=== PATIENT | male | born 1950 | race Caucasian/White ===

== ENCOUNTER 2016-12-04 10:38 | Inpatient (IN) | payer MEDICARE, MEDICAID ==
[~2016-12-04] VITALS: Ht 182.9 cm; Wt 71.0 kg
[2016-12-04] VITALS (11 sets, daily range): BP systolic 83–156; BP diastolic 51–85; PULSE 56–115; RESP 18–20; TEMP 98.4–100.6; O2SAT 97–100
[~2016-12-04 10:38] MED LIST: AMLO5TAB96 PO; ASPI81 PO; GEMF600 PO; GLIP-146 PO; GLIP1TAB18 PO; GLUC10TA3 PO; HYDR-2768 PO; LISI-366 PO; LISI10TA PO; LORA10TA7 PO; METF-324 PO; METO50TA PO; NIFE60TA5 PO; SIMV20 PO
[2016-12-04] MEDS ORDERED: PIPERACIL-TAZO 4.5 GM PREMIX 100 ML IV STA (11:29)
[2016-12-04] MEDS ORDERED: VANCOMYCIN INJ 1,000 MG in SODIUM CHLOR 0.9% 250 ML INJ 250 ML IV STA (11:29)
[2016-12-04] MEDS ORDERED: SODIUM CHLOR 0.9% 1000 ML INJ 1,000 ML IV ONE (11:30)
--- NOTE | 2016-12-04 11:32 | PD ---
HPI Chief Complaint: Skin Problem Time Seen by Provider: 11:29 Travel History International Travel<30 days: No Contact w/Intl Traveler<30days: No Traveled to known affect area: No History of Present Illness HPI 66-year-old male with history of diabetes and schizophrenia, presents to the ER today because of several days history of left foot pain and difficulty walking secondary to pain, has been having fevers according to patient's son. He denies any other issues. Son noticed that there has been increased redness and an ulcer in the bottom of the foot. Modifying Factors: None Associated Signs & Symptoms: Several days of left foot pain and fevers Risk Factors: Diabetic PFSH Past Medical History Blood Disorders: No Cancer: No Cardiovascular Problems: Yes High Cholesterol: Yes Diabetes: Yes Endocrine: Yes Genitourinary: No Hypertension: Yes Immune Disorder: No Musculoskeletal: No Neurologic: No Psychiatric: Yes (SCHIZOPHRENIA) Reproductive: No Respiratory: No Schizophrenia: Yes PNEUMOCCOCAL Vaccine (Year): 2 Past Surgical History Abdominal Surgery: No AICD: No Arteriovenous Shunt: No Cardiac Surgery: No Ear Surgery: No Endocrine Surgery: No Eye Surgery: Yes (CATARACTS) Genitourinary Surgery: No Insulin Pump: No Joint Replacement: No Oral Surgery: No Pacemaker: No Thoracic Surgery: No Social History Alcohol Use: No Tobacco Use: No Substance Use: No Allergies-Medications (Allergen,Severity, Reaction): Coded Allergies: No Known Allergies (Verified , 12/04/16) Reported Meds & Prescriptions Reported Meds & Active Scripts Active Reported Tradjenta (Linagliptin) 5 Mg Tab 5 Mg PO DAILY Metoprolol Succinate ER 24 HR (Metoprolol Succinate) 100 Mg Tab 100 Mg PO DAILY Metformin (Metformin HCl) 1,000 Mg Tab 1,000 Mg PO BIDPC With meals Lisinopril 20 Mg Tab 40 Mg PO DAILY Lantus Inj (Insulin Glargine) 1,000 Unit/10 Ml Vial 10 Units SQ HS Ketoconazole Topical 2% Cream 1 Applic TOPICAL DAILY Invokana (Canagliflozin) 300 Mg Tab 300 Mg PO DAILY Take before 1st meal of day. Hydrochlorothiazide 25 Mg Tab 25 Mg PO DAILY Glipizide ER (Glipizide) 10 Mg Jeanette 10 Mg PO DAILY Take with breakfast or first main meal of the day Folic Acid 1 Mg Tablet 1 Tab PO DAILY Fish Oil 1,000 mg Softgel (Cowden-3/Dha/Epa/Fish Oil) 1,000 Mg Capsule 2,000 Mg PO BID Atorvastatin (Atorvastatin Calcium) 20 Mg Tab 20 Mg PO HS Review of Systems Except as stated in HPI: all other systems reviewed are Neg Physical Exam Narrative GENERAL: Well-developed elderly white male patient currently in mild distress. Awake, alert. SKIN: Focused skin assessment warm/dry. HEAD: Atraumatic. Normocephalic. EYES: Pupils equal and round. No scleral icterus. No injection or drainage. ENT: No nasal bleeding or discharge. Mucous membranes pink and moist. NECK: Trachea midline. No JVD. CARDIOVASCULAR: Regular rate and rhythm. No murmur appreciated. RESPIRATORY: No accessory muscle use. Clear to auscultation. Breath sounds equal bilaterally. GASTROINTESTINAL: Abdomen soft, non-tender, nondistended. Hepatic and splenic margins not palpable. MUSCULOSKELETAL: No obvious deformities. No clubbing. No cyanosis. No edema. Left foot: There is notable edema and erythema especially over the second and third toes and metatarsal areas. There is a 1 cm ulcer at the bottom of the foot as well and this area. NEUROLOGICAL: Awake and alert. No obvious cranial nerve deficits. Motor grossly within normal limits. Normal speech. PSYCHIATRIC: Appropriate mood and affect; insight and judgment normal. Data Data Last Documented VS Vital Signs Date Time Temp Pulse Resp B/P Pulse Ox O2 Delivery O2 Flow Rate FiO2 12/04/16 12:31 90 18 114/62 97 Room Air 12/04/16 11:37 99.2 Orders Complete Blood Count With Diff (12/04/16 11:23) Comprehensive Metabolic Panel (12/04/16 11:23) Lactic Acid Sepsis Protocol (12/04/16 11:23) Blood Culture (12/04/16 11:23) Blood Glucose (12/04/16 11:23) Ecg Monitoring (12/04/16 11:23) Iv Access Insert/Monitor (12/04/16 11:23) Oximetry (12/04/16 11:23) Oxygen Administration (12/04/16 11:23) Sodium Chlor 0.9% 1000 Ml Inj (Ns 1000 M (12/04/16 11:30) Piperacil-Tazo 4.5 Gm Premix (Zosyn 4.5 (12/04/16 11:29) Vancomycin Inj (Vancomycin Inj) (12/04/16 11:29) Foot, Complete ([id number]) (12/04/16 11:29) Wound Culture And Gram Stain (12/04/16 12:46) Admit Order (Ed Use Only) (12/04/16 12:51) Labs Laboratory Tests Test 12/04/16 12/04/16 11:11 11:12 Sodium Level 132 MEQ/L Potassium Level 4.1 MEQ/L Chloride Level 98 MEQ/L Carbon Dioxide Level 21.9 MEQ/L Anion Gap 12 MEQ/L Blood Urea Nitrogen 28 MG/DL Creatinine 1.40 MG/DL Estimat Glomerular Filtration 51 ML/MIN Rate Random Glucose 293 MG/DL Lactic Acid Level 2.0 mmol/L Calcium Level 8.5 MG/DL Total Bilirubin 0.8 MG/DL Aspartate Amino Transf 15 U/L (AST/SGOT) Alanine Aminotransferase 13 U/L (ALT/SGPT) Alkaline Phosphatase 86 U/L Total Protein 7.7 GM/DL Albumin 3.1 GM/DL White Blood Count 15.8 TH/MM3 Red Blood Count 3.68 MIL/MM3 Hemoglobin 11.7 GM/DL Hematocrit 34.7 % Mean Corpuscular Volume 94.5 FL Mean Corpuscular Hemoglobin 31.9 PG Mean Corpuscular Hemoglobin 33.7 % Concent Red Cell Distribution Width 12.8 % Platelet Count 185 TH/MM3 Mean Platelet Volume 8.8 FL Neutrophils (%) (Auto) % Lymphocytes (%) (Auto) % Monocytes (%) (Auto) % Eosinophils (%) (Auto) % Basophils (%) (Auto) % Neutrophils # (Auto) TH/MM3 Lymphocytes # (Auto) TH/MM3 Monocytes # (Auto) TH/MM3 Eosinophils # (Auto) TH/MM3 Basophils # (Auto) TH/MM3 CBC Comment AUTO DIFF Differential Total Cells 100 Counted Neutrophils % (Manual) 84 % Band Neutrophils % 2 % Lymphocytes % 5 % Monocytes % 8 % Basophils % 1 % Neutrophils # (Manual) 13.6 TH/MM3 Differential Comment FINAL DIFF MANUAL Platelet Estimate NORMAL Platelet Morphology Comment NORMAL Red Cell Morphology Comment NORMAL MDM Medical Decision Making Medical Screen Exam Complete: Yes Emergency Medical Condition: Yes Medical Record Reviewed: Yes Interpretation(s) Laboratory Tests Test 12/04/16 12/04/16 11:11 11:12 Sodium Level 132 MEQ/L (136-145) Blood Urea Nitrogen 28 MG/DL (7-18) Creatinine 1.40 MG/DL (0.60-1.30) Estimat Glomerular Filtration 51 ML/MIN (>89) Rate Random Glucose 293 MG/DL (74-106) Albumin 3.1 GM/DL (3.4-5.0) White Blood Count 15.8 TH/MM3 (4.0-11.0) Red Blood Count 3.68 MIL/MM3 (4.50-5.90) Hemoglobin 11.7 GM/DL (13.0-17.0) Hematocrit 34.7 % (39.0-51.0) Neutrophils % (Manual) 84 % (16-70) Lymphocytes % 5 % (9-44) Neutrophils # (Manual) 13.6 TH/MM3 (1.8-7.7) Last 24 hours Impressions Foot X-Ray 12/04/16 1129 Signed Impressions: Service Date/Time: November 11:31 - CONCLUSION: Unremarkable examination of the left foot except for soft tissue air and inflammation in the plantar aspect overlying the second toe and second MTP joint. Joseph Zapata MD Differential Diagnosis Diabetic foot ulcer/cellulitis/rule out sepsis Narrative Course Sepsis protocol initiated with IV fluids and IV antibiotics after cultures were drawn. Lab work is indicative of underlying sepsis with elevated white count and lactate levels. X-ray shows signs of inflammation in the area. At this point, case was discussed with Dr. Raygoza for admission for sepsis and diabetic foot. Podiatry consult was placed for the patient. Diagnosis Primary Impression: Diabetic foot infection Admitting Information Admitting Physician Requests: Admit Cayden Warren MD Dec 04, 2016 11:32
[2016-12-04 11:48] LABS: HEMATOCRIT 34.7 % (39.0-51.0); MEAN CELL VOLUME 94.5 FL (80.0-100.0); MEAN CORPUSCULAR HEMOGLOBIN 31.9 PG (27.0-34.0); MEAN CORPUSCULAR HGB CONC 33.7 % (32.0-36.0); PLATELET COUNT 185 TH/MM3 (150-450); RED BLOOD COUNT 3.68 MIL/MM3 (4.50-5.90); RED CELL DISTRIBUTION WIDTH 12.8 % (11.6-17.2); WHITE BLOOD COUNT 15.8 TH/MM3 (4.0-11.0)
[2016-12-04 11:52] LABS: CHLORIDE 98 MEQ/L (98-107); POTASSIUM 4.1 MEQ/L (3.5-5.1); SODIUM (NA) 132 MEQ/L (136-145)
[2016-12-04 11:54] LABS: HEMO FLAGS AUTO DIFF
[2016-12-04 11:56] LABS: ANION GAP 12 MEQ/L (5-15); BICARBONATE 21.9 MEQ/L (21.0-32.0)
--- NOTE | 2016-12-04 11:56 | RADRPT ---
EXAM DATE/TIME: 12/04/2016 11:31 [facility] COMPARISON: No previous studies available for comparison. INDICATIONS : Left foot pain with inflammation all over. MEDICAL HISTORY : None. SURGICAL HISTORY : None. ENCOUNTER: ACUITY: 1 month PAIN SCORE: 6/10 LOCATION: Left Foot FINDINGS: Three view examination of the left foot demonstrates no soft tissue swelling, dislocation, or fractur e. The tarsal bones appear intact. The interphalangeal and metatarsophalangeal joints are intact. The calcaneus is intact. Bony mineralization is normal. Air within the soft tissues underneath the second MTP joint. No foreign object is identified CONCLUSION: Unremarkable examination of the left foot except for soft tissue air and inflammation in the plantar aspect overlying the second toe and second MTP joint. Joseph Zapata MD on December 04, 2016 at 11:54 Board Certified Radiologist. This report was verified electronically.
[2016-12-04 11:57] LABS: BLOOD UREA NITROGEN 28 MG/DL (7-18)
[2016-12-04 11:59] LABS: ALT (GPT) 13 U/L (12-78); AST (GOT) 15 U/L (15-37)
[2016-12-04 12:00] LABS: GLOMERULAR FILTRATION RATE 51 ML/MIN (>89)
[2016-12-04 12:01] LABS: TOTAL BILIRUBIN ADULT 0.8 MG/DL (0.2-1.0)
[2016-12-04 12:02] LABS: ALKALINE PHOSPHATASE 86 U/L (45-117)
[2016-12-04 12:29] LABS: BANDS 2 % (0-6); BASOPHILS 1 % (0-2); NEUTROPHIL # MANUAL DIFF 13.6 TH/MM3 (1.8-7.7); POLYS (SEG NEUTROPHILS) 84 % (16-70); WBC DIFF SAMPLE 100
[2016-12-04 12:30] LABS: PLATELET ESTIMATE SMEAR NORMAL (NORMAL); PLATELET MORPHOLOGY NORMAL (NORMAL); SCAN/DIFF FINAL DIFF MANUAL
[2016-12-04] MEDS ORDERED: CANA300T PO (12:43)
[2016-12-04] MEDS ORDERED: LISI-515 PO (12:43)
[2016-12-04] MEDS ORDERED: TRAD5TAB PO (12:43)
[2016-12-04] MEDS ORDERED: GLIP1TAB51 PO (12:43)
[2016-12-04] MEDS ORDERED: METO100T9 PO (12:43)
[2016-12-04] MEDS ORDERED: LANTUS2P SQ (12:43)
[2016-12-04] MEDS ORDERED: METF1000 PO (12:43)
[2016-12-04] MEDS ORDERED: ATOR20TA15 PO (12:43)
[2016-12-04] MEDS ORDERED: OMEG100046 PO (12:43)
[2016-12-04] MEDS ORDERED: KETO2CRE TOPICAL (12:43)
[2016-12-04] MEDS ORDERED: FOLI1TAB6 PO (12:43)
[2016-12-04] MEDS ORDERED: HYDR25TA5 PO (12:43)
[2016-12-04] MEDS ORDERED: MAGNESIUM HYDROXIDE SUSP 30 ML CUP PO PRN (13:00)
[2016-12-04] MEDS ORDERED: NALOXONE HCL 0.4 MG/ML AMP IV PRN (13:00)
[2016-12-04] MEDS ORDERED: BISACODYL 10 MG SUPP RECTAL PRN (13:00)
[2016-12-04] MEDS ORDERED: SODIUM CHLORIDE 0.9% FLUSH 10 ML FLUSH IV FLUSH PRN (13:00)
[2016-12-04] MEDS ORDERED: LACTULOSE SYRUP 20 GM/30 ML CUP PO PRN (13:00)
[2016-12-04] MEDS ORDERED: SENNOSIDES 8.6 MG TAB PO PRN (13:00)
[2016-12-04] MEDS ORDERED: Vancomycin Consult Pharmacy 1 EA OTHER SCH (13:30)
[2016-12-04] MEDS ORDERED: INSULIN DETEMIR 100 UNITS/ML VIAL SQ ONE (13:30)
--- NOTE | 2016-12-04 13:46 | HHI.HP ---
[facility] Service [facility] [place] [facility] Primary Care Physician Non-Staff Admission Diagnosis sepsis/diabetic foot Diagnoses: (1) Severe sepsis Diagnosis: Principal (2) Leucocytosis Diagnosis: Principal (3) Diabetic foot infection Diagnosis: Principal (4) Diabetes Diagnosis: Secondary (5) Hypertension Diagnosis: Secondary (6) Hyperlipidemia Diagnosis: Secondary (7) Atrial fibrillation Diagnosis: Secondary Chief Complaint: Foot ulceration Travel History International Travel<30 Days: No Contact w/Intl Traveler <30 Da: No Traveled to Known Affected Are: No Sepsis Criteria SIRS Criteria (2 or more): Heart rate over 90, WBC > 65312, < 4000 or > 10% bands Sepsis Criteria (SIRS+source): Infect source susp/known Severe Sepsis (+one): Hypotension Criteria Outcome: Meets severe sepsis criteria History of Present Illness Written by Rojas You, acting as scribe for Dr. Raygoza on 12/04/16 at 13: 24. 66 year-old male with known history of schizophrenia, hypertension, hyperlipidemia, diabetes, chronic atrial fibrillation, status post permanent pacemaker who presented to hospital with his brother because of left foot wound. The patient was with his brother and [id number], they did watch him on a regular basis due to his schizophrenia. Over the last 2 weeks patient's brother has been out of town working and the patient has been taking care of himself. His [id number] has been given his insulin shots at night. They noticed that the patient has had a foul stench coming from his foot that is progressing getting worse for the last 2 weeks. He noticed in the last week that he had had difficulty in ambulating with limping. When his brother returned back home from working he noticed a foot wound and foul stench and brought the patient to the hospital today for evaluation. Patient does have a long-standing history of diabetes in which he is on insulin as well as oral medications. There is indications that the patient has had an episode of nausea and vomiting. Is no indication the patient had any fever, chills. Patient had workup done and was found to have severe sepsis secondary to diabetic foot ulceration. The x-ray does indicate air in the soft tissue. ER physician is contacted podiatry for recommendations. Unable to palpate pulses in the foot, nursing staff indicates that pulses are only obtained by Doppler. Vascular surgery was contacted for recommendations. Patient's primary medical doctor Dr. Yanez and [place], family indicates that they are adjusting his diabetic medications to get under better control. 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 Review of Systems Cardiovascular: COMPLAINS OF: Lower Extremity Edema Gastrointestinal: COMPLAINS OF: Nausea, Vomiting Musculoskeletal: COMPLAINS OF: Joint pain (left foot pain) Except as stated in HPI: all other systems reviewed are Neg Past Family Social History Past Medical History Chronic atrial fibrillation Hypertension Hyponatremia Diabetes next line schizophrenia Past Surgical History Cataract surgery Permanent pacemaker placement Reported Medications Last Impressions Foot X-Ray 12/04/16 1129 Signed Impressions: Service Date/Time: , December 04, 2016 11:31 - CONCLUSION: Unremarkable examination of the left foot except for soft tissue air and inflammation in the plantar aspect overlying the second toe and second MTP joint. Joseph Zapata MD Allergies: Coded Allergies: MRI PRECAUTION (Verified Adverse Reaction, Severe, 12/04/16) PATIENT HAS A [employer] ADAPTA SR NON COMPATIBLE PACEMAKER EG 12/04/2016. Family History Reviewed is significant for father and brother both with alcoholism. Father from alcoholism Social History Result indication the patient uses tobacco, illicit drugs. No alcohol use recently. Physical Exam Vital Signs Vital Signs Date Time Temp Pulse Resp B/P Pulse Ox O2 Delivery O2 Flow Rate FiO2 12/04/16 12:31 90 18 114/62 97 Room Air 12/04/16 11:46 97 Room Air 12/04/16 11:46 97 Room Air 12/04/16 11:37 99.2 77 20 83/51 97 Room Air 12/04/16 11:22 104 20 103/65 97 Room Air 12/04/16 11:22 128 12/04/16 10:50 99.8 115 18 87/60 97 Physical Exam GENERAL: Well-developed, well-nourished, in no acute distress. alert and orientated HEENT: Head is normocephalic without any lesions or masses noted. Facial features are symmetric. Eyes: Pupils equal round reactive to light. Extraocular muscles are intact. Conjunctivae were clear. Oropharyngeal: Pharynx without any erythema edema. Tongue is midline without deviation. Buccal mucosa is moist without any masses or lesions NECK: Supple without any masses. Trachea midline no deviation. No JVD, no bruits are appreciated CARDIAC: Regular rhythm, regular rate. S1/S2 are heard. No murmurs gallops or rubs. LUNGS: Clear to auscultation bilaterally. No wheeze, rhonchi or rales. No use of accessory muscles on inspiration or expiration. ABDOMEN: Soft, nontender. Nondistended. Bowel sounds heard in all 4 quadrants. No organomegaly or masses. Negative rebound, negative guarding EXTREMITIES: No edema, No cyanosis or clubbing NEUROLOGY: Mood and affect appear appropriate. Cranial nerves II through XII grossly intact. Muscle strength 5/5 in upper and lower extremities bilaterally. Deep tendon reflexes are 2+ in upper and lower extremities bilaterally. LEFT FOOT: Unable to palpate any pedal pulses, posterior tibialis pulse. Nursing staff indicates that pulses are only obtained through Doppler. Patient does have a healing ulcer noted in his heel which measures approximately 2 cm, there is no fluctuance, exudates. Patient does have open wound noted on the plantar surface over the metatarsal phalangeal joint of the second digit, this was an opening measuring 1 cm, with white skin coloration annular measuring about another centimeter. Rather foul odor coming from the foot. Laboratory Laboratory Tests Test 12/04/16 12/04/16 11:11 11:12 Sodium Level 132 Potassium Level 4.1 Chloride Level 98 Carbon Dioxide Level 21.9 Anion Gap 12 Blood Urea Nitrogen 28 Creatinine 1.40 Estimat Glomerular Filtration 51 Rate Random Glucose 293 Lactic Acid Level 2.0 Calcium Level 8.5 Total Bilirubin 0.8 Aspartate Amino Transf 15 (AST/SGOT) Alanine Aminotransferase 13 (ALT/SGPT) Alkaline Phosphatase 86 Total Protein 7.7 Albumin 3.1 White Blood Count 15.8 Red Blood Count 3.68 Hemoglobin 11.7 Hematocrit 34.7 Mean Corpuscular Volume 94.5 Mean Corpuscular Hemoglobin 31.9 Mean Corpuscular Hemoglobin 33.7 Concent Red Cell Distribution Width 12.8 Platelet Count 185 Mean Platelet Volume 8.8 Neutrophils (%) (Auto) Lymphocytes (%) (Auto) Monocytes (%) (Auto) Eosinophils (%) (Auto) Basophils (%) (Auto) Neutrophils # (Auto) Lymphocytes # (Auto) Monocytes # (Auto) Eosinophils # (Auto) Basophils # (Auto) CBC Comment AUTO DIFF Differential Total Cells 100 Counted Neutrophils % (Manual) 84 Band Neutrophils % 2 Lymphocytes % 5 Monocytes % 8 Basophils % 1 Neutrophils # (Manual) 13.6 Differential Comment FINAL DIFF MANUAL Platelet Estimate NORMAL Platelet Morphology Comment NORMAL Red Cell Morphology Comment NORMAL Date/Time Procedure Status Source Growth 12/04/16 11:18 Aerobic Blood Culture Received Blood Peripheral Pending 12/04/16 11:18 Anaerobic Blood Culture Received Blood Peripheral Pending 12/04/16 11:00 Gram Stain Received Wound Foot Pending 12/04/16 11:00 Wound Culture Received Wound Foot Pending Result Diagram: 12/04/16 1112 12/04/16 1111 Imaging Last Impressions Foot X-Ray 12/04/16 1129 Signed Impressions: Service Date/Time: November 11:31 - CONCLUSION: Unremarkable examination of the left foot except for soft tissue air and inflammation in the plantar aspect overlying the second toe and second MTP joint. Joseph Zapata MD Septic Shock Reassessment Heart: Irregular Lungs: Clear Skin: Warm, Mottled Peripheral Pulses: Absent Left Dorsalis Pedis Absent Left Posterior Tibial Capillary Refill: Sluggish, >2 seconds Assessment and Plan Assessment and Plan //Severe sepsis -Patient is criteria on admission with leukocytosis, tachycardia, left diabetic foot wound, hypotension -Continue to follow blood cultures and wound cultures -Patient started on empirical antibiotics to include vancomycin and Zosyn -Continue IV fluids to maintain blood pressure //Left foot diabetic wound -This is highly concerning for osteomyelitis at this time -Foot x-ray does show air in the soft tissue -Antibiotics as above -Podiatry consulted for further recommendations, will likely require surgical intervention -Patient with absent palpable pulses noted in the left lower extremity, -Vascular surgery consulted: Discussed with them who recommended performing CTA of aorta with runoff for evaluation and transfer to [facility] evaluation //Leukocytosis -Secondary to sepsis -Continue to follow CBC //Diabetes -Accu-Cheks with sliding scale insulin -Check hemoglobin A1c //Hypertension -Resume blood pressure medications when blood pressure improved and patient no longer septic //Hyperlipidemia -Check lipid panel -Resume Statin //Chronic atrial fibrillation -Patient with tachycardia presentation, however heart rate improved at this time -Resume medications when blood pressure stabilized //DVT prevention -Sequential compression devices Code Status Full code Discussed Condition With ER physician, nursing staff, patient, brother at bedside Physician Certification 2 Midnight Certification Type: Admission for Inpatient Services Order for Inpatient Services The services are ordered in accordance with Medicare regulations or non- Medicare payer requirements, as applicable. In the case of services not specified as inpatient-only, they are appropriately provided as inpatient services in accordance with the 2-midnight benchmark. Estimated LOS (days): 3 days is the estimated time the patient will need to remain in the hospital, assuming treatment plan goals are met and no additional complications. Post-Hospital Plan: Not yet determined Notes: This note was transcribed by scribe [Rojas You]. I, Dr. Chad Raygoza personally performed the history, physical exam, and medical decision making; and confirmed the accuracy of the information in the transcribed note. Authenticated by Dr. Chad Raygoza on 12/05/16 at 14:36. Problem Qualifiers (1) Diabetes: Qualified Code: E11.621 - Type 2 diabetes mellitus with foot ulcer, with long- term current use of insulin (2) Hypertension: Qualified Code: I10 - Hypertension, unspecified type (3) Hyperlipidemia: Qualified Code: E78.5 - Hyperlipidemia, unspecified hyperlipidemia type (4) Atrial fibrillation: Qualified Code: I48.91 - Atrial fibrillation, unspecified type Rojas You Dec 04, 2016 13:46 Chad Raygoza MD Dec 05, 2016 14:36
[2016-12-04] MEDS: SODIUM CHLOR 0.9% 1000 ML INJ 1,000 ML IV SCH (14:18)
[2016-12-04] MEDS ORDERED: IOHEXOL 350 MG/ML 10 ML VIAL (for RAD DIAG) IV ONE (15:13)
[2016-12-04] MEDS: INSULIN ASPART SUPPLEMENTAL SCALE SQ SCH ×2 (16:08→20:43)
--- NOTE | 2016-12-04 16:52 | RADRPT ---
EXAM DATE/TIME: 12/04/2016 14:26 [facility] COMPARISON: No previous studies available for comparison. INDICATIONS : Left foot pain. Poor pulse and ulcer. Evaluate for occlusion. IV CONTRAST: 100 cc Omnipaque 350 (iohexol) IV RADIATION DOSE: CTDIvol (mGy) MEDICAL HISTORY : Diabetes mellitus type 2. Hypertension. Cardiovascular disease SURGICAL HISTORY : Pacemaker. ENCOUNTER: Initial ACUITY: 4 - 6 days PAIN SCALE: 7/10 LOCATION: Left foot TECHNIQUE: Volumetric scanning was performed using a multi-row detector CT scanner. The data was post processed with a variety of visualization algorithms including full volume maximum intensity projection, multi -planar sliding thin slab reformation, curved planar reformation, and surface rendering techniques. Using automated exposure control and adjustment of the mA and/or kV according to patient size, radiat ion dose was kept as low as reasonably achievable to obtain optimal diagnostic quality images. DICO M format image data is available electronically for review and comparison. FINDINGS: AORTA: Mild atherosclerotic calcifications without significant flow-limiting stenosis or aneurysm. VISCERAL ARTERIES: Celiac, SMA, and JOE are patent. There is a single right renal artery with mild to moderate stenosis just beyond the origin. Duplicated left-sided renal arteries. Dominant renal artery is patent. The sm aller inferior accessory artery is likely moderately stenosed at the origin. RIGHT LEG: INFLOW: Heavily calcified common iliac artery with likely diffuse mild stenosis. Moderate to severe stenosis of the internal iliac artery origin. External iliac artery is patent. Common femoral artery is patent . OUTFLOW: Profunda is patent. Heavily calcified SFA with tandem moderate to severe stenoses proximally just bey ond the origin and approximately 2-3 cm length moderate stenoses in the proximal to mid thigh. There are also tandem mild to moderate stenoses distally near the abductor canal. Popliteal artery is paten t. RUNOFF: Diffusely diseased small caliber vessels. The anterior tibial artery is not well-demonstrated beyond the distal calf. Posterior tibial artery does continue to the plantar arch is also diffusely diseased and very small in caliber. LEFT LEG: INFLOW: Calcified plaque in the proximal left common iliac artery with resultant mild to moderate stenosis. M ild stenosis of the internal iliac artery origin. External iliac artery is patent. Mild to moderate s tenosis of the distal common femoral artery secondary to mixed bulky eccentric plaque distally. OUTFLOW: Profunda is patent. Heavily calcified SFA in the mid to distal spine with resultant diffuse tandem mi ld to moderate stenoses. There is also tandem moderate to severe stenoses at the SFA popliteal juncti on. Popliteal artery is otherwise patent. RUNOFF: Three-vessel runoff with small caliber peroneal artery. GENERAL FINDINGS: Visualized lung bases are clear. Evaluation of the abdominal viscera is limited due to arterial phase technique. Liver, spleen, and gallbladder are grossly unremarkable. There is adreniform enlargement of the adrenal glands bilaterally. There is a 2.5 x 1.9 cm hypodense lesion in the uncinate process o f the pancreas. There is resultant pancreatic ductal dilatation and questionable tail atrophy. Remain ulysses of the pancreas enhances normally. No pancreatic calcifications or peripancreatic fluid collectio n or inflammatory stranding. Kidneys demonstrate symmetrical enhancement without evidence for radiopa que renal calculi or hydronephrosis. Subcentimeter hypodense renal lesions are too small to fully glenn racterize. The bowel appears unremarkable without evidence for obstruction. No significant free fluid or drainable fluid collection. Bladder is mildly distended but otherwise unremarkable. Prostate and seminal vesicles are within norm al limits. CONCLUSION: 1. 2.5 x 1.9 cm hypodense lesion in the uncinate process of the pancreas with resultant pancreatic du ctal dilatation and questionable tail atrophy. Findings are concerning for pancreatic adenocarcinoma. Consider further evaluation with endoscopic ultrasound and possible sampling. 2. Combination of inflow and outflow stenoses on the left, as above. If confirmed with angiography, p atient may benefit from endovascular intervention. 3. SFA outflow and primarily runoff disease on the right, as above. Ross Sarkar MD on December 04, 2016 at 16:24 Board Certified Radiologist. This report was verified electronically.
--- NOTE | 2016-12-04 17:54 | RADRPT ---
EXAM DATE/TIME: 12/04/2016 14:26 [place] COMPARISON: No previous studies available for comparison. INDICATIONS : Left foot pain, ulcer and poor pulse. Evaluate for osteomyelitis. IV CONTRAST: 100 cc Omnipaque 350 (iohexol) IV RADIATION DOSE: ; Reconstructed from previous dataset, no dose MEDICAL HISTORY : Diabetes mellitus type 2. Hypertension. Cardiovascular disease SURGICAL HISTORY : Pacemaker. ENCOUNTER: Initial ACUITY: 4 - 6 days PAIN SCALE: 7/10 LOCATION: Left foot TECHNIQUE: Volumetric scanning of the foot was performed. Using automated exposure control and adjustment of th e mA and/or kV according to patient size, radiation dose was kept as low as reasonably achievable to obtain optimal diagnostic quality images. DICOM format image data is available electronically for re view and comparison. FINDINGS: BONES: No evidence of fracture. Alignment is within normal limits. JOINTS: No evidence of joint narrowing or effusion. There is significant air around the second MTP joint and the second proximal phalangeal bone. No cortical breakthrough is identified. SOFT TISSUES: Muscles, tendons, and neurovascular structures are grossly unremarkable. No evidence of mass, organiz ed fluid collection, or foreign body. CONCLUSION: Significant soft tissue air around the second toe and second MTP joint. I do not see a drainable flui d collection or obvious abscess. There is no underlying bone fracture or foreign body. There is a sof t tissue ulcer with some debris. No foreign body is seen. Joseph Zapata MD on December 04, 2016 at 17:51 Board Certified Radiologist. This report was verified electronically.
[2016-12-04 18:43] LABS: HEMOGLOBIN A1a 1.1 %; HEMOGLOBIN A1b 1.4 %; HEMOGLOBIN Ao 75.5 %; HEMOGLOBIN F 1.8 %; HEMOGLOBIN LA1C 3.4 %; HEMOGLOBIN P3 7.6 %
[2016-12-04] MEDS ORDERED: ACETAMINOPHEN/HYDROcodone 325 MG/5 MG TAB PO PRN (20:15)
[2016-12-04] MEDS ORDERED: ACETAMINOPHEN/HYDROcodone 325 MG/10 MG TAB PO PRN (20:15)
[2016-12-04] MEDS: DOCUSATE SODIUM 50 MG/SENNA 8.6 MG TAB PO SCH (20:37)
[2016-12-04] MEDS: ATORVASTATIN 20 MG TAB PO SCH (20:38)
[2016-12-04] MEDS: SODIUM CHLORIDE 0.9% FLUSH 10 ML FLUSH IV FLUSH SCH (20:38)
[2016-12-04] MEDS: PIPERACIL-TAZO 3.375 GM PREMIX 50 ML IV SCH (20:40)
[2016-12-05] VITALS (7 sets, daily range): BP systolic 107–122; BP diastolic 55–62; PULSE 80–97; RESP 16–20; TEMP 98–99.5; O2SAT 94–99
[2016-12-05] MEDS: SODIUM CHLOR 0.9% 1000 ML INJ 1,000 ML IV SCH ×2 (01:25→13:24)
[2016-12-05] MEDS: PIPERACIL-TAZO 3.375 GM PREMIX 50 ML IV SCH ×4 (02:22→20:21)
[2016-12-05] MEDS: VANCOMYCIN INJ 1,200 MG in SODIUM CHLOR 0.9% 250 ML INJ 250 ML IV SCH (05:40)
[2016-12-05] MEDS: INSULIN ASPART SUPPLEMENTAL SCALE SQ SCH ×3 (05:40→20:19)
--- NOTE | 2016-12-05 06:40 | MB ---
cc: XANDER ALVARADO DPM DATE OF CONSULTATION 12/04/2016 REASON FOR CONSULTATION Left foot ulcer diabetic foot infection. HISTORY OF PRESENT ILLNESS This is a 66-year-old male with a known history of diabetes. His brother admitted that he noticed him limping approximately one week ago and that he had severe pain and swelling. Upon being evaluated in the ER in [place], there is noted to be possible ulcer with gas within the tissue. The patient had signs of sepsis. He was then transferred to [facility] for a vascular evaluation and for surgical intervention. Currently I am seeing the patient bedside. He is very hard of hearing. He is a poor historian. The left foot is causing him pain. PAST MEDICAL HISTORY 1. Chronic atrial fibrillation 2. Hypertension 3. Hyponatremia 4. Diabetes 5. Schizophrenia PAST SURGICAL HISTORY 1. Cataract surgery 2. Permanent pacemaker replacement ALLERGIES NO KNOWN DRUG ALLERGIES. FAMILY HISTORY Father and brother both alcoholism. Father secondary to alcoholism. SOCIAL HISTORY Lives with his brother. The patient does use tobacco. There is noted of illicit drug use. No more details than that. No alcohol as of recently. ALLERGIES MRI precaution. OUTPATIENT MEDICATIONS Reviewed. Inpatient medications also reviewed. He is receiving vancomycin and Zosyn. Please see complete left chart. PHYSICAL EXAM VITALS: Temperature is 99.2, pulse rate 100, respiratory rate 20, blood pressure is 127/85, pulse ox 99% on room air. GENERAL: This is an alert and oriented gentleman seen bedside exhibiting nonlabored respirations. Verbal, appropriate, he is capable of moving upper and lower extremities. The left lower extremity is examined. There is noted to be bruising and ecchymosis with early cyanosis of the second and possibly third digit. There is a foul-smelling ulceration on the plantar aspect of the second MPJ that appears to probe deep. It appears to be open and communicating with a deep infection. There is mild odor. There is no obvious soft tissue emphysema. Clinically, edema and erythema is localized to the patient's forefoot. Pedal pulses are hard to palpate, however the foot is warm. Sensation is decreased to light touch. There is good range of motion of the foot and ankle. The right lower extremity appears to be free from any pathology or lesions. LABORATORY FINDINGS White blood cell 15.8, hemoglobin/hematocrit 11 and 34, platelet count is 185. Chem-7 sodium 132, potassium 4.1, chloride 98, CO2 21.9, BUN is 28, creatinine 1.4, random glucose is 293, hemoglobin A1c is 10.6. IMAGING FINDINGS The first foot x-ray, there appears to be soft tissue density concerning for air within the tissue around the second MPJ. Aorta with runoff, there appears to be three-vessel runoff, but there is mention of possible hypodense pancreatic ductal dilation. Findings are concerning for pancreatic adenocarcinoma, combination of inflow and outflow stenosis on the left awaiting further vascular workup. CT of the foot reveals significant soft tissue air surrounding the second MPJ. No adrenal abscess noted. No underlying fracture of foreign body noted. MICROBIOLOGY Blood culture and wound culture ordered and pending. ASSESSMENT/PLAN Left diabetic foot infection, possible PVD. The plan is to monitor for incision, drainage, debridement and second digit amputation with possible second metatarsal resection. The brother was bedside. I explained in great detail the severity of the infection and the possibility of spread of known infection possibly leading to limb loss. They wish for foot and limb salvage. I will move forward with the procedure tomorrow. The patient will continue n.p.o. after midnight. We will await vascular workup, however, I do feel that debulking and removing the infection to prevent further spread is very important however, the patient may need vascular intervention as deemed appropriate. CARLEY Banegas/TARI /8:01 PM /6:34 AM
--- NOTE | 2016-12-05 08:44 | PD.WCN.NOT ---
Wound Consult Additional Information: Patient not seen by wound care. Podiatry consulted and Doctor Reggie is performing debridement scheduled for today. Please follow recommendations and post op dressing orders by Podiatry.Wound care is singing off. Polina Flores [facility] Dec 05, 2016 08:44
[2016-12-05] MEDS: SODIUM CHLORIDE 0.9% FLUSH 10 ML FLUSH IV FLUSH SCH ×2 (09:00→20:23)
[2016-12-05] MEDS: DOCUSATE SODIUM 50 MG/SENNA 8.6 MG TAB PO SCH ×2 (09:00→20:20)
[2016-12-05] MEDS: METOPROLOL SUCCINATE 50 MG EXTENDED RELEASE TAB PO SCH (09:26)
--- NOTE | 2016-12-05 09:32 | HHI.PR ---
Subjective Remarks The patient is in bed. He says doesn't have the pain at this time leg. He also denies having abdominal pain. No nausea, vomiting, diarrhea or constipation. Says he didn't lost some weight however not able to use this if I how much. He has decreased appetite. BMP reviewed, with low glucose however leg likely lab error. Patient asymptomatic. He is on insulin sliding scale with hypoglycemia protocol Objective Vitals Vital Signs Date Time Temp Pulse Resp B/P Pulse Ox O2 Delivery O2 Flow Rate FiO2 12/05/16 04:00 99.5 80 16 122/59 98 12/05/16 04:00 Room Air 12/05/16 00:00 Room Air 12/05/16 00:00 98.8 88 16 107/55 95 12/04/16 20:00 100.6 56 18 151/65 100 12/04/16 20:00 103 12/04/16 20:00 Room Air 12/04/16 19:49 85 12/04/16 18:23 99.2 104 20 127/85 99 12/04/16 17:27 99.2 97 18 156/65 98 Room Air 12/04/16 16:00 99.7 90 18 142/72 99 Room Air 12/04/16 13:40 98.4 87 18 135/56 98 Room Air 12/04/16 12:31 90 18 114/62 97 Room Air 12/04/16 11:46 97 Room Air 12/04/16 11:46 97 Room Air 12/04/16 11:37 99.2 77 20 83/51 97 Room Air 12/04/16 11:22 104 20 103/65 97 Room Air 12/04/16 11:22 128 12/04/16 10:50 99.8 115 18 87/60 97 I/O 12/04/16 12/04/16 12/04/16 12/05/16 12/05/16 12/05/16 07:00 15:00 23:00 07:00 15:00 23:00 Intake Total 1350 ml 240 ml 441 ml Output Total 500 ml 775 ml 1200 ml Balance 850 ml -535 ml -759 ml Intake Oral 240 ml 0 ml IV Total 1350 ml 441 ml Output Urine Total 500 ml 775 ml 1200 ml # Bowel Movements 0 0 Result Diagram: 12/04/16 1112 12/04/16 1111 Imaging Last Impressions Foot X-Ray 12/04/16 1129 Signed Impressions: Service Date/Time: November 11:31 - CONCLUSION: Unremarkable examination of the left foot except for soft tissue air and inflammation in the plantar aspect overlying the second toe and second MTP joint. Joseph Zapata MD Lower Extremity CT 12/04/16 0000 Signed Impressions: Service Date/Time: , December 04, 2016 14:26 - CONCLUSION: Significant soft tissue air around the second toe and second MTP joint. I do not see a drainable fluid collection or obvious abscess. There is no underlying bone fracture or foreign body. There is a soft tissue ulcer with some debris. No foreign body is seen. Joseph Zapata MD Aorta w/Runoff CTA 12/04/16 0000 Signed Impressions: Service Date/Time: , December 04, 2016 14:26 - CONCLUSION: 1. 2.5 x 1.9 cm hypodense lesion in the uncinate process of the pancreas with resultant pancreatic ductal dilatation and questionable tail atrophy. Findings are concerning for pancreatic adenocarcinoma. Consider further evaluation with endoscopic ultrasound and possible sampling. 2. Combination of inflow and outflow stenoses on the left, as above. If confirmed with angiography, patient may benefit from endovascular intervention. 3. SFA outflow and primarily runoff disease on the right, as above. Ross Sarkar MD Objective Remarks GENERAL: Well-developed, well-nourished, in no acute distress. alert and orientated CARDIAC: Regular rhythm, regular rate. S1/S2 are heard. No murmurs gallops or rubs. LUNGS: Clear to auscultation bilaterally. No wheeze, rhonchi or rales. No use of accessory muscles on inspiration or expiration. ABDOMEN: Soft, nontender. Nondistended. Bowel sounds heard in all 4 quadrants. No organomegaly or masses. Negative rebound, negative guarding EXTREMITIES: No edema, No cyanosis or clubbing NEUROLOGY: Mood and affect appear appropriate. Cranial nerves II through XII grossly intact. Muscle strength 5/5 in upper and lower extremities bilaterally. Deep tendon reflexes are 2+ in upper and lower extremities bilaterally. LEFT FOOT: Unable to palpate any pedal pulses, posterior tibialis pulse. Nursing staff indicates that pulses are only obtained through Doppler. Patient does have a healing ulcer noted in his heel which measures approximately 2 cm, there is no fluctuance, exudates. Patient does have open wound noted on the plantar surface over the metatarsal phalangeal joint of the second digit, this was an opening measuring 1 cm, with white skin coloration annular measuring about another centimeter. Rather foul odor coming from the foot. A/P Problem List: (1) Severe sepsis ICD Code: A41.9 Status: Acute (2) Leucocytosis ICD Code: D72.829 Status: Acute (3) Diabetic foot infection ICD Code: E11.69 Status: Acute (4) Diabetes ICD Code: E11.9 Status: Acute (5) Hypertension ICD Code: I10 Status: Acute (6) Hyperlipidemia ICD Code: E78.5 Status: Acute (7) Atrial fibrillation ICD Code: I48.91 Status: Acute Assessment and Plan Severe sepsis Patient is criteria on admission with leukocytosis, tachycardia, left diabetic foot wound, hypotension Continue to follow blood cultures and wound cultures Patient started on empirical antibiotics to include vancomycin and Zosyn Continue IV fluids to maintain blood pressure Left foot diabetic wound This is highly concerning for osteomyelitis at this time Foot x-ray does show air in the soft tissue Antibiotics as above Podiatry consulted for further recommendations, will likely require surgical intervention Patient with absent palpable pulses noted in the left lower extremity, Vascular surgery consulted: Had CTA of aorta with runoff for evaluation. Vascular surgeon ff, appreciate recommendations. Npo as poss OT today Leukocytosis Secondary to sepsis Continue to follow CBC Possible pancreatic adenocarcinoma per imaging . CT reviewed. Consult oncology for further recommendations. Diabetes mellitus type 2, uncontrolled A1c 10.6 Accu-Cheks with sliding scale insulin hemoglobin A1c 10.6 this admission BMP reviewed, with low glucose however leg likely lab error. Patient asymptomatic. He is on insulin sliding scale with hypoglycemia protocol Hypertension Resume blood pressure medications when blood pressure improved and patient no longer septic Hyperlipidemia Check lipid panel Resume Statin Chronic atrial fibrillation Patient with tachycardia presentation, however heart rate improved at this time Resume medications when blood pressure stabilized DVT prevention -Sequential compression devices Code Status Full code Discussed Condition With patient, nurse Discharge pending improvement. Patient is followed by podiatry, vascular surgeon. Also consulted hematology oncology consult CT scan there is pancreatic mass concerning for adenocarcinoma. Problem Qualifiers (1) Diabetes: Qualified Code: E11.621 - Type 2 diabetes mellitus with foot ulcer, with long- term current use of insulin (2) Hypertension: Qualified Code: I10 - Hypertension, unspecified type (3) Hyperlipidemia: Qualified Code: E78.5 - Hyperlipidemia, unspecified hyperlipidemia type (4) Atrial fibrillation: Qualified Code: I48.91 - Atrial fibrillation, unspecified type Ebony Aaron MD Dec 05, 2016 09:32
[2016-12-05 09:57] LABS: AUTOMATED NEUTROPHIL # 11.8 TH/MM3 (1.8-7.7); BASOPHIL # 0.1 TH/MM3 (0-0.2); BASOPHIL % 0.6 % (0.0-2.0); EOSINOPHIL % 0.2 % (0.0-4.0); HEMATOCRIT 30.8 % (39.0-51.0); HEMO FLAGS DIFF FINAL; LYMPH % 5.5 % (9.0-44.0); LYMPHOCYTE # 0.8 TH/MM3 (1.0-4.8); MEAN CELL VOLUME 95.9 FL (80.0-100.0); MEAN CORPUSCULAR HGB CONC 33.4 % (32.0-36.0); MONO % 10.3 % (0.0-8.0); NEUT % 83.4 % (16.0-70.0); PLATELET COUNT 179 TH/MM3 (150-450); RED BLOOD COUNT 3.21 MIL/MM3 (4.50-5.90); RED CELL DISTRIBUTION WIDTH 13.6 % (11.6-17.2); WHITE BLOOD COUNT 14.1 TH/MM3 (4.0-11.0)
[2016-12-05 10:24] LABS: POTASSIUM 3.3 MEQ/L (3.5-5.1)
[2016-12-05] MEDS ORDERED: PROPOFOL 200 MG/20 ML AMP IV ONE (12:00)
[2016-12-05] MEDS ORDERED: ACETAMINOPHEN 1000 MG/100 ML VIAL IV ONE (12:00)
[2016-12-05] MEDS ORDERED: VANCOMYCIN INJ 1,000 MG in SODIUM CHLOR 0.9% 250 ML INJ 250 ML IV SCH (13:30)
--- NOTE | 2016-12-05 14:55 | PD.VS.CON ---
History of Present Illness Consult Requested by: Past/Family/Social History Past Medical History PAST MEDICAL HISTORY 1. Chronic atrial fibrillation 2. Hypertension 3. Hyponatremia 4. Diabetes 5. Schizophrenia PAST SURGICAL HISTORY 1. Cataract surgery 2. Permanent pacemaker replacement ALLERGIES NO KNOWN DRUG ALLERGIES. FAMILY HISTORY Father and brother both alcoholism. Father secondary to alcoholism. SOCIAL HISTORY Lives with his brother. The patient does use tobacco. There is noted of illicit drug use. No more details than that. No alcohol as of recently. ALLERGIES MRI precaution. Home Medications Reported Medications Linagliptin (Tradjenta)5 Mg Tab5 Mg PO DAILY #30 TAB Ref 0 12/04/16 Metoprolol Succinate ER 24 HR 100 Mg [id number] Mg PO DAILY #30 TAB Ref 0 12/04/16 Metformin 1,000 Mg Tab1,000 Mg PO BIDPC #60 TAB Ref 0 With meals 12/04/16 Lisinopril 20 Mg Tab40 Mg PO DAILY #30 TAB Ref 0 12/04/16 Insulin Glargine Inj (Lantus Inj)1,000 Unit/10 Ml Vial10 Units SQ HS Ref 0 12/04/16 Ketoconazole Topical 2% Cream1 Applic TOPICAL DAILY #15 GM Ref 0 12/04/16 Canagliflozin (Invokana)300 Mg [id number] Mg PO DAILY #30 TAB Ref 0 Take before 1st meal of day. 12/04/16 Hydrochlorothiazide 25 Mg Tab25 Mg PO DAILY #30 TAB Ref 0 12/04/16 Glipizide ER 10 Mg Taber10 Mg PO DAILY #30 TAB Ref 0 Take with breakfast or first main meal of the day 12/04/16 Folic Acid 1 Mg Tablet1 Tab PO DAILY 12/04/16 [place]-3/Dha/Epa/Fish Oil (Fish Oil 1,000 mg Softgel)1,000 Mg Capsule2,000 Mg PO BID 12/04/16 Atorvastatin 20 Mg Tab20 Mg PO HS #30 TAB Ref 0 12/04/16 Coded Allergies: MRI PRECAUTION (Verified Adverse Reaction, Severe, 12/04/16) PATIENT HAS A [employer] ADAPTA SR NON COMPATIBLE PACEMAKER EG 12/04/2016. Physical Exam Vitals/I&O Date Time Temp Pulse Resp B/P Pulse Ox O2 Delivery O2 Flow Rate FiO2 12/05/16 08:45 Room Air 12/05/16 08:00 98.3 92 20 118/57 94 12/05/16 07:57 97 7/21/17 04:00 99.5 80 16 122/59 98 12/05/16 04:00 Room Air 12/05/16 00:00 Room Air 12/05/16 00:00 98.8 88 16 107/55 95 12/04/16 20:00 100.6 56 18 151/65 100 12/04/16 20:00 103 12/04/16 20:00 Room Air 12/04/16 19:49 85 12/04/16 18:23 99.2 104 20 127/85 99 12/04/16 17:27 99.2 97 18 156/65 98 Room Air 12/04/16 16:00 99.7 90 18 142/72 99 Room Air 12/05/16 12/05/16 12/05/16 07:00 15:00 23:00 Intake Total 441 ml 751 ml Output Total 1200 ml Balance -759 ml 751 ml Neuro: A&Ox3 Neck: Supple. Heart: irregular Lungs: CTA bilateral Abdomen: soft and non-distended. Vascular: palpable femoral bilaterally and phasic PT bilaterally. Extremities: left 2 nd Distal MP foul smelling with ischemic changes. Laboratory Tests Test 12/04/16 12/05/16 22:36 08:39 Lactic Acid Level 0.7 White Blood Count 14.1 Red Blood Count 3.21 Hemoglobin 10.3 Hematocrit 30.8 Mean Corpuscular Volume 95.9 Mean Corpuscular Hemoglobin 32.0 Mean Corpuscular Hemoglobin 33.4 Concent Red Cell Distribution Width 13.6 Platelet Count 179 Mean Platelet Volume 8.9 Neutrophils (%) (Auto) 83.4 Lymphocytes (%) (Auto) 5.5 Monocytes (%) (Auto) 10.3 Eosinophils (%) (Auto) 0.2 Basophils (%) (Auto) 0.6 Neutrophils # (Auto) 11.8 Lymphocytes # (Auto) 0.8 Monocytes # (Auto) 1.5 Eosinophils # (Auto) 0.0 Basophils # (Auto) 0.1 CBC Comment DIFF FINAL Differential Comment Sodium Level 137 Potassium Level 3.3 Chloride Level 104 Carbon Dioxide Level 21.0 Anion Gap 12 Blood Urea Nitrogen 18 Creatinine 0.88 Estimat Glomerular Filtration 87 Rate Random Glucose 42 Calcium Level 8.0 Date/Time Procedure Status Source Growth 12/04/16 11:18 Aerobic Blood Culture - Preliminary Resulted Blood Peripheral NO GROWTH IN 1 DAY 12/04/16 11:18 Anaerobic Blood Culture - Preliminary Resulted Blood Peripheral NO GROWTH IN 1 DAY 12/04/16 11:00 Gram Stain - Final Resulted Wound Foot 12/04/16 11:00 Wound Culture Resulted Wound Foot Pending Last 48 hours Impressions Foot X-Ray 12/04/16 1129 Signed Impressions: Service Date/Time: November 11:31 - CONCLUSION: Unremarkable examination of the left foot except for soft tissue air and inflammation in the plantar aspect overlying the second toe and second MTP joint. Joseph Zapata MD Lower Extremity CT 12/04/16 0000 Signed Impressions: Service Date/Time: November 14:26 - CONCLUSION: Significant soft tissue air around the second toe and second MTP joint. I do not see a drainable fluid collection or obvious abscess. There is no underlying bone fracture or foreign body. There is a soft tissue ulcer with some debris. No foreign body is seen. Joseph Zapata MD Aorta w/Runoff CTA 12/04/16 0000 Signed Impressions: Service Date/Time: November 14:26 - CONCLUSION: 1. 2.5 x 1.9 cm hypodense lesion in the uncinate process of the pancreas with resultant pancreatic ductal dilatation and questionable tail atrophy. Findings are concerning for pancreatic adenocarcinoma. Consider further evaluation with endoscopic ultrasound and possible sampling. 2. Combination of inflow and outflow stenoses on the left, as above. If confirmed with angiography, patient may benefit from endovascular intervention. 3. SFA outflow and primarily runoff disease on the right, as above. Ross Sarkar MD Assessment and Plan Assessment: (1) Diabetic foot infection Status: Acute Plan 66 year old male with hx of PAD and DM with diabetic foot infection with air tracking in SQ tissue. Patient will have surgical management of foot by podiatry. Patient with palpable pulses in the groin with signals distally. Suspect outflow and runoff disease. Will review CTA and interim would recommend vein mapping and non-invasive arterial study. Ti Joaquin DO Dec 05, 2016 14:55
--- NOTE | 2016-12-05 15:00 | EKG ---
Date Performed: 12/04/2016 Time Performed: 11:27:29 PTAGE: 66 years EKG: ATRIAL FIBRILLATION WITH RVR IS NEW LEFT BUNDLE BRANCH BLOCK ABNORMAL ECG PREVIOUS TRACING : 06/10/2011 13.45 Compared to the previous tracing LBBB IS NEW DOCTOR: Ronald Quintero Interpretating Date/Time 12/05/2016 14:59:17
[2016-12-05] MEDS ORDERED: HYDROmorphone HCL PF 2 MG/ML VIAL ONE (15:48)
[2016-12-05] MEDS ORDERED: BUPIVACAINE HCL PF 0.25% 30 ML VIAL ONE (16:12)
[2016-12-05] MEDS ORDERED: BUPIVACAINE HCL PF 0.25% 30 ML VIAL INFIL ONE (16:53)
[2016-12-05] MEDS ORDERED: NEOMYCIN/POLYMYXIN 1 ML G.U. IRRIGANT TOPICAL ONE (17:10)
[2016-12-05] MEDS ORDERED: DO NOT ADM ANY ANTICOAGULANT DRUGS PRN (17:30)
--- NOTE | 2016-12-05 17:35 | HHI.PR ---
Immediate Post Op Note Procedure Date: Dec 05, 2016 Pre Op Diagnosis: left foot abscess infection gangrene 2nd digit Post Op Diagnosis: same Surgeon: Hakan Paredes Client Executive(s): scrub Procedure: Left foot incision drainage, 2nd digit amputation, 2nd metatarsal resection Findings: deep gas of 2nd MPJ, no deep tunnelling up foot, dorsal or plantar, decreased bleeding noted Complications: none Specimen(s) removed: 2nd digit and 2nd metatarsal for path, deep bone/joint capsule Estimated blood loss: less 30 mL Anesthesia: General, Local Drains: Other Fluids: seen anesthesia IVF Tourniquet time (min at mmHg) esmark around ankle for 10 min Patient to: PACU Patient Condition: Fair Implant/Devices: SEE IMPLANT LOG (if applicable) Date/Time of Procedure: SEE SURGICAL CARE RECORD Hakan Paredes DPM Dec 05, 2016 17:35
[2016-12-05] MEDS ORDERED: DEXTROSE 50% IN WATER 50 ML SYRINGE ONE (17:50)
[2016-12-05] MEDS ORDERED: DEXTROSE 50% IN WATER 50 ML VIAL(D50) IV ONE (19:00)
[2016-12-05] MEDS: INSULIN DETEMIR 100 UNITS/ML VIAL SQ SCH (20:20)
[2016-12-05] MEDS: ATORVASTATIN 20 MG TAB PO SCH (20:21)
--- NOTE | 2016-12-05 22:10 | MB ---
cc: CHERYLE BLANCHARD M.D. DATE OF CONSULTATION 12/05/16 REASON FOR CONSULTATION Consult requested by [facility] hospitalist for evaluation of pancreatic mass. HISTORY OF PRESENT ILLNESS Janak is a 66-year-old male. He has a history of schizophrenia, hypertension, diabetes mellitus, atrial fibrillation and hypercholesterolemia. The patient was brought into the emergency room after his brother found out that he was limping and a foul smell was coming out from the left foot area. In the emergency room the patient was found to have diabetic ulcer foot on the left side. The patient is admitted to the hospital. The cocoa roaster was consulted. The CAT scan of the lower extremity shows significant soft tissue air around the second toe and second MTP joint. There is no underlying bone fracture or foreign body noted. The patient underwent amputation of the second left toe. I am seeing the patient in the PACU. The patient had an aorta run off CT angiogram to evaluate for peripheral vascular disease. Incidentally it showed a 2.5 x 1.9 cm hypodense lesion in the uncinate process of the pancreas with the resultant pancreatic ductal dilatation and questionable tail atrophy. Findings are concerning for pancreatic adenocarcinoma. I have been asked to see the patient for further evaluation. The patient had significant peripheral vascular disease which is most likely due to diabetes mellitus. Vascular surgery consult is still pending. The patient is a poor historian most likely due to his psychiatric illness. I have discussed with his brother on the floor earlier when I saw him. REVIEW OF SYSTEMS The review of systems is not possible as the patient came out from the surgery and is still in the PACU. PAST MEDICAL HISTORY Diabetes mellitus, hypertension, schizophrenia, hypercholesterolemia, atrial fibrillation. PAST SURGICAL HISTORY Cataract, permanent pacemaker. ALLERGIES None. MEDICATIONS Please see EMR. FAMILY HISTORY Mother from non-Hodgkin's lymphoma. Father from alcoholism. SOCIAL HISTORY The patient smokes cigarettes. Quit alcohol a long time ago. PHYSICAL EXAMINATION GENERAL: This is a well-developed, well-nourished white male with flat affect. VITAL SIGNS: Temperature 97.6, heart rate is 86, blood pressure 113/55. HEENT: PERRLA, EOMI, anicteric. No oral lesions noted. NECK: No lymphadenopathy noted. LUNGS: Clear. No wheezing, rhonchi or rales. HEART: Heart is regular rate and rhythm. ABDOMEN: Abdomen is soft and nontender. No hepatosplenomegaly. EXTREMITIES: Left foot is in surgical bandage. The patient just had amputation of the left second toe. NEUROLOGY: The patient awake, alert, oriented x3. SKIN: No significant lesions noted. ASSESSMENT 1. 2.6 cm pancreatic mass, suspicious for malignancy. 2. Diabetic left foot status post amputation of the left second toe. 3. Diabetes mellitus. 4. Hypertension. 5. Schizophrenia. 6. Hypercholesterolemia. 7. Atrial fibrillation. PLAN I have reviewed his available records and I have discussed with the patient and his brother regarding the CT angiogram aorta runoff findings which incidentally showed 2.5 x 1.9 cm hypodense lesion in the pancreas, suspicious for malignancy. My recommendation is to check the tumor markers, CEA and CA 19-9. I will consult GI for endoscopic ultrasound biopsy of the pancreatic mass for tissue diagnosis. Once we have pathological confirmation of malignancy then we will discuss with the patient and his brother regarding the treatment options. Thank you for asking my opinion. Elder Blanchard MD /EO /9:47 PM /10:02 PM LEX[facility]
--- NOTE | 2016-12-05 23:59 | RADRPT ---
EXAM DATE/TIME: 12/05/2016 23:02 [facility] COMPARISON: No previous studies available for comparison. INDICATIONS : Pre vascular surgery. MEDICAL HISTORY : Hypercholesterolemia. Hypertension. A-fib. Diabetes. Schizophrenia. SURGICAL HISTORY : Pacemaker. ENCOUNTER: Initial ACUITY: 1 day PAIN SCORE: 0/10 LOCATION: Left leg. TECHNIQUE: Venous ultrasound of the leg was performed from the inguinal ligament to the proximal calf. Real-brit e, color Doppler and spectral tracing, compression and augmentation techniques were used. FINDINGS: There is normal compressibility of the deep venous system from the inguinal region to the proximal ca lf. No echogenic clot is seen in the lumen of the common femoral, femoral, popliteal, and posterior tibial veins. There is a normal response of the venous system to proximal and distal augmentation an d respiration. There is an elongated 3 cm mostly anechoic collection in the left popliteal fossa, li whitney Ellsworth's cyst. CONCLUSION: No evidence of left leg DVT. 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 This could be confirmed with knee MRI if clinically indicated Fabio Mulligan MD on December 05, 2016 at 23:57 Board Certified Radiologist. This report was verified electronically.
--- NOTE | 2016-12-06 | RADRPT ---
EXAM DATE/TIME: 12/05/2016 23:14 [facility] COMPARISON: No previous studies available for comparison. INDICATIONS : Pre vascular surgery. MEDICAL HISTORY : Hypercholesterolemia. Hypertension. A-fib. Diabetes. Schizophrenia. SURGICAL HISTORY : Pacemaker. ENCOUNTER: Initial ACUITY: 1 day PAIN SCORE: 0/10 LOCATION: Left leg. GREATER SAPHENOUS VEIN THIGH: PROXIMAL: 5 mm MID: 4 mm DISTAL: 4 mm CALF: PROXIMAL: 2 mm MID: 1 mm DISTAL: 2 mm FINDINGS: The venous system of the lower extremity is patent by color Doppler imaging. Measurements of the leg veins (in mm) are listed above. CONCLUSION: Patent left greater saphenous vein Fabio Mulligan MD on December 05, 2016 at 23:58 Board Certified Radiologist. This report was verified electronically.
[2016-12-06] MEDS: VANCOMYCIN INJ 1,200 MG in SODIUM CHLOR 0.9% 250 ML INJ 250 ML IV SCH ×2 (00:04→17:45)
[2016-12-06 00:08] VITALS: BP 107/58; PULSE 85; RESP 20; TEMP 97.8; O2SAT 97
[2016-12-06] MEDS: SODIUM CHLOR 0.9% 1000 ML INJ 1,000 ML IV SCH ×2 (01:15→21:50)
[2016-12-06] MEDS: PIPERACIL-TAZO 3.375 GM PREMIX 50 ML IV SCH ×4 (01:58→21:16)
[2016-12-06 04:00] VITALS: BP 129/72; PULSE 84; RESP 20; TEMP 97.8; O2SAT 97
[2016-12-06 05:41] LABS: AUTOMATED NEUTROPHIL # 10.7 TH/MM3 (1.8-7.7); BASOPHIL # 0.1 TH/MM3 (0-0.2); BASOPHIL % 0.8 % (0.0-2.0); HEMATOCRIT 32.2 % (39.0-51.0); HEMO FLAGS DIFF FINAL; LYMPH % 4.7 % (9.0-44.0); LYMPHOCYTE # 0.6 TH/MM3 (1.0-4.8); MEAN CELL VOLUME 96.8 FL (80.0-100.0); MEAN CORPUSCULAR HEMOGLOBIN 31.7 PG (27.0-34.0); MEAN CORPUSCULAR HGB CONC 32.7 % (32.0-36.0); MONO % 5.5 % (0.0-8.0); PLATELET COUNT 185 TH/MM3 (150-450); RED BLOOD COUNT 3.32 MIL/MM3 (4.50-5.90); RED CELL DISTRIBUTION WIDTH 13.6 % (11.6-17.2); WHITE BLOOD COUNT 12.1 TH/MM3 (4.0-11.0)
[2016-12-06 05:45] LABS: POTASSIUM 3.7 MEQ/L (3.5-5.1)
[2016-12-06] MEDS: INSULIN ASPART SUPPLEMENTAL SCALE SQ SCH ×4 (05:59→21:51)
[2016-12-06 08:00] VITALS: BP 134/69; PULSE 77; PULSE 81; RESP 20; TEMP 97.7; O2SAT 97
[2016-12-06] MEDS: SODIUM CHLORIDE 0.9% FLUSH 10 ML FLUSH IV FLUSH SCH ×2 (08:07→21:00)
[2016-12-06] MEDS: METOPROLOL SUCCINATE 50 MG EXTENDED RELEASE TAB PO SCH (09:37)
[2016-12-06] MEDS: DOCUSATE SODIUM 50 MG/SENNA 8.6 MG TAB PO SCH ×2 (09:38→21:16)
--- NOTE | 2016-12-06 09:54 | PD.CONS ---
HPI History of Present Illness This is a 66 year old male with a history of diabetes, schizophrenia, atrial fibrillation, hypertension, hyperlipidemia, and peripheral arterial disease, who presented to the ER for evaluation of left foot pain and difficulty ambulating. He also complained of subjective fevers. His son reported that he noticed that there had been increased redness and an ulcer on the bottom of his left foot. Podiatry was consulted for left diabetic foot infection and possible PVD and he went for left foot incision drainage, 2nd digit amputation, 2nd metatarsal resection (12/05/16) with Dr. Hooks. He was also evaluated with Aorta w/Runoff CTA (12/04/16)----> 1. 2.5 x 1.9 cm hypodense lesion in the uncinate process of the pancreas with resultant pancreatic ductal dilatation and questionable tail atrophy. Findings are concerning for pancreatic adenocarcinoma. Consider further evaluation with endoscopic ultrasound and possible sampling. 2. Combination of inflow and outflow stenoses on the left, as above. If confirmed with angiography, patient may benefit from endovascular intervention. 3. SFA outflow and primarily runoff disease on the right, as above. Oncology was consulted for evaluation of pancreatic lesion. CEA 1.4, Ca19-9 20.8. GI was then consulted for further evaluation of pancreatic lesion with endoscopic ultrasound and biopsy. The patient denies any prior history of known pancreatitis. He reports that he did drink heavily in the past, but stopped about 20 years ago. He reports that his appetite is good and he is eating normally. He does report that his weight tends to fluctuate, but he is not able to quantify any weight loss. He reports that he did have some nausea and vomiting early Cal[place] morning, consisting of bilious material, but no hematemesis. He has not had any further episodes. He denies any abdominal pain , changes in bowel habits, constipation, diarrhea, melena, or hematochezia. ( Avani Barrientos) PFSH Past Medical History Chronic atrial fibrillation Hypertension Hyponatremia Diabetes Schizophrenia Peripheral arterial disease Cataracts Past Surgical History Cataract surgery Permanent pacemaker placement (Avani Barrientos) Coded Allergies: MRI PRECAUTION (Verified Adverse Reaction, Severe, 12/04/16) PATIENT HAS A [employer] ADAPTA SR NON COMPATIBLE PACEMAKER EG 12/04/2016. Medications Allergies Coded Allergies Type Severity Reaction Last Updated Verified MRI PRECAUTION Adverse Reaction Severe 12/04/16 Yes Active Scripts Medications Dose Route/Sig Days Date Category Dose Instructions Tradjenta (Linagliptin) 5 Mg Tab 5 Mg PO DAILY 12/04/16 Reported Metoprolol Succinate ER 24 HR (Metoprolol Succinate) 100 Mg Tab 100 Mg PO DAILY 12/04/16 Reported Metformin (Metformin HCl) 1,000 Mg Tab 1,000 Mg PO BIDPC 12/04/16 Reported With meals Lisinopril 20 Mg Tab 40 Mg PO DAILY 12/04/16 Reported Lantus Inj (Insulin Glargine) 1,000 Unit/10 Ml Vial 10 Units SQ HS 12/04/16 Reported Ketoconazole Topical 2% Cream 1 Applic TOPICAL DAILY 12/04/16 Reported Invokana (Canagliflozin) 300 Mg Tab 300 Mg PO DAILY 12/04/16 Reported Take before 1st meal of day. Hydrochlorothiazide 25 Mg Tab 25 Mg PO DAILY 12/04/16 Reported Glipizide ER (Glipizide) 10 Mg Jeanette 10 Mg PO DAILY 12/04/16 Reported Take with breakfast or first main meal of the day Folic Acid 1 Mg Tablet 1 Tab PO DAILY 12/04/16 Reported Fish Oil 1,000 mg Softgel (Vaughn-3/Dha/Epa/Fish Oil) 1,000 Mg Capsule 2,000 Mg PO BID 12/04/16 Reported Atorvastatin (Atorvastatin Calcium) 20 Mg Tab 20 Mg PO HS 12/04/16 Reported Family History Mother from non hodgkin's lymphoma Father from complications of alcoholism Social History No use of tobacco No current ETOH use, prior ETOH abuse, but stopped 20 years ago. (Avani Barrientos) Review of Systems Constitutional: COMPLAINS OF: Fatigue, Fever, Weight gain, Weight loss, DENIES : Chills, Change in appetite Respiratory: DENIES: Cough, Shortness of breath Cardiovascular: DENIES: Chest pain Gastrointestinal: COMPLAINS OF: Nausea, Vomiting, DENIES: Abdominal pain, Black stools, Bloody stools, Constipation, Diarrhea, Anorexia, Swelling of Abdomen, Heartburn, Hematemesis Musculoskeletal: COMPLAINS OF: Joint pain, Stiffness, Joint Swelling Hematologic/lymphatic: DENIES: Bruising Neurologic: DENIES: Headache Psychiatric: COMPLAINS OF: Anxiety, DENIES: Confusion (Avani Barrientos) GI Exam Vitals I&O Vital Signs Date Time Temp Pulse Resp B/P Pulse Ox O2 Delivery O2 Flow Rate FiO2 12/06/16 08:00 97.7 81 20 134/69 97 12/06/16 04:00 97.8 84 20 129/72 97 12/06/16 04:00 Room Air 12/06/16 00:08 97.8 85 20 107/58 97 12/06/16 00:00 Room Air 12/05/16 21:00 84 12/05/16 20:00 Room Air 12/05/16 20:00 98.0 83 16 113/58 95 12/05/16 19:15 84 17 111/55 95 Room Air 12/05/16 19:00 85 15 116/56 95 Room Air 12/05/16 18:45 86 16 120/56 93 Room Air 12/05/16 18:30 96 17 97/54 97 Room Air 12/05/16 18:15 92 27 102/52 95 Room Air 12/05/16 18:00 97 12 115/58 97 Nasal Cannula 3 12/05/16 17:45 84 12 113/55 97 Nasal Cannula 3 12/05/16 17:30 97.6 86 12 113/55 100 Nasal Cannula 3 12/05/16 12:00 98.8 90 20 118/62 99 I/O 12/05/16 12/05/16 12/05/16 12/06/16 12/06/16 12/06/16 07:00 15:00 23:00 07:00 15:00 23:00 Intake Total 441 ml 751 ml 860 ml 1249 ml Output Total 1200 ml 400 ml 110 ml 325 ml Balance -759 ml 351 ml 750 ml 924 ml Intake Oral 0 ml 0 ml 360 ml 360 ml IV Total 441 ml 751 ml 889 ml Other 500 ml Output Urine Total 1200 ml 400 ml 100 ml 325 ml Estimated Blood Loss 10 ml # Voids 2 # Bowel Movements 0 1 0 0 Imaging Last Impressions Lower Extremity Ultrasound 12/05/16 0000 Signed Impressions: Service Date/Time: Monday, December 05, 2016 23:02 - CONCLUSION: No evidence of left leg DVT. 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 This could be confirmed with knee MRI if clinically indicated Fabio Mulligan MD Foot X-Ray 12/04/16 1129 Signed Impressions: Service Date/Time: November 11:31 - CONCLUSION: Unremarkable examination of the left foot except for soft tissue air and inflammation in the plantar aspect overlying the second toe and second MTP joint. Joseph Zapata MD Lower Extremity CT 12/04/16 0000 Signed Impressions: Service Date/Time: November 14:26 - CONCLUSION: Significant soft tissue air around the second toe and second MTP joint. I do not see a drainable fluid collection or obvious abscess. There is no underlying bone fracture or foreign body. There is a soft tissue ulcer with some debris. No foreign body is seen. Joseph Zapata MD Aorta w/Runoff CTA 12/04/16 0000 Signed Impressions: Service Date/Time: November 14:26 - CONCLUSION: 1. 2.5 x 1.9 cm hypodense lesion in the uncinate process of the pancreas with resultant pancreatic ductal dilatation and questionable tail atrophy. Findings are concerning for pancreatic adenocarcinoma. Consider further evaluation with endoscopic ultrasound and possible sampling. 2. Combination of inflow and outflow stenoses on the left, as above. If confirmed with angiography, patient may benefit from endovascular intervention. 3. SFA outflow and primarily runoff disease on the right, as above. Ross Sarkar MD Laboratory Test 12/05/16 12/05/16 12/06/16 17:50 20:20 04:51 Random Glucose 45 MG/DL 125 MG/DL Carcinoembryonic Antigen 1.4 NG/ML CA 19-9 Antigen 20.8 U/ML White Blood Count 12.1 TH/MM3 Red Blood Count 3.32 MIL/MM3 Hemoglobin 10.5 GM/DL Hematocrit 32.2 % Mean Corpuscular Volume 96.8 FL Mean Corpuscular Hemoglobin 31.7 PG Mean Corpuscular Hemoglobin 32.7 % Concent Red Cell Distribution Width 13.6 % Platelet Count 185 TH/MM3 Mean Platelet Volume 8.1 FL Neutrophils (%) (Auto) 89.0 % Lymphocytes (%) (Auto) 4.7 % Monocytes (%) (Auto) 5.5 % Eosinophils (%) (Auto) 0.0 % Basophils (%) (Auto) 0.8 % Neutrophils # (Auto) 10.7 TH/MM3 Lymphocytes # (Auto) 0.6 TH/MM3 Monocytes # (Auto) 0.7 TH/MM3 Eosinophils # (Auto) 0.0 TH/MM3 Basophils # (Auto) 0.1 TH/MM3 CBC Comment DIFF FINAL Differential Comment Sodium Level 137 MEQ/L Potassium Level 3.7 MEQ/L Chloride Level 105 MEQ/L Carbon Dioxide Level 24.0 MEQ/L Anion Gap 8 MEQ/L Blood Urea Nitrogen 18 MG/DL Creatinine 1.02 MG/DL Estimat Glomerular Filtration 73 ML/MIN Rate Calcium Level 7.6 MG/DL Date/Time Procedure Status Source Growth 12/05/16 17:02 Gram Stain - Final Resulted Wound Foot 12/05/16 17:02 Wound Culture Resulted Wound Foot Pending 12/05/16 17:02 Fungal Smear - Final Resulted Wound Foot NO FUNGAL ELEMENTS SEEN. 12/05/16 17:02 Fungal Culture Resulted Wound Foot Pending 12/05/16 17:02 Acid Fast Stain Received Wound Foot Pending 12/05/16 17:02 Mycobacterial Culture Received Wound Foot Pending 12/04/16 11:18 Aerobic Blood Culture - Preliminary Resulted Blood Peripheral NO GROWTH IN 1 DAY 12/04/16 11:18 Anaerobic Blood Culture - Preliminary Resulted Blood Peripheral NO GROWTH IN 1 DAY Physical Examination HEENT: Normocephalic; atraumatic; no jaundice. CHEST: CTA CARDIAC: Irregular ABDOMEN: Soft, nondistended, nontender; no hepatosplenomegaly; bowel sounds are present in all four quadrants. EXTREMITIES: Drsg/Splint to left foot. CHEMICAL TESTER: No focal deficits; alert and oriented times three. (Avani Barrientos) Assessment and Plan Plan ASSESSMENT: - Pancreatic lesion. Aorta w/Runoff CTA (12/04/16)----> 1. 2.5 x 1.9 cm hypodense lesion in the uncinate process of the pancreas with resultant pancreatic ductal dilatation and questionable tail atrophy. Findings are concerning for pancreatic adenocarcinoma. Consider further evaluation with endoscopic ultrasound and possible sampling. 2. Combination of inflow and outflow stenoses on the left, as above. If confirmed with angiography, patient may benefit from endovascular intervention. 3. SFA outflow and primarily runoff disease on the right, as above. Oncology following, recommends EUS with biopsy. CEA 1.4, Ca19-9 20.8. Denies any known hx of pancreatitis. He reports that he did drink heavily in the past, but stopped about 20 years ago. States weight fluctuates, but denies significant weight loss. - Left foot diabetic infection. S/P Left foot incision drainage, 2nd digit amputation, 2nd metatarsal resection (12/05/16) with Dr. Hooks. Vancomycin, Zosyn - Leukocytosis. WBC 12.1. Wound culture pending, Blood culture pending. Vancomycin, Zosyn - Anemia. No active blood loss. 10.5/32.2. - PAD. Aorta with runoff CTA (12/04/16)----> 2. Combination of inflow and outflow stenoses on the left, as above. If confirmed with angiography, patient may benefit from endovascular intervention. 3. SFA outflow and primarily runoff disease on the right, as above. Vascular surgery following, will review CTA and interim would recommend vein mapping and non-invasive arterial study. - DM, Schizophrenia, Atrial fibrillation, HTN, Hyperlipidemia per attending. PLAN: - EUS with biopsy, timing to be determined. Will need to see what vascular surgery's plans are for patient, as far timing of EUS - NPO after MN Thursday night for possible EUS Thursday - Monitor HH - AFP level - Oncology following - Podiatry following - Vascular surgery following - Supportive care - Further recommendations to follow based on results of above - Pt seen and examined by Dr. Amado and myself and this note is written on her behalf (Avani Barrientos) Physician Comments seen, examined agree with above (Janki Amado MD) Avani Barrientos Dec 06, 2016 09:54 Janki Amado MD Dec 06, 2016 18:46
--- NOTE | 2016-12-06 10:04 | PD.ONC.PN ---
Subjective Subjective Remarks Afebrile overnight. Patient resting in room in nad. Denies abdominal pain. Brother at bedside. Objective Data Date Time Temp Pulse Resp B/P Pulse Ox O2 Delivery O2 Flow Rate FiO2 12/06/16 08:00 97.7 81 20 134/69 97 12/06/16 04:00 97.8 84 20 129/72 97 12/06/16 04:00 Room Air 12/06/16 00:08 97.8 85 20 107/58 97 12/06/16 00:00 Room Air 12/05/16 21:00 84 12/05/16 20:00 Room Air 12/05/16 20:00 98.0 83 16 113/58 95 12/05/16 19:15 84 17 111/55 95 Room Air 12/05/16 19:00 85 15 116/56 95 Room Air 12/05/16 18:45 86 16 120/56 93 Room Air 12/05/16 18:30 96 17 97/54 97 Room Air 12/05/16 18:15 92 27 102/52 95 Room Air 12/05/16 18:00 97 12 115/58 97 Nasal Cannula 3 12/05/16 17:45 84 12 113/55 97 Nasal Cannula 3 12/05/16 17:30 97.6 86 12 113/55 100 Nasal Cannula 3 12/05/16 12:00 98.8 90 20 118/62 99 12/06/16 12/06/16 12/06/16 07:00 15:00 23:00 Intake Total 1249 ml Output Total 325 ml Balance 924 ml Result Diagram: 12/06/16 0451 12/06/16 0451 Laboratory Results Laboratory Tests Test 12/05/16 12/05/16 12/06/16 17:50 20:20 04:51 Random Glucose 45 MG/DL 125 MG/DL Carcinoembryonic Antigen 1.4 NG/ML CA 19-9 Antigen 20.8 U/ML White Blood Count 12.1 TH/MM3 Red Blood Count 3.32 MIL/MM3 Hemoglobin 10.5 GM/DL Hematocrit 32.2 % Mean Corpuscular Volume 96.8 FL Mean Corpuscular Hemoglobin 31.7 PG Mean Corpuscular Hemoglobin 32.7 % Concent Red Cell Distribution Width 13.6 % Platelet Count 185 TH/MM3 Mean Platelet Volume 8.1 FL Neutrophils (%) (Auto) 89.0 % Lymphocytes (%) (Auto) 4.7 % Monocytes (%) (Auto) 5.5 % Eosinophils (%) (Auto) 0.0 % Basophils (%) (Auto) 0.8 % Neutrophils # (Auto) 10.7 TH/MM3 Lymphocytes # (Auto) 0.6 TH/MM3 Monocytes # (Auto) 0.7 TH/MM3 Eosinophils # (Auto) 0.0 TH/MM3 Basophils # (Auto) 0.1 TH/MM3 CBC Comment DIFF FINAL Differential Comment Sodium Level 137 MEQ/L Potassium Level 3.7 MEQ/L Chloride Level 105 MEQ/L Carbon Dioxide Level 24.0 MEQ/L Anion Gap 8 MEQ/L Blood Urea Nitrogen 18 MG/DL Creatinine 1.02 MG/DL Estimat Glomerular Filtration 73 ML/MIN Rate Calcium Level 7.6 MG/DL Culture Results Microbiology Date/Time Procedure Status Source Growth 12/04/16 11:00 Gram Stain - Final Resulted Wound Foot 12/04/16 11:00 Wound Culture - Preliminary Resulted Wound Foot 12/04/16 11:08 Aerobic Blood Culture - Preliminary Resulted Blood Peripheral NO GROWTH IN 1 DAY 12/04/16 11:08 Anaerobic Blood Culture - Preliminary Resulted Blood Peripheral NO GROWTH IN 1 DAY 12/04/16 11:18 Aerobic Blood Culture - Preliminary Resulted Blood Peripheral NO GROWTH IN 1 DAY 12/04/16 11:18 Anaerobic Blood Culture - Preliminary Resulted Blood Peripheral NO GROWTH IN 1 DAY 12/05/16 17:02 Gram Stain - Final Resulted Wound Foot 12/05/16 17:02 Wound Culture Resulted Wound Foot Pending 12/05/16 17:02 Acid Fast Stain Received Wound Foot Pending 12/05/16 17:02 Mycobacterial Culture Received Wound Foot Pending 12/05/16 17:02 Fungal Smear - Final Resulted Wound Foot NO FUNGAL ELEMENTS SEEN. 12/05/16 17:02 Fungal Culture Resulted Wound Foot Pending Administered Medications Medications (Trade) Dose Ordered Sig/Brad Route PRN Reason Start Time Stop Time Status Last Admin Dose Admin Sodium Chloride (NS Flush) 2 ml BID IV FLUSH 12/04/16 21:00 12/06/16 08:07 Senna/Docusate Sodium 1 tab 1 tab BID PO 12/04/16 21:00 12/06/16 09:38 Piperacillin Sod/ Tazobactam Sod 50 ml @ 100 mls/hr Q6H IV 12/04/16 20:00 12/06/16 08:04 Sodium Chloride (NS 1000 ml Inj) 1,000 ml @ 84 mls/hr [id number] IV 12/04/16 13:30 12/05/16 13:24 Atorvastatin Calcium (Lipitor) 20 mg HS PO 12/04/16 21:00 12/05/16 20:21 Metoprolol Succinate (Toprol Xl) 100 mg DAILY PO 12/05/16 09:00 12/06/16 09:37 Insulin Detemir 10 units 10 units HS SQ 12/05/16 21:00 12/05/16 20:20 Vancomycin HCl/ Sodium Chloride (Vancomycin Inj/ NS 250 ml Inj) 262 ml @ 250 mls/hr Q18H IV 12/05/16 06:00 12/06/16 00:04 Acetaminophen/ Hydrocodone Bitart ([place] 10-325 Mg) 1 tab Q4H PRN PO Pain 6-10 12/04/16 20:15 12/04/16 20:37 Objective Remarks GENERAL: Middle aged male sitting up on side of bed in nad. SKIN: Warm and dry. left foot in clean dressings. HEAD: Normocephalic. EYES:No injection or drainage. NECK: Supple, trachea midline. CARDIOVASCULAR: +S1/S2 RESPIRATORY: Breath sounds equal bilaterally. No accessory muscle use. GASTROINTESTINAL: Abdomen soft, non-tender, nondistended. EXTREMITIES: No cyanosis NEUROLOGICAL: awake and alert, normal speech Assessment/Plan Problem List: (1) Pancreatic mass Status: Acute Plan: 12/06: await EUS, possibly Thursday. --CTA-- Incidentally showed a 2.5 x 1.9 cm hypodense lesion in the uncinate process of the pancreas with the resultant pancreatic ductal dilatation and questionable tail atrophy. Findings are concerning for pancreatic adenocarcinoma. --CEA and CA 19-9 WNL GI consulted for EUS for tissue diagnosis Assessment 66y/o male with pancreatic mass, initially admitted with diabetic foot ulcer, now s/p amputation left second toe. history of schizophrenia, hypertension, diabetes mellitus, atrial fibrillation and hypercholesterolemia. Attending Statement I feel better My leg does not hurt anymore Tumor markers are normal EUS Next week The exam, history, and the medical decision-making described in the above note were completed with the assistance of the mid-level provider. I reviewed and agree with the findings presented. I attest that I had a [id number] encounter with the patient on the same day, and personally performed and documented my assessment and findings in the medical record. Piryanka Rojas Dec 06, 2016 10:04 Angeline Blanchard MD Dec 07, 2016 00:12
--- NOTE | 2016-12-06 11:06 | PD.VS.PN ---
Subjective Subjective/Hospital Course status post left 2nd toe and MT amp with drainage of abscess for DF wound. Objective Vitals/I&O Date Time Temp Pulse Resp B/P Pulse Ox O2 Delivery O2 Flow Rate FiO2 12/06/16 08:00 97.7 81 20 134/69 97 12/06/16 04:00 97.8 84 20 129/72 97 12/06/16 04:00 Room Air 12/06/16 00:08 97.8 85 20 107/58 97 12/06/16 00:00 Room Air 12/05/16 21:00 84 12/05/16 20:00 Room Air 12/05/16 20:00 98.0 83 16 113/58 95 12/05/16 19:15 84 17 111/55 95 Room Air 12/05/16 19:00 85 15 116/56 95 Room Air 12/05/16 18:45 86 16 120/56 93 Room Air 12/05/16 18:30 96 17 97/54 97 Room Air 12/05/16 18:15 92 27 102/52 95 Room Air 12/05/16 18:00 97 12 115/58 97 Nasal Cannula 3 12/05/16 17:45 84 12 113/55 97 Nasal Cannula 3 12/05/16 17:30 97.6 86 12 113/55 100 Nasal Cannula 3 12/05/16 12:00 98.8 90 20 118/62 99 12/06/16 12/06/16 12/06/16 07:00 15:00 23:00 Intake Total 1249 ml Output Total 325 ml Balance 924 ml Physical Exam Dressing in place left foot. Laboratory Laboratory Tests Test 12/05/16 12/05/16 12/06/16 17:50 20:20 04:51 Random Glucose 45 125 Carcinoembryonic Antigen 1.4 CA 19-9 Antigen 20.8 White Blood Count 12.1 Red Blood Count 3.32 Hemoglobin 10.5 Hematocrit 32.2 Mean Corpuscular Volume 96.8 Mean Corpuscular Hemoglobin 31.7 Mean Corpuscular Hemoglobin 32.7 Concent Red Cell Distribution Width 13.6 Platelet Count 185 Mean Platelet Volume 8.1 Neutrophils (%) (Auto) 89.0 Lymphocytes (%) (Auto) 4.7 Monocytes (%) (Auto) 5.5 Eosinophils (%) (Auto) 0.0 Basophils (%) (Auto) 0.8 Neutrophils # (Auto) 10.7 Lymphocytes # (Auto) 0.6 Monocytes # (Auto) 0.7 Eosinophils # (Auto) 0.0 Basophils # (Auto) 0.1 CBC Comment DIFF FINAL Differential Comment Sodium Level 137 Potassium Level 3.7 Chloride Level 105 Carbon Dioxide Level 24.0 Anion Gap 8 Blood Urea Nitrogen 18 Creatinine 1.02 Estimat Glomerular Filtration 73 Rate Calcium Level 7.6 Date/Time Procedure Status Source Growth 12/05/16 17:02 Gram Stain - Final Resulted Wound Foot 12/05/16 17:02 Wound Culture Resulted Wound Foot Pending 12/05/16 17:02 Fungal Smear - Final Resulted Wound Foot NO FUNGAL ELEMENTS SEEN. 12/05/16 17:02 Fungal Culture Resulted Wound Foot Pending 12/05/16 17:02 Acid Fast Stain Received Wound Foot Pending 12/05/16 17:02 Mycobacterial Culture Received Wound Foot Pending 12/04/16 11:18 Aerobic Blood Culture - Preliminary Resulted Blood Peripheral NO GROWTH IN 1 DAY 12/04/16 11:18 Anaerobic Blood Culture - Preliminary Resulted Blood Peripheral NO GROWTH IN 1 DAY Imaging Last 48 hours Impressions Lower Extremity Ultrasound 12/05/16 0000 Signed Impressions: Service Date/Time: Monday, December 05, 2016 23:02 - CONCLUSION: No evidence of left leg DVT. 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 This could be confirmed with knee MRI if clinically indicated Fabio Mulligan MD Lower Extremity Ultrasound 12/05/16 0000 Signed Impressions: Service Date/Time: Monday, December 05, 2016 23:14 - CONCLUSION: Patent left greater saphenous vein Fabio Mulligan MD Foot X-Ray 12/04/16 1129 Signed Impressions: Service Date/Time: November 11:31 - CONCLUSION: Unremarkable examination of the left foot except for soft tissue air and inflammation in the plantar aspect overlying the second toe and second MTP joint. Joseph Zapata MD Assessment and Plan Assessment: (1) Diabetic foot infection Status: Acute Plan 66 year old male with hx of PAD and DM with diabetic foot infection with air tracking in SQ tissue. Patient will have surgical management of foot by podiatry. Patient with palpable pulses in the groin with signals distally. left iliac and left SFA may have flow limiting lesions. Plan for angiogram with possible intervention early next week. Ti Joaquin DO Dec 06, 2016 11:06
[2016-12-06 11:53] VITALS: BP 135/76; PULSE 82; RESP 20; TEMP 97.3; O2SAT 100
--- NOTE | 2016-12-06 12:18 | RADRPT ---
EXAM DATE/TIME: 12/05/2016 00:00 [facility] COMPARISON: No previous studies available for comparison. INDICATIONS : Diabetic Left Foot wound TECHNIQUE: Five-station segmental examination of the lower extremities was performed. Pulsed-cuff waveform tracings and pressures were recorded. Ankle-brachial indices and toe-brachial indices were calculated. PRESSURES (mmHg): Brachial (arm): Left 131 Lower Thigh: Right 118 Left CNO >220 Calf: Right 160 Left 199 Ankle: Right 92 Left 172 Toe: Right 78 Left N/A HERVE: Right 0.70 Left 1.31 TBI: Right 0.60 Left N/A CONCLUSION: There is vascular occlusive disease on the right discussed in detail on the patient's prior CT angiog dyan and run off. Kiki Marrufo MD on December 06, 2016 at 12:16 Board Certified Radiologist. This report was verified electronically.
--- NOTE | 2016-12-06 12:30 | PD.POD ---
Subjective Pain score: 2 Remarks Left foot feels ok, not too much pain Past Med/Surg/Social History Social History Smoking Status: Never Smoker Objective Vital Signs Vital Signs Date Time Temp Pulse Resp B/P Pulse Ox O2 Delivery O2 Flow Rate FiO2 12/06/16 11:53 97.3 82 20 135/76 100 12/06/16 08:00 97.7 81 20 134/69 97 12/06/16 04:00 97.8 84 20 129/72 97 12/06/16 04:00 Room Air 12/06/16 00:08 97.8 85 20 107/58 97 12/06/16 00:00 Room Air 12/05/16 21:00 84 12/05/16 20:00 Room Air 12/05/16 20:00 98.0 83 16 113/58 95 12/05/16 19:15 84 17 111/55 95 Room Air 12/05/16 19:00 85 15 116/56 95 Room Air 12/05/16 18:45 86 16 120/56 93 Room Air 12/05/16 18:30 96 17 97/54 97 Room Air 12/05/16 18:15 92 27 102/52 95 Room Air 12/05/16 18:00 97 12 115/58 97 Nasal Cannula 3 12/05/16 17:45 84 12 113/55 97 Nasal Cannula 3 12/05/16 17:30 97.6 86 12 113/55 100 Nasal Cannula 3 Coded Allergies: MRI PRECAUTION (Verified Adverse Reaction, Severe, 12/04/16) PATIENT HAS A MEDTRONIC ADAPTA SR NON COMPATIBLE PACEMAKER EG 12/04/2016. Medications and IVs Administered Medications Medications (Trade) Dose Ordered Sig/Brad Route PRN Reason Start Time Stop Time Status Last Admin Dose Admin Sodium Chloride (NS Flush) 2 ml BID IV FLUSH 12/04/16 21:00 12/06/16 08:07 Senna/Docusate Sodium 1 tab 1 tab BID PO 12/04/16 21:00 12/06/16 09:38 Piperacillin Sod/ Tazobactam Sod 50 ml @ 100 mls/hr Q6H IV 12/04/16 20:00 12/06/16 08:04 Sodium Chloride (NS 1000 ml Inj) 1,000 ml @ 84 mls/hr [id number] IV 12/04/16 13:30 12/05/16 13:24 Atorvastatin Calcium (Lipitor) 20 mg HS PO 12/04/16 21:00 12/05/16 20:21 Metoprolol Succinate (Toprol Xl) 100 mg DAILY PO 12/05/16 09:00 12/06/16 09:37 Insulin Detemir 10 units 10 units HS SQ 12/05/16 21:00 12/05/16 20:20 Vancomycin HCl/ Sodium Chloride (Vancomycin Inj/ NS 250 ml Inj) 262 ml @ 250 mls/hr Q18H IV 12/05/16 06:00 12/06/16 00:04 Acetaminophen/ Hydrocodone Bitart ([place] 10-325 Mg) 1 tab Q4H PRN PO Pain 6-10 12/04/16 20:15 12/04/16 20:37 Other Results Laboratory Tests Test 12/05/16 12/06/16 08:39 04:51 White Blood Count 14.1 TH/MM3 12.1 TH/MM3 Red Blood Count 3.21 MIL/MM3 3.32 MIL/MM3 Hemoglobin 10.3 GM/DL 10.5 GM/DL Hematocrit 30.8 % 32.2 % Mean Corpuscular Volume 95.9 FL 96.8 FL Mean Corpuscular Hemoglobin 32.0 PG 31.7 PG Mean Corpuscular Hemoglobin 33.4 % 32.7 % Concent Red Cell Distribution Width 13.6 % 13.6 % Platelet Count 179 TH/MM3 185 TH/MM3 Mean Platelet Volume 8.9 FL 8.1 FL Neutrophils (%) (Auto) 83.4 % 89.0 % Lymphocytes (%) (Auto) 5.5 % 4.7 % Monocytes (%) (Auto) 10.3 % 5.5 % Eosinophils (%) (Auto) 0.2 % 0.0 % Basophils (%) (Auto) 0.6 % 0.8 % Neutrophils # (Auto) 11.8 TH/MM3 10.7 TH/MM3 Lymphocytes # (Auto) 0.8 TH/MM3 0.6 TH/MM3 Monocytes # (Auto) 1.5 TH/MM3 0.7 TH/MM3 Eosinophils # (Auto) 0.0 TH/MM3 0.0 TH/MM3 Basophils # (Auto) 0.1 TH/MM3 0.1 TH/MM3 CBC Comment DIFF FINAL DIFF FINAL Differential Comment Laboratory Tests Test 7/20/12/05/16 12/05/16 12/05/16 22:36 08:39 17:50 20:20 Lactic Acid Level 0.7 mmol/L Sodium Level 137 MEQ/L Potassium Level 3.3 MEQ/L Chloride Level 104 MEQ/L Carbon Dioxide Level 21.0 MEQ/L Anion Gap 12 MEQ/L Blood Urea Nitrogen 18 MG/DL Creatinine 0.88 MG/DL Estimat Glomerular Filtration 87 ML/MIN Rate Random Glucose 42 MG/DL 45 MG/DL Calcium Level 8.0 MG/DL Carcinoembryonic Antigen 1.4 NG/ML CA 19-9 Antigen 20.8 U/ML Test 12/06/16 04:51 Sodium Level 137 MEQ/L Potassium Level 3.7 MEQ/L Chloride Level 105 MEQ/L Carbon Dioxide Level 24.0 MEQ/L Anion Gap 8 MEQ/L Blood Urea Nitrogen 18 MG/DL Creatinine 1.02 MG/DL Estimat Glomerular Filtration 73 ML/MIN Rate Random Glucose 125 MG/DL Calcium Level 7.6 MG/DL Microbiology Date/Time Procedure Status Source Growth 12/04/16 11:00 Gram Stain - Final Resulted Wound Foot 12/04/16 11:00 Wound Culture - Preliminary Resulted Wound Foot 12/04/16 11:08 Aerobic Blood Culture - Preliminary Resulted Blood Peripheral NO GROWTH IN 2 DAYS 12/04/16 11:08 Anaerobic Blood Culture - Preliminary Resulted Blood Peripheral NO GROWTH IN 2 DAYS 12/04/16 11:18 Aerobic Blood Culture - Preliminary Resulted Blood Peripheral NO GROWTH IN 2 DAYS 12/04/16 11:18 Anaerobic Blood Culture - Preliminary Resulted Blood Peripheral NO GROWTH IN 2 DAYS 12/05/16 17:02 Gram Stain - Final Resulted Wound Foot 12/05/16 17:02 Wound Culture Resulted Wound Foot Pending 12/05/16 17:02 Acid Fast Stain Received Wound Foot Pending 12/05/16 17:02 Mycobacterial Culture Received Wound Foot Pending 12/05/16 17:02 Fungal Smear - Final Resulted Wound Foot NO FUNGAL ELEMENTS SEEN. 12/05/16 17:02 Fungal Culture Resulted Wound Foot Pending Physical Exam Remarks Left LE: Bandage intact, no strikethru good CFT to digits 1 3 4 5, sensation decreased to light touch, no ascending redness beyond foot. Assessment & Plan A/P Left foot DM infection gangrene 2nd digit. SP 2nd digit amputation and resection of 2nd metatarsal- 12-05 Patient appears to be improving, will monitor wound healing, bandage to be changed tomorrow. Appreciate Vascular rec's. FU 1 days Hakan Driscoll DPM Dec 06, 2016 12:30
[2016-12-06 15:22] VITALS: BP 134/67; PULSE 86; RESP 20; TEMP 98.8; O2SAT 97
--- NOTE | 2016-12-06 15:50 | HHI.PR ---
Subjective Remarks Patient feels okay. Denies any chest pain, shortness of breath, nausea or vomiting. Currently denies any foot pain. No other complaints Objective Vitals Vital Signs Date Time Temp Pulse Resp B/P Pulse Ox O2 Delivery O2 Flow Rate FiO2 12/06/16 15:22 98.8 86 20 134/67 97 12/06/16 11:53 97.3 82 20 135/76 100 12/06/16 08:00 97.7 81 20 134/69 97 12/06/16 08:00 96 Room Air 12/06/16 08:00 77 12/06/16 04:00 97.8 84 20 129/72 97 12/06/16 04:00 Room Air 12/06/16 00:08 97.8 85 20 107/58 97 12/06/16 00:00 Room Air 12/05/16 21:00 84 12/05/16 20:00 Room Air 12/05/16 20:00 98.0 83 16 113/58 95 12/05/16 19:15 84 17 111/55 95 Room Air 12/05/16 19:00 85 15 116/56 95 Room Air 12/05/16 18:45 86 16 120/56 93 Room Air 12/05/16 18:30 96 17 97/54 97 Room Air 12/05/16 18:15 92 27 102/52 95 Room Air 12/05/16 18:00 97 12 115/58 97 Nasal Cannula 3 12/05/16 17:45 84 12 113/55 97 Nasal Cannula 3 12/05/16 17:30 97.6 86 12 113/55 100 Nasal Cannula 3 I/O 12/05/16 12/05/16 12/05/16 12/06/16 12/06/16 12/06/16 07:00 15:00 23:00 07:00 15:00 23:00 Intake Total 441 ml 751 ml 860 ml 1249 ml 360 ml 360 ml Output Total 1200 ml 400 ml 110 ml 325 ml 300 ml Balance -759 ml 351 ml 750 ml 924 ml 360 ml 60 ml Intake Oral 0 ml 0 ml 360 ml 360 ml 360 ml 360 ml IV Total 441 ml 751 ml 889 ml Other 500 ml Output Urine Total 1200 ml 400 ml 100 ml 325 ml 300 ml Estimated Blood Loss 10 ml # Voids 2 2 1 # Bowel Movements 0 1 0 0 1 Result Diagram: 7/22/17 0451 12/06/16 0451 Imaging Last Impressions Lower Extremity Ultrasound 12/05/16 0000 Signed Impressions: Service Date/Time: Monday, December 05, 2016 23:02 - CONCLUSION: No evidence of left leg DVT. 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 This could be confirmed with knee MRI if clinically indicated Fabio Mulligan MD Foot X-Ray 12/04/16 1129 Signed Impressions: Service Date/Time: November 11:31 - CONCLUSION: Unremarkable examination of the left foot except for soft tissue air and inflammation in the plantar aspect overlying the second toe and second MTP joint. Joseph Zapata MD Lower Extremity CT 12/04/16 0000 Signed Impressions: Service Date/Time: November 14:26 - CONCLUSION: Significant soft tissue air around the second toe and second MTP joint. I do not see a drainable fluid collection or obvious abscess. There is no underlying bone fracture or foreign body. There is a soft tissue ulcer with some debris. No foreign body is seen. Joseph Zapata MD Aorta w/Runoff CTA 12/04/16 0000 Signed Impressions: Service Date/Time: November 14:26 - CONCLUSION: 1. 2.5 x 1.9 cm hypodense lesion in the uncinate process of the pancreas with resultant pancreatic ductal dilatation and questionable tail atrophy. Findings are concerning for pancreatic adenocarcinoma. Consider further evaluation with endoscopic ultrasound and possible sampling. 2. Combination of inflow and outflow stenoses on the left, as above. If confirmed with angiography, patient may benefit from endovascular intervention. 3. SFA outflow and primarily runoff disease on the right, as above. Ross Sarkar MD Objective Remarks GENERAL: Laying in bed Eyes: Extraocular motion intact CARDIAC: Regular rhythm, regular rate. No murmurs gallops. LUNGS: Clear to auscultation bilaterally. No wheeze. No use of accessory muscles on inspiration or expiration. ABDOMEN: Soft, nontender. Nondistended. EXTREMITIES: No edema, dressing over her left lower extremity NEUROLOGY: Quiet and not very talkative but answers questions. Cranial nerves II through XII grossly intact. Moves extremities with no difficulty. A/P Problem List: (1) Severe sepsis ICD Code: A41.9 Status: Acute (2) Leucocytosis ICD Code: D72.829 Status: Acute (3) Diabetic foot infection ICD Code: E11.69 Status: Acute (4) Diabetes ICD Code: E11.9 Status: Acute (5) Hypertension ICD Code: I10 Status: Acute (6) Hyperlipidemia ICD Code: E78.5 Status: Acute (7) Atrial fibrillation ICD Code: I48.91 Status: Acute Assessment and Plan Severe sepsis Patient is criteria on admission with leukocytosis, tachycardia, left diabetic foot wound, hypotension Continue to follow blood cultures so far negative to date. And wound cultures shows mixed anaerobes. Repeat wound cultures pending on vancomycin and Zosyn Continue IV fluids to maintain blood pressure Left foot diabetic wound Left foot DM infection gangrene 2nd digit. Podiatry following. S/P 2nd digit amputation and resection of 2nd metatarsal- , dressing change tomorrow. Vascular surgery also following. Plan for angiogram with possible intervention early next week. Leukocytosis Secondary to sepsis Continue to follow CBC Possible pancreatic adenocarcinoma per imaging . CT reviewed. Oncology and GI following. NPO after MN Thursday night for possible EUS Thursday Diabetes mellitus type 2, uncontrolled A1c 10.6 Accu-Cheks with sliding scale insulin hemoglobin A1c 10.6 this admission BMP reviewed, with low glucose however leg likely lab error. Patient asymptomatic. He is on insulin sliding scale with hypoglycemia protocol Hypertension Resume blood pressure medications when blood pressure improved and patient no longer septic Hyperlipidemia Check lipid panel Resume Statin Chronic atrial fibrillation Patient with tachycardia presentation, however heart rate improved at this time Resume medications when blood pressure stabilized DVT prevention -Sequential compression devices Code Status Full code Discussed Condition With patient, nurse Discharge pending improvement. Patient is followed by podiatry, vascular surgeon. Also consulted hematology oncology consult CT scan there is pancreatic mass concerning for adenocarcinoma. Discharge Planning Dressing change of left foot tomorrow. NPO after MN Thursday for possible EUS Thursday vascular sx also planning on performing an angiogram with possible intervention early next week Problem Qualifiers (1) Diabetes: Qualified Code: E11.621 - Type 2 diabetes mellitus with foot ulcer, with long- term current use of insulin (2) Hypertension: Qualified Code: I10 - Hypertension, unspecified type (3) Hyperlipidemia: Qualified Code: E78.5 - Hyperlipidemia, unspecified hyperlipidemia type (4) Atrial fibrillation: Qualified Code: I48.91 - Atrial fibrillation, unspecified type Jaquelin Sears MD Dec 06, 2016 15:50
[2016-12-06 20:00] VITALS: BP 166/68; PULSE 102; PULSE 84; RESP 20; TEMP 98.4; O2SAT 96
[2016-12-06] MEDS: INSULIN DETEMIR 100 UNITS/ML VIAL SQ SCH (21:00)
[2016-12-06] MEDS: ATORVASTATIN 20 MG TAB PO SCH (21:16)
[2016-12-07] VITALS: BP 139/66; PULSE 83; RESP 17; TEMP 98.9; O2SAT 100
[2016-12-07] MEDS: PIPERACIL-TAZO 3.375 GM PREMIX 50 ML IV SCH ×4 (02:10→20:29)
[2016-12-07 04:00] VITALS: BP 131/61; PULSE 87; RESP 17; TEMP 98; O2SAT 96
[2016-12-07] MEDS: INSULIN ASPART SUPPLEMENTAL SCALE SQ SCH ×4 (06:25→20:30)
[2016-12-07 08:00] VITALS: BP 143/67; PULSE 83; PULSE 86; RESP 18; TEMP 97.7; O2SAT 97
[2016-12-07] MEDS: DOCUSATE SODIUM 50 MG/SENNA 8.6 MG TAB PO SCH ×2 (09:00→20:30)
[2016-12-07] MEDS: METOPROLOL SUCCINATE 50 MG EXTENDED RELEASE TAB PO SCH (09:01)
[2016-12-07] MEDS: SODIUM CHLORIDE 0.9% FLUSH 10 ML FLUSH IV FLUSH SCH ×2 (09:09→20:29)
--- NOTE | 2016-12-07 10:42 | PD.VS.PN ---
Subjective Subjective/Hospital Course status post left 2nd toe and MT amp with drainage of abscess for DF wound. Objective Vitals/I&O Date Time Temp Pulse Resp B/P Pulse Ox O2 Delivery O2 Flow Rate FiO2 12/07/16 08:00 97.7 83 18 143/67 97 12/07/16 04:00 98.0 87 17 131/61 96 12/07/16 00:00 98.9 83 17 139/66 100 12/06/16 20:00 98.4 102 20 166/68 96 12/06/16 20:00 84 12/06/16 20:00 Room Air 12/06/16 15:22 98.8 86 20 134/67 97 12/06/16 11:53 97.3 82 20 135/76 100 12/07/16 12/07/16 12/07/16 07:00 15:00 23:00 Intake Total 220 ml Output Total 600 ml Balance -380 ml Pulses: left foot wound dressed with kerlex Laboratory Laboratory Tests Test 12/06/16 12/07/16 15:17 05:20 Tumor Marker Alpha Fetoprotein 0.9 Creatinine 0.89 Estimat Glomerular Filtration 86 Rate Date/Time Procedure Status Source Growth 12/05/16 17:02 Gram Stain - Final Resulted Wound Foot 12/05/16 17:02 Wound Culture - Preliminary Resulted Wound Foot 12/05/16 17:02 Fungal Smear - Final Resulted Wound Foot NO FUNGAL ELEMENTS SEEN. 12/05/16 17:02 Fungal Culture Resulted Wound Foot Pending 12/05/16 17:02 Acid Fast Stain Received Wound Foot Pending 12/05/16 17:02 Mycobacterial Culture Received Wound Foot Pending 12/04/16 11:18 Aerobic Blood Culture - Preliminary Resulted Blood Peripheral NO GROWTH IN 2 DAYS 12/04/16 11:18 Anaerobic Blood Culture - Preliminary Resulted Blood Peripheral NO GROWTH IN 2 DAYS Assessment and Plan Assessment: (1) Diabetic foot infection Status: Acute Plan 66 year old male with hx of PAD and DM with diabetic foot infection with air tracking in SQ tissue. Status post surgical treatment for foot infection by Dr. Paredes. Plan for angio thursday. Ti Joaquin DO Dec 07, 2016 10:42
[2016-12-07] MEDS ORDERED: PHARMACY ORDERED LAB ONE (11:45)
[2016-12-07] MEDS: VANCOMYCIN INJ 1,200 MG in SODIUM CHLOR 0.9% 250 ML INJ 250 ML IV SCH (11:50)
--- NOTE | 2016-12-07 11:51 | PD.ONC.PN ---
Subjective Subjective Remarks Afebrile overnight. Resting in bed in nad. brother at bedside. no complaints. Objective Data Date Time Temp Pulse Resp B/P Pulse Ox O2 Delivery O2 Flow Rate FiO2 12/07/16 08:00 97.7 83 18 143/67 97 12/07/16 04:00 98.0 87 17 131/61 96 12/07/16 00:00 98.9 83 17 139/66 100 12/06/16 20:00 98.4 102 20 166/68 96 12/06/16 20:00 84 12/06/16 20:00 Room Air 12/06/16 15:22 98.8 86 20 134/67 97 12/06/16 11:53 97.3 82 20 135/76 100 12/07/16 12/07/16 12/07/16 07:00 15:00 23:00 Intake Total 220 ml Output Total 600 ml Balance -380 ml Result Diagram: 12/06/16 0451 12/07/16 0520 Laboratory Results Laboratory Tests Test 12/06/16 12/07/16 15:17 05:20 Tumor Marker Alpha Fetoprotein 0.9 NG/ML Creatinine 0.89 MG/DL Estimat Glomerular Filtration 86 ML/MIN Rate Culture Results Microbiology Date/Time Procedure Status Source Growth 12/05/16 17:02 Gram Stain - Final Resulted Wound Foot 12/05/16 17:02 Wound Culture - Preliminary Resulted Wound Foot 12/05/16 17:02 Acid Fast Stain - Final Resulted Wound Foot NO ACID FAST BACILLI SEEN 12/05/16 17:02 Mycobacterial Culture Resulted Wound Foot Pending 12/05/16 17:02 Fungal Smear - Final Resulted Wound Foot NO FUNGAL ELEMENTS SEEN. 12/05/16 17:02 Fungal Culture Resulted Wound Foot Pending Administered Medications Medications (Trade) Dose Ordered Sig/Brad Route PRN Reason Start Time Stop Time Status Last Admin Dose Admin Sodium Chloride (NS Flush) 2 ml BID IV FLUSH 12/04/16 21:00 12/07/16 09:09 Senna/Docusate Sodium 1 tab 1 tab BID PO 12/04/16 21:00 12/07/16 09:00 Piperacillin Sod/ Tazobactam Sod 50 ml @ 100 mls/hr Q6H IV 12/04/16 20:00 12/07/16 09:01 Sodium Chloride (NS 1000 ml Inj) 1,000 ml @ 84 mls/hr [id number] IV 12/04/16 13:30 12/06/16 21:50 Atorvastatin Calcium (Lipitor) 20 mg HS PO 12/04/16 21:00 12/06/16 21:16 Metoprolol Succinate (Toprol Xl) 100 mg DAILY PO 12/05/16 09:00 12/07/16 09:01 Insulin Detemir 10 units 10 units HS SQ 12/05/16 21:00 12/05/16 20:20 Vancomycin HCl/ Sodium Chloride (Vancomycin Inj/ NS 250 ml Inj) 262 ml @ 250 mls/hr Q18H IV 12/05/16 06:00 12/06/16 17:45 Acetaminophen/ Hydrocodone Bitart ([place] 10-325 Mg) 1 tab Q4H PRN PO Pain 6-10 12/04/16 20:15 12/04/16 20:37 Objective Remarks GENERAL: Middle aged male upright in bed in nad. SKIN: Warm and dry. HEAD: Normocephalic. EYES:No injection or drainage. NECK: Supple, trachea midline. CARDIOVASCULAR: +S1/S2 RESPIRATORY: Breath sounds equal bilaterally. No accessory muscle use. GASTROINTESTINAL: Abdomen soft, non-tender, nondistended. EXTREMITIES: No cyanosis. left foot with bandages in place. NEUROLOGICAL: awake and alert, normal speech Assessment/Plan Problem List: (1) Pancreatic mass Status: Acute Plan: 12/07: EUS when cleared by vascular surgery. EUS could be done outpatient. fs faxed to new patient referrals. --CTA-- Incidentally showed a 2.5 x 1.9 cm hypodense lesion in the uncinate process of the pancreas with the resultant pancreatic ductal dilatation and questionable tail atrophy. Findings are concerning for pancreatic adenocarcinoma. --CEA and CA 19-9 WNL GI consulted for EUS for tissue diagnosis Assessment 66y/o male with pancreatic mass, initially admitted with diabetic foot ulcer, now s/p amputation left second toe. history of schizophrenia, hypertension, diabetes mellitus, atrial fibrillation and hypercholesterolemia. Attending Statement Feels better Wants to go home GI to follow for the EUS Biopsy of the pancreatic mass The exam, history, and the medical decision-making described in the above note were completed with the assistance of the mid-level provider. I reviewed and agree with the findings presented. I attest that I had a [id number] encounter with the patient on the same day, and personally performed and documented my assessment and findings in the medical record. Priyanka Rojas Dec 07, 2016 11:51 Angeline Blanchard MD Dec 07, 2016 22:39
[2016-12-07 12:00] VITALS: BP 163/79; PULSE 86; RESP 18; TEMP 98; O2SAT 96
--- NOTE | 2016-12-07 12:30 | PD.POD ---
Subjective Pain score: 2 Remarks Left foot feels ok, not too much pain Past Med/Surg/Social History Social History Smoking Status: Never Smoker Objective Vital Signs Vital Signs Date Time Temp Pulse Resp B/P Pulse Ox O2 Delivery O2 Flow Rate FiO2 12/07/16 08:00 97.7 83 18 143/67 97 12/07/16 04:00 98.0 87 17 131/61 96 12/07/16 00:00 98.9 83 17 139/66 100 12/06/16 20:00 98.4 102 20 166/68 96 12/06/16 20:00 84 12/06/16 20:00 Room Air 12/06/16 15:22 98.8 86 20 134/67 97 Coded Allergies: MRI PRECAUTION (Verified Adverse Reaction, Severe, 12/04/16) PATIENT HAS A MEDTRONIC ADAPTA SR NON COMPATIBLE PACEMAKER EG 12/04/2016. Medications and IVs Administered Medications Medications (Trade) Dose Ordered Sig/Brad Route PRN Reason Start Time Stop Time Status Last Admin Dose Admin Sodium Chloride (NS Flush) 2 ml BID IV FLUSH 12/04/16 21:00 12/07/16 09:09 Senna/Docusate Sodium 1 tab 1 tab BID PO 12/04/16 21:00 12/07/16 09:00 Piperacillin Sod/ Tazobactam Sod 50 ml @ 100 mls/hr Q6H IV 12/04/16 20:00 12/07/16 09:01 Sodium Chloride (NS 1000 ml Inj) 1,000 ml @ 84 mls/hr [id number] IV 12/04/16 13:30 12/06/16 21:50 Atorvastatin Calcium (Lipitor) 20 mg HS PO 12/04/16 21:00 12/06/16 21:16 Metoprolol Succinate (Toprol Xl) 100 mg DAILY PO 12/05/16 09:00 12/07/16 09:01 Insulin Detemir 10 units 10 units HS SQ 12/05/16 21:00 12/05/16 20:20 Vancomycin HCl/ Sodium Chloride (Vancomycin Inj/ NS 250 ml Inj) 262 ml @ 250 mls/hr Q18H IV 12/05/16 06:00 12/07/16 11:50 Acetaminophen/ Hydrocodone Bitart ([place] 10-325 Mg) 1 tab Q4H PRN PO Pain 6-10 12/04/16 20:15 12/04/16 20:37 Other Results Laboratory Tests Test 12/06/16 04:51 White Blood Count 12.1 TH/MM3 Red Blood Count 3.32 MIL/MM3 Hemoglobin 10.5 GM/DL Hematocrit 32.2 % Mean Corpuscular Volume 96.8 FL Mean Corpuscular Hemoglobin 31.7 PG Mean Corpuscular Hemoglobin 32.7 % Concent Red Cell Distribution Width 13.6 % Platelet Count 185 TH/MM3 Mean Platelet Volume 8.1 FL Neutrophils (%) (Auto) 89.0 % Lymphocytes (%) (Auto) 4.7 % Monocytes (%) (Auto) 5.5 % Eosinophils (%) (Auto) 0.0 % Basophils (%) (Auto) 0.8 % Neutrophils # (Auto) 10.7 TH/MM3 Lymphocytes # (Auto) 0.6 TH/MM3 Monocytes # (Auto) 0.7 TH/MM3 Eosinophils # (Auto) 0.0 TH/MM3 Basophils # (Auto) 0.1 TH/MM3 CBC Comment DIFF FINAL Differential Comment Laboratory Tests Test 12/05/16 12/05/16 12/06/16 12/06/16 17:50 20:20 04:51 15:17 Random Glucose 45 MG/DL 125 MG/DL Carcinoembryonic Antigen 1.4 NG/ML CA 19-9 Antigen 20.8 U/ML Sodium Level 137 MEQ/L Potassium Level 3.7 MEQ/L Chloride Level 105 MEQ/L Carbon Dioxide Level 24.0 MEQ/L Anion Gap 8 MEQ/L Blood Urea Nitrogen 18 MG/DL Creatinine 1.02 MG/DL Estimat Glomerular Filtration 73 ML/MIN Rate Calcium Level 7.6 MG/DL Tumor Marker Alpha Fetoprotein 0.9 NG/ML Test 12/07/16 05:20 Creatinine 0.89 MG/DL Estimat Glomerular Filtration 86 ML/MIN Rate Microbiology Date/Time Procedure Status Source Growth 12/05/16 17:02 Gram Stain - Final Resulted Wound Foot 12/05/16 17:02 Wound Culture - Preliminary Resulted Wound Foot 12/05/16 17:02 Acid Fast Stain - Final Resulted Wound Foot NO ACID FAST BACILLI SEEN 12/05/16 17:02 Mycobacterial Culture Resulted Wound Foot Pending 12/05/16 17:02 Fungal Smear - Final Resulted Wound Foot NO FUNGAL ELEMENTS SEEN. 12/05/16 17:02 Fungal Culture Resulted Wound Foot Pending Physical Exam Remarks Left foot- amp site coapted with moderate redness minimal drainage remaining toes are pink, no ischemic changes, sensation decreased to light touch Assessment & Plan A/P Left foot DM infection gangrene 2nd digit. SP 2nd digit amputation and resection of 2nd metatarsal- 12-05 Patient appears to be improving, will monitor wound healing, bandage changed. Appreciate Vascular rec's. FU 2-3 days, nursing to perform bandage change, sign out to Dr Pearl. Hakan Driscoll DPM Dec 07, 2016 12:30
--- NOTE | 2016-12-07 13:18 | HHI.PR ---
Subjective Remarks No acute events overnight. Afebrile, vital signs stable. Patient with no complaints this morning. Denies fever/chills. He endorses good appetite. Objective Vitals Vital Signs Date Time Temp Pulse Resp B/P Pulse Ox O2 Delivery O2 Flow Rate FiO2 12/07/16 12:00 98.0 86 18 163/79 96 12/07/16 08:00 97.7 83 18 143/67 97 12/07/16 04:00 98.0 87 17 131/61 96 12/07/16 00:00 98.9 83 17 139/66 100 12/06/16 20:00 98.4 102 20 166/68 96 12/06/16 20:00 84 12/06/16 20:00 Room Air 12/06/16 15:22 98.8 86 20 134/67 97 I/O 12/06/16 12/06/16 12/06/16 12/07/16 12/07/16 12/07/16 07:00 15:00 23:00 07:00 15:00 23:00 Intake Total 1249 ml 360 ml 2069 ml 220 ml Output Total 325 ml 750 ml 600 ml Balance 924 ml 360 ml 1319 ml -380 ml Intake Oral 360 ml 360 ml 540 ml 220 ml IV Total 889 ml 1529 ml Output Urine Total 325 ml 750 ml 600 ml # Voids 2 2 # Bowel Movements 0 3 0 Result Diagram: 12/06/16 0451 12/07/16 0520 Objective Remarks GENERAL: Laying in bed Eyes: Extraocular motion intact CARDIAC: Regular rhythm, regular rate. No murmurs gallops. LUNGS: Clear to auscultation bilaterally. No wheeze. No use of accessory muscles on inspiration or expiration. ABDOMEN: Soft, nontender. Nondistended. EXTREMITIES: No edema, dressing over her left lower extremity NEUROLOGY: Quiet and not very talkative but answers questions. Cranial nerves II through XII grossly intact. Moves extremities with no difficulty. A/P Problem List: (1) Severe sepsis ICD Code: A41.9 Status: Acute (2) Leucocytosis ICD Code: D72.829 Status: Acute (3) Diabetic foot infection ICD Code: E11.69 Status: Acute (4) Diabetes ICD Code: E11.9 Status: Acute (5) Hypertension ICD Code: I10 Status: Acute (6) Hyperlipidemia ICD Code: E78.5 Status: Acute (7) Atrial fibrillation ICD Code: I48.91 Status: Acute Assessment and Plan Severe sepsis Patient is criteria on admission with leukocytosis, tachycardia, left diabetic foot wound, hypotension Continue to follow blood cultures so far negative to date. And wound cultures shows mixed anaerobes. Repeat wound cultures pending - NGTD on vancomycin and Zosyn Left foot diabetic wound Left foot DM infection gangrene 2nd digit. Podiatry following. S/P 2nd digit amputation and resection of 2nd metatarsal- , dressing change today Vascular surgery also following. Plan for angiogram with possible intervention early next week. Leukocytosis Secondary to sepsis Continue to follow CBC Possible pancreatic adenocarcinoma per imaging . CT reviewed. Oncology and GI following. NPO after MN Thursday night for possible EUS Thursday Diabetes mellitus type 2, uncontrolled A1c 10.6 Accu-Cheks with sliding scale insulin hemoglobin A1c 10.6 this admission patient will likely need long acting insulin on dc Hypertension Resume home blood pressure medications Hyperlipidemia Check lipid panel Resume Statin Chronic atrial fibrillation Patient with tachycardia presentation, however heart rate improved at this time Resume medications when blood pressure stabilized DVT prevention -Sequential compression devices Discharge Planning Dressing change of left foot today NPO after MN night for possible EUS Thursday vascular sx also planning on performing an angiogram with possible intervention early next week Problem Qualifiers (1) Diabetes: Qualified Code: E11.621 - Type 2 diabetes mellitus with foot ulcer, with long- term current use of insulin (2) Hypertension: Qualified Code: I10 - Hypertension, unspecified type (3) Hyperlipidemia: Qualified Code: E78.5 - Hyperlipidemia, unspecified hyperlipidemia type (4) Atrial fibrillation: Qualified Code: I48.91 - Atrial fibrillation, unspecified type Shama Garrett MD R3 Dec 07, 2016 13:18
[2016-12-07 16:00] VITALS: BP 150/66; PULSE 90; RESP 18; TEMP 97.8; O2SAT 97
[2016-12-07 20:00] VITALS: BP 157/74; PULSE 140; PULSE 71; RESP 18; TEMP 99.2; O2SAT 94
[2016-12-07] MEDS: ATORVASTATIN 20 MG TAB PO SCH (20:30)
[2016-12-07] MEDS: INSULIN DETEMIR 100 UNITS/ML VIAL SQ SCH (20:30)
[2016-12-08] VITALS: BP 150/79; PULSE 88; RESP 18; TEMP 98.3; O2SAT 97
[2016-12-08] MEDS: PIPERACIL-TAZO 3.375 GM PREMIX 50 ML IV SCH ×4 (02:17→21:35)
[2016-12-08 04:00] VITALS: BP 154/67; PULSE 93; RESP 20; TEMP 97.3; O2SAT 97
[2016-12-08] MEDS ORDERED: VANCOMYCIN INJ 1,500 MG in SODIUM CHLOR 0.9% 250 ML INJ 250 ML IV SCH (06:00)
[2016-12-08] MEDS: INSULIN ASPART SUPPLEMENTAL SCALE SQ SCH ×4 (06:05→21:00)
[2016-12-08 07:02] LABS: AUTOMATED NEUTROPHIL # 7.1 TH/MM3 (1.8-7.7); BASOPHIL # 0.1 TH/MM3 (0-0.2); BASOPHIL % 1.1 % (0.0-2.0); EOSINOPHIL # 0.3 TH/MM3 (0-0.4); HEMATOCRIT 32.4 % (39.0-51.0); HEMO FLAGS DIFF FINAL; LYMPHOCYTE # 1.2 TH/MM3 (1.0-4.8); MEAN CELL VOLUME 97.1 FL (80.0-100.0); MEAN CORPUSCULAR HEMOGLOBIN 31.8 PG (27.0-34.0); MEAN CORPUSCULAR HGB CONC 32.8 % (32.0-36.0); MONO % 12.1 % (0.0-8.0); NEUT % 71.8 % (16.0-70.0); PLATELET COUNT 248 TH/MM3 (150-450); RED BLOOD COUNT 3.34 MIL/MM3 (4.50-5.90); WHITE BLOOD COUNT 9.9 TH/MM3 (4.0-11.0)
[2016-12-08 07:39] LABS: BICARBONATE 19.9 MEQ/L (21.0-32.0); HDL CHOLESTEROL 18.5 MG/DL (40.0-60.0); POTASSIUM 3.4 MEQ/L (3.5-5.1)
[2016-12-08] MEDS: SODIUM CHLORIDE 0.9% FLUSH 10 ML FLUSH IV FLUSH SCH ×2 (07:51→21:37)
[2016-12-08 08:00] VITALS: BP 158/72; PULSE 99; RESP 20; TEMP 97.8; O2SAT 93
[2016-12-08 08:03] LABS: CALCIUM-PROTEIN CORRECTED 7.9 MG/DL (8.5-10.1)
--- NOTE | 2016-12-08 08:30 | MP ---
cc: [facility] DATE OF SURGERY 12/05/2016 PREOPERATIVE DIAGNOSIS Left foot abscess/infection/gangrene second digit. POSTOPERATIVE DIAGNOSIS Left foot abscess/infection/gangrene second digit. PROCEDURES PERFORMED Left foot incision and drainage, debridement, second digit amputation and second metatarsal resection. FINDINGS Deep gas within the second MPJ, however, no proximal tunneling or tracking on the dorsal or plantar surface of the foot. There was no obvious foreign body noted, also decreased bleeding noted upon relieving Esmarch ankle tourniquet. SPECIMEN Second digit second metatarsal for pathology. Deep bone and joint capsule wound culture taken. ESTIMATED BLOOD LOSS Less than 30 mL. ANESTHESIA General with anterior ankle block, 20 cc of 0.25% Marcaine plain. TOURNIQUET Esmarch wrapped around the ankle for 10 minutes. PLAN OF ACTIVITY PACU, then return to floor to monitor wound and clinical status. JUSTIFICATION FOR PROCEDURE A 66-year-old male who is per family has very poor diabetic and hyperglycemic control, had increased pain and swelling and foul odor, presented to the [place] ED. He was known to have decreased pulses and foul-smelling foot, further verified to have deep gas within the tissue. The patient was educated on the severity of the infection and the likelihood of delayed healing, nonhealing, possible need for more surgery and possible below-knee amputation eventually due to the severity of the pathology and the infection. No guarantees were given or implied regarding the outcome. PROCEDURE IN DETAIL Under mild sedation the patient was brought into the operating room, placed on the operative table in the supine position. Following the induction of general anesthesia, local anesthesia was obtained about the anterior ankle utilizing standard block fashion. The patient's left foot was then scrubbed, prepped and draped in the usual aseptic fashion, elevated, exsanguinated and the Esmarch was wrapped around the ankle. A fishmouth type incision was made encompassing the second digit which was noted to have delayed capillary fill time and necrosis. Upon incising deep into the joint capsule, there was noted to be air bubbles. Rongeur and curettage took place of all nonviable necrotic manriquez tissue. The second metatarsal head was then transected in the mid-diaphyseal portion which appeared to be clinically free from any osteomyelitis. The wound was then flushed with 3 liters normal saline, pulse lavage, the Esmarch dropped. There was noted to be punctate bleeding but no arterial bleeding noted. The wound edges were then loosely coapted with packing, a bulky bandage placed and the patient transferred from OR to PACU with all vital signs stable. We will continue to monitor the wound. Appreciate vascular input. Followup within 1-2 days for bandage and wound check. CARLEY Banegas/ADAL /5:43 PM /8:26 AM
[2016-12-08] MEDS: DOCUSATE SODIUM 50 MG/SENNA 8.6 MG TAB PO SCH ×2 (09:00→21:00)
[2016-12-08] MEDS: HYDROCHLOROTHIAZIDE 25 MG TAB PO SCH (09:16)
[2016-12-08] MEDS: METOPROLOL SUCCINATE 50 MG EXTENDED RELEASE TAB PO SCH (09:16)
[2016-12-08] MEDS: LISINOPRIL 20 MG TAB PO SCH (09:16)
[2016-12-08] MEDS ORDERED: POTASSIUM CHLORIDE 10 MEQ CONTROLLED RELEASE TAB PO ONE (09:45)
[2016-12-08] MEDS ORDERED: HEPARIN SODIUM - IV 10,000 UNITS/10 ML VIAL ONE (10:16)
[2016-12-08] MEDS ORDERED: MIDAZOLAM HCL 5 MG/ML VIAL (1 ML) ONE (10:16)
[2016-12-08] MEDS ORDERED: IOHEXOL 300 MG/ML 100 ML BTL (for Rad CT) OTHER ONE (10:32)
[2016-12-08] MEDS ORDERED: LIDOCAINE HCL 1% 20 ML VIAL INFIL ONE (10:32)
[2016-12-08] MEDS ORDERED: IOHEXOL 300 MG/ML 50 ML BTL (for RAD DIAG) OTHER ONE (10:33)
[2016-12-08] MEDS ORDERED: CLOPIDOGREL 300 MG TAB ONE (11:42)
--- NOTE | 2016-12-08 12:16 | HHI.PR ---
Subjective Remarks Follow-up sepsis/diabetic foot infection/rule out pancreatic adenocarcinoma 12/08/16-patient seen and examined, oriented to self however not to date and place. Increasing confusion this a.m. Vitals stable. Objective Vitals Vital Signs Date Time Temp Pulse Resp B/P Pulse Ox O2 Delivery O2 Flow Rate FiO2 12/08/16 08:00 97.8 99 20 158/72 93 12/08/16 04:00 97.3 93 20 154/67 97 12/08/16 00:00 98.3 88 18 150/79 97 12/07/16 20:00 Room Air 12/07/16 20:00 140 12/07/16 20:00 99.2 71 18 157/74 94 12/07/16 16:00 97.8 90 18 150/66 97 I/O 12/07/16 12/07/16 12/07/16 12/08/16 12/08/16 12/08/16 07:00 15:00 23:00 07:00 15:00 23:00 Intake Total 220 ml 360 ml 240 ml 240 ml Output Total 600 ml 600 ml 400 ml Balance -380 ml 360 ml -360 ml -160 ml Intake Oral 220 ml 360 ml 240 ml 240 ml Output Urine Total 600 ml 600 ml 400 ml # Voids 3 # Bowel Movements 0 3 1 3 Result Diagram: 12/08/16 0606 12/08/16 0606 Imaging Last Impressions Lower Extremity Ultrasound 12/05/16 0000 Signed Impressions: Service Date/Time: Monday, December 05, 2016 23:02 - CONCLUSION: No evidence of left leg DVT. 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 This could be confirmed with knee MRI if clinically indicated Fabio Mulligan MD Foot X-Ray 12/04/16 1129 Signed Impressions: Service Date/Time: November 11:31 - CONCLUSION: Unremarkable examination of the left foot except for soft tissue air and inflammation in the plantar aspect overlying the second toe and second MTP joint. Joseph Zapata MD Lower Extremity CT 12/04/16 0000 Signed Impressions: Service Date/Time: November 14:26 - CONCLUSION: Significant soft tissue air around the second toe and second MTP joint. I do not see a drainable fluid collection or obvious abscess. There is no underlying bone fracture or foreign body. There is a soft tissue ulcer with some debris. No foreign body is seen. Joseph Zapata MD Aorta w/Runoff CTA 12/04/16 0000 Signed Impressions: Service Date/Time: November 14:26 - CONCLUSION: 1. 2.5 x 1.9 cm hypodense lesion in the uncinate process of the pancreas with resultant pancreatic ductal dilatation and questionable tail atrophy. Findings are concerning for pancreatic adenocarcinoma. Consider further evaluation with endoscopic ultrasound and possible sampling. 2. Combination of inflow and outflow stenoses on the left, as above. If confirmed with angiography, patient may benefit from endovascular intervention. 3. SFA outflow and primarily runoff disease on the right, as above. Ross Sarkar MD Objective Remarks GENERAL: NAD SKIN: Warm and dry. HEAD: Normocephalic. EYES: No scleral icterus. No injection or drainage. NECK: Supple, trachea midline. No JVD or lymphadenopathy. CARDIOVASCULAR: Regular rate and rhythm without murmurs, gallops, or rubs. RESPIRATORY: Breath sounds equal bilaterally. No accessory muscle use. GASTROINTESTINAL: Abdomen soft, non-tender, nondistended. MUSCULOSKELETAL: No cyanosis, or edema. BACK: Nontender without obvious deformity. No CVA tenderness. A/P Problem List: (1) Severe sepsis ICD Code: A41.9 Status: Acute (2) Leucocytosis ICD Code: D72.829 Status: Acute (3) Diabetic foot infection ICD Code: E11.69 Status: Acute (4) Diabetes ICD Code: E11.9 Status: Acute (5) Hypertension ICD Code: I10 Status: Acute (6) Hyperlipidemia ICD Code: E78.5 Status: Acute (7) Atrial fibrillation ICD Code: I48.91 Status: Acute Assessment and Plan 66-year-old man with Severe sepsis Repeat blood culture negative to date, continue vancomycin and Zosyn Left foot diabetic wound/infection Left foot DM infection gangrene 2nd digit. Podiatry following. S/P 2nd digit amputation and resection of 2nd metatarsal- , Vascular surgery also following. Status post angiogram this a.m. 12/08/16 Leukocytosis Secondary to sepsis Continue to follow CBC Possible pancreatic adenocarcinoma per imaging . CT reviewed. Oncology and GI following. Plan for EUS 12/09/16 Diabetes mellitus type 2, uncontrolled A1c 10.6 Accu-Cheks with sliding scale insulin hemoglobin A1c 10.6 this admission Hypertension Continue home blood pressure medications Hyperlipidemia On Statin Chronic atrial fibrillation Continue medications when blood pressure stabilized DVT prevention -Sequential compression devices Problem Qualifiers (1) Diabetes: Qualified Code: E11.621 - Type 2 diabetes mellitus with foot ulcer, with long- term current use of insulin (2) Hypertension: Qualified Code: I10 - Hypertension, unspecified type (3) Hyperlipidemia: Qualified Code: E78.5 - Hyperlipidemia, unspecified hyperlipidemia type (4) Atrial fibrillation: Qualified Code: I48.91 - Atrial fibrillation, unspecified type Harsh Lambert MD Dec 08, 2016 12:16
--- NOTE | 2016-12-08 12:46 | MA ---
cc: TI FAUSTIN DATE: 12/08/2016 PREOPERATIVE DIAGNOSIS Critical limb ischemia, diabetic foot ulcer, left lower extremity. POSTOPERATIVE DIAGNOSIS Critical limb ischemia, diabetic foot ulcer, left lower extremity. PROCEDURE 1. Aortogram. 2. Selective left lower extremity arteriogram. 3. Balloon angioplasty with a 5 mm x 4 cm Tus reQRdostronic balloon. SURGEON Dr. Ti Faustin ESTIMATED BLOOD LOSS Minimal IV FLUIDS Approximately 150 cc. URINE OUTPUT Not calculated. COMPLICATIONS None. DISPOSITION DOC unit. DETAILS OF PROCEDURE The patient's bilateral groins were prepped and draped in a sterile fashion. I got access to the right common femoral artery using duplex ultrasound. I used the Seldinger technique and exchanged from a 4-Burundian micropuncture catheter to a 5-Burundian sheath. I then advanced an Omni Flush catheter and stiff angle Glidewire into the abdominal aorta. I shot an AP aortogram. I pulled my catheter down and shot pelvic oblique arteriograms. I selected out the left lower extremity external iliac artery using an angled glide catheter and shot a selective left lower extremity arteriogram. After doing this we exchanged for a 6-Burundian, 45 cm Destination sheath. There was significant moderate severe stenosis of the left popliteal artery that was treated with a balloon angioplasty of the left popliteal artery. I crossed the popliteal artery lesion with a stiff angled Glidewire and an angled catheter. Once we performed balloon angioplasty we resolved the left above-knee popliteal artery lesion and there was no residual stenosis and good blood flow across this area. I did heparinize to an ACT of greater than 200 with 6000 units of heparin. At the end of the procedure I exchanged for a 6-Burundian Angio-Seal and applied it to the right groin. FINDINGS The abdominal aorta was widely patent. The bilateral renal arteries were widely patent. The bilateral common, internal and external iliac arteries were patent. There was some mild disease of the left common iliac artery but did not appear to be flow-limiting. The right common femoral and profunda femoral arteries were widely patent. The right superficial femoral artery had a moderate to high-grade stenosis at its origin of a short segment. The sheath was approximately 1-2 cm above the origin of the takeoff of the profunda and SFA. The left lower extremity common femoral and profunda femoral arteries were widely patent. The left superficial femoral artery had some mild disease in the mid section. The left popliteal artery had a distal SFA. The proximal popliteal artery had a short segment less than 5 cm severe stenosis that was treated with balloon angioplasty as previously described with complete resolution. The patient had a high takeoff of the left anterior tibial artery with three-vessel runoff across the left foot. The patient tolerated the procedure well. DO FRANCINE Lara /11:37 AM /12:38 PM [email or web address]
--- NOTE | 2016-12-08 13:33 | PD.VS.PN ---
Subjective POD #: 0 Procedure(s): angiogram and balloon angioplasty of above knee popliteal artery. Subjective/Hospital Course status post left 2nd toe and MT amp with drainage of abscess for DF wound. Objective Vitals/I&O Date Time Temp Pulse Resp B/P Pulse Ox O2 Delivery O2 Flow Rate FiO2 12/08/16 11:41 100 Room Air 12/08/16 08:00 97.8 99 20 158/72 93 12/08/16 04:00 97.3 93 20 154/67 97 12/08/16 00:00 98.3 88 18 150/79 97 12/07/16 20:00 Room Air 12/07/16 20:00 140 12/07/16 20:00 99.2 71 18 157/74 94 12/07/16 16:00 97.8 90 18 150/66 97 12/08/16 12/08/16 12/08/16 06:59 14:59 22:59 Intake Total 240 ml Output Total 400 ml Balance -160 ml Pulses: left foot with dressing right groin without swelling. Laboratory Laboratory Tests Test 12/08/16 06:06 White Blood Count 9.9 Red Blood Count 3.34 Hemoglobin 10.6 Hematocrit 32.4 Mean Corpuscular Volume 97.1 Mean Corpuscular Hemoglobin 31.8 Mean Corpuscular Hemoglobin 32.8 Concent Red Cell Distribution Width 14.0 Platelet Count 248 Mean Platelet Volume 8.3 Neutrophils (%) (Auto) 71.8 Lymphocytes (%) (Auto) 12.0 Monocytes (%) (Auto) 12.1 Eosinophils (%) (Auto) 3.0 Basophils (%) (Auto) 1.1 Neutrophils # (Auto) 7.1 Lymphocytes # (Auto) 1.2 Monocytes # (Auto) 1.2 Eosinophils # (Auto) 0.3 Basophils # (Auto) 0.1 CBC Comment DIFF FINAL Differential Comment Sodium Level 137 Potassium Level 3.4 Chloride Level 106 Carbon Dioxide Level 19.9 Anion Gap 11 Blood Urea Nitrogen 16 Creatinine 0.71 Estimat Glomerular Filtration 111 Rate Random Glucose 64 Calcium Level 7.3 Protein Corrected Calcium 7.9 Total Protein 6.0 Triglycerides Level 182 Cholesterol Level 104 LDL Cholesterol 49 HDL Cholesterol 18.5 Cholesterol/HDL Ratio 5.62 Date/Time Procedure Status Source Growth 12/05/16 17:02 Gram Stain - Final Complete Wound Foot 12/05/16 17:02 Wound Culture - Final Complete Wound Foot 12/05/16 17:02 Fungal Smear - Final Resulted Wound Foot NO FUNGAL ELEMENTS SEEN. 12/05/16 17:02 Fungal Culture Resulted Wound Foot Pending 12/05/16 17:02 Acid Fast Stain - Final Resulted Wound Foot NO ACID FAST BACILLI SEEN 12/05/16 17:02 Mycobacterial Culture Resulted Wound Foot Pending 12/04/16 11:18 Aerobic Blood Culture - Preliminary Resulted Blood Peripheral NO GROWTH IN 4 DAYS 12/04/16 11:18 Anaerobic Blood Culture - Preliminary Resulted Blood Peripheral NO GROWTH IN 4 DAYS Assessment and Plan Assessment: (1) Diabetic foot infection Status: Acute Plan 66 year old male with hx of PAD and DM with diabetic foot infection with air tracking in SQ tissue. Status post surgical treatment for foot infection by Dr. Paredes. status post angio with balloon angioplasty of left outflow lesion. Plan for plavix daily. Ti Joaquin DO Dec 08, 2016 13:33
[2016-12-08 16:00] VITALS: BP 151/79; PULSE 103; RESP 20; TEMP 97.7; O2SAT 98
[2016-12-08 17:12] VITALS: PULSE 89
[2016-12-08] MEDS ORDERED: METOPROLOL TARTRATE 25 MG TAB PO ONE (18:45)
[2016-12-08 20:00] VITALS: PULSE 83
[2016-12-08] MEDS: INSULIN DETEMIR 100 UNITS/ML VIAL SQ SCH (21:00)
[2016-12-08] MEDS: ATORVASTATIN 20 MG TAB PO SCH (21:36)
[2016-12-09] VITALS (13 sets, daily range): BP systolic 121–187; BP diastolic 60–90; PULSE 78–157; RESP 16–24; TEMP 97.4–98.2; O2SAT 91–99
[2016-12-09] MEDS: PIPERACIL-TAZO 3.375 GM PREMIX 50 ML IV SCH ×4 (00:55→20:00)
[2016-12-09] MEDS: VANCOMYCIN INJ 1,500 MG in SODIUM CHLORID 0.9% 500 ML INJ 500 ML IV SCH ×2 (00:55→18:33)
[2016-12-09] MEDS: INSULIN ASPART SUPPLEMENTAL SCALE SQ SCH ×4 (06:38→21:00)
[2016-12-09] MEDS: METOPROLOL SUCCINATE 50 MG EXTENDED RELEASE TAB PO SCH (07:46)
[2016-12-09] MEDS: DOCUSATE SODIUM 50 MG/SENNA 8.6 MG TAB PO SCH (07:46)
[2016-12-09] MEDS: LISINOPRIL 20 MG TAB PO SCH (07:46)
[2016-12-09] MEDS: HYDROCHLOROTHIAZIDE 25 MG TAB PO SCH (07:46)
[2016-12-09] MEDS: SODIUM CHLORIDE 0.9% FLUSH 10 ML FLUSH IV FLUSH SCH ×2 (07:52→22:04)
--- NOTE | 2016-12-09 11:30 | PD.VS.PN ---
Subjective POD #: 1 Procedure(s): angiogram and balloon angioplasty of above knee popliteal artery. Subjective/Hospital Course Pt in bed w/o complaints Bilat LE warm with motor intact Pain controlled Right groin w/o hematoma Dressing to L 2nd toe amputation site C/D/I (Lena Leon) Objective Vitals/I&O Date Time Temp Pulse Resp B/P Pulse Ox O2 Delivery O2 Flow Rate FiO2 12/09/16 08:00 149 12/09/16 07:40 98.0 141 20 130/86 12/09/16 07:39 Room Air 12/09/16 04:00 98.2 82 16 143/76 98 12/09/16 00:00 97.4 78 18 135/60 98 12/08/16 20:00 83 12/08/16 20:00 Room Air 12/08/16 17:12 89 12/08/16 17:12 100 Room Air 12/08/16 16:00 97.7 103 20 151/79 98 12/08/16 11:41 100 Room Air Exam: GENERAL: Pt alert in NAD SKIN: Warm and dry/Right groin w/o hematoma/ Dressing to L 2nd toe amputation site C/D/I GASTROINTESTINAL: S/NT MUSCULOSKELETAL: No cyanosis, or edema. R DP/PT with strong signals heard via Doppler L DP/PT with strong signals heard via Doppler Bilat LE warm w/ motor intact Laboratory Laboratory Tests Test 12/09/16 07:05 Creatinine 0.77 Estimat Glomerular Filtration 101 Rate Date/Time Procedure Status Source Growth 12/05/16 17:02 Gram Stain - Final Complete Wound Foot 12/05/16 17:02 Wound Culture - Final Complete Wound Foot 12/05/16 17:02 Fungal Smear - Final Resulted Wound Foot NO FUNGAL ELEMENTS SEEN. 12/05/16 17:02 Fungal Culture Resulted Wound Foot Pending 12/05/16 17:02 Acid Fast Stain - Final Resulted Wound Foot NO ACID FAST BACILLI SEEN 12/05/16 17:02 Mycobacterial Culture Resulted Wound Foot Pending (Lena Leon) Assessment and Plan Assessment: (1) Diabetic foot infection Status: Acute Plan 66 year old male with hx of PAD and DM with diabetic foot infection with air tracking in SQ tissue. Status post surgical treatment for foot infection by Dr. Paredes. status post angio with balloon angioplasty of left outflow lesion. Plan for plavix daily. Plan PT/OOB/WBAT Apply Post op shoe to left foot for transfers Lena MILLS [facility] [phone] (Lena Leon) Plan I agree with above. Patient having endoscopic biopsy today. Otherwise, blood flow optimized to left lower extremity. Ti Hess DO, FACS (Ti Hess DO) Lena Leon Dec 09, 2016 11:30 Ti Hess DO Dec 09, 2016 14:58
--- NOTE | 2016-12-09 12:40 | HHI.PR ---
Subjective Remarks Follow-up sepsis/diabetic foot infection/rule out pancreatic adenocarcinoma 12/08/16-patient seen and examined, oriented to self however not to date and place. Increasing confusion this a.m. Vitals stable. 12/09/16-patient seen and examined, with multiple loose stools and occasional increased heart rates otherwise stable. Brother by the bedside. Patient is status post angio with balloon angioplasty of left outflow lesion 12/08/16 Objective Vitals Vital Signs Date Time Temp Pulse Resp B/P Pulse Ox O2 Delivery O2 Flow Rate FiO2 12/09/16 08:00 149 12/09/16 07:40 98.0 141 20 130/86 12/09/16 07:39 Room Air 12/09/16 04:00 98.2 82 16 143/76 98 12/09/16 00:00 97.4 78 18 135/60 98 12/08/16 20:00 83 12/08/16 20:00 Room Air 12/08/16 17:12 89 12/08/16 17:12 100 Room Air 12/08/16 16:00 97.7 103 20 151/79 98 I/O 12/08/16 12/08/16 12/08/16 12/09/16 12/09/16 12/09/16 07:00 15:00 23:00 07:00 15:00 23:00 Intake Total 240 ml 0 ml 480 ml Output Total 400 ml 300 ml 500 ml Balance -160 ml -300 ml -20 ml Intake Oral 240 ml 0 ml 480 ml Output Urine Total 400 ml 300 ml 500 ml # Bowel Movements 3 1 0 Result Diagram: 12/08/16 0606 12/09/16 0705 Objective Remarks GENERAL: NAD SKIN: Warm and dry. HEAD: Normocephalic. EYES: No scleral icterus. No injection or drainage. NECK: Supple, trachea midline. No JVD or lymphadenopathy. CARDIOVASCULAR: Regular rate and rhythm without murmurs, gallops, or rubs. RESPIRATORY: Breath sounds equal bilaterally. No accessory muscle use. GASTROINTESTINAL: Abdomen soft, non-tender, nondistended. MUSCULOSKELETAL: No cyanosis, or edema. BACK: Nontender without obvious deformity. No CVA tenderness. A/P Problem List: (1) Severe sepsis ICD Code: A41.9 Status: Acute (2) Leucocytosis ICD Code: D72.829 Status: Acute (3) Diabetic foot infection ICD Code: E11.69 Status: Acute (4) Diabetes ICD Code: E11.9 Status: Acute (5) Hypertension ICD Code: I10 Status: Acute (6) Hyperlipidemia ICD Code: E78.5 Status: Acute (7) Atrial fibrillation ICD Code: I48.91 Status: Acute Assessment and Plan 66-year-old man with Severe sepsis Repeat blood culture negative to date, continue vancomycin and Zosyn Left foot diabetic wound/infection Left foot DM infection gangrene 2nd digit. Podiatry following. S/P 2nd digit amputation and resection of 2nd metatarsal- , Vascular surgery also following. status post angio with balloon angioplasty of left outflow lesion 12/08/16 Leukocytosis Secondary to sepsis Continue to follow CBC Possible pancreatic adenocarcinoma per imaging . CT reviewed. Oncology and GI following. Plan for EUS today 12/09/16 Diabetes mellitus type 2, uncontrolled A1c 10.6 Accu-Cheks with sliding scale insulin hemoglobin A1c 10.6 this admission Hypertension Continue home blood pressure medications Hyperlipidemia On Statin Chronic atrial fibrillation Continue medications when blood pressure stabilized Diarrhea Discontinue all stool softener Consider C. difficile PCR DVT prevention -Sequential compression devices Problem Qualifiers (1) Diabetes: Qualified Code: E11.621 - Type 2 diabetes mellitus with foot ulcer, with long- term current use of insulin (2) Hypertension: Qualified Code: I10 - Hypertension, unspecified type (3) Hyperlipidemia: Qualified Code: E78.5 - Hyperlipidemia, unspecified hyperlipidemia type (4) Atrial fibrillation: Qualified Code: I48.91 - Atrial fibrillation, unspecified type Harsh Lambert MD Dec 09, 2016 12:40
[2016-12-09] MEDS ORDERED: PROPOFOL 200 MG/20 ML AMP IV ONE (13:56)
--- NOTE | 2016-12-09 15:09 | PD.PROCEDR ---
GI Procedure REFERRING PHYSICIAN Dr. Raygoza PROCEDURE PERFORMED Endoscopic ultrasound INDICATION FOR PROCEDURE Pancreatic mass PROCEDURE: The procedure, risks and benefits were discussed with Mr. Street and informed consent was obtained. Anesthesia sedated him with Diprivan. He was placed in the left lateral decubitus position. EUS: The Pentax videoscope was introduced through the oropharynx and advanced to the stomach. FINDINGS: The pancreatic body and tail were carefully evaluated there was a dilated pancreatic duct with mild inhomogeneity of the pancreatic parenchyma but no distinct tumors noted The pancreatic head appeared to be unremarkable but I was not able to identify the mass that was seen on the CAT scan No lymphadenopathy was noted Gallbladder polyp was seen Otherwise unremarkable ESTIMATED BLOOD LOSS: None SPECIMENS REMOVED: None COMPLICATIONS: None IMPRESSION: Pancreatic mass was not identified on this examination Gallbladder polyp PLAN: Case discussed with interventional radiology there is no window radiologically for a CT-guided biopsy Consider referral to a tertiary center for repeat EUS on outpatient basis Continue with supportive care Rick Avitia MD Dec 09, 2016 15:09
[2016-12-09] MEDS ORDERED: METOPROLOL TARTRATE 5 MG/5 ML VIAL ONE (15:30)
[2016-12-09] MEDS ORDERED: METOPROLOL TARTRATE 5 MG/5 ML VIAL IV PUSH ONE (16:15)
[2016-12-09] MEDS ORDERED: DO NOT ADM ANY ANTICOAGULANT DRUGS PRN (16:15)
[2016-12-09] MEDS ORDERED: DILTIAZEM HCL 25 MG/5 ML VIAL ONE ×2 (17:24→20:08)
[2016-12-09] MEDS ORDERED: DILTIAZEM HCL 25 MG/5 ML VIAL IV PRN (19:30)
[2016-12-09] MEDS ORDERED: DILTIAZEM HCL 25 MG/5 ML VIAL IV ONE (20:15)
[2016-12-09] MEDS ORDERED: DILTIAZEM HCL 25 MG/5 ML VIAL IVP PRN (21:00)
[2016-12-09] MEDS: INSULIN DETEMIR 100 UNITS/ML VIAL SQ SCH (21:00)
[2016-12-09] MEDS ORDERED: DILTIAZEM INJ 125 MG in SODIUM CHLORIDE 0.9% INJ 100 ML IV SCH (21:00)
--- NOTE | 2016-12-09 21:05 | RADRPT ---
EXAM DATE/TIME: 12/09/2016 20:53 [place] COMPARISON: No previous studies available for comparison. INDICATIONS : Short of breath. Tachycardia. MEDICAL HISTORY : Hypertension. Diabetes mellitus type II. Hypercholesterolemia. SURGICAL HISTORY : Pacemaker. ENCOUNTER: Initial ACUITY: 4 - 6 days PAIN SCORE: 0/10 LOCATION: Bilateral chest FINDINGS: A single view of the chest demonstrates the lungs to be symmetrically aerated without evidence of mas s, infiltrate or effusion. The cardiomediastinal contours are unremarkable. Left-sided pacemaker wi th single intact lead. Cardiomegaly. Osseous structures are intact. CONCLUSION: Cardiomegaly with clear lungs. Harsh Queen MD on December 09, 2016 at 21:03 Board Certified Radiologist. This report was verified electronically.
--- NOTE | 2016-12-09 21:16 | HHI.PR ---
Addendum to Inpatient Note Addendum Reason: Additional Documentation Additional Information LEON was called for atrial fibrillation with RVR in the 150's. The patient was given Cardizem bolus 15 mg with no improvement in rate and I came to the bedside to see the patient. The patient denies chest pain, shortness of breath , palpitations. Heart tones are irregularly irregular. The patient is somewhat anxious. He has a history of atrial fibrillation and pacemaker and sees storage receipt poster Dr. Stout in [place]. Oxygen saturation was in the mid-90 's and lungs were clear. A second bolus of Cardizem at 20 mg IV was ordered along with a Cardizem drip. Discussed with supervising physician Dr. Butler. Additional orders for labs, cxr, and serial cardiac enzymes as well as EKGs were ordered to look for underlying causes. The patient has some confusion which the nurse tells me is his baseline. He has a history of schizophrenia and is able to tell me year, month, place, his name, his brother's name, and his date. He cannot tell me his age. No focal neuro deficits are noted on examination though his speech is slightly difficult to understand at times - again, nursing tells me this is "normal" for him. We will follow up results of testing. His heart rate was in the 110's on Cardizem drip and his BP is 140's/ 80's. He appears stable at the time of this dictation. Queta Montemayor Dec 09, 2016 21:16
[2016-12-09] MEDS: ATORVASTATIN 20 MG TAB PO SCH (22:03)
[2016-12-09 22:21] LABS: AUTOMATED NEUTROPHIL # 16.4 TH/MM3 (1.8-7.7); BASOPHIL # 0.1 TH/MM3 (0-0.2); BASOPHIL % 0.6 % (0.0-2.0); EOSINOPHIL # 0.1 TH/MM3 (0-0.4); EOSINOPHIL % 0.3 % (0.0-4.0); HEMATOCRIT 36.9 % (39.0-51.0); HEMO FLAGS DIFF FINAL; LYMPH % 3.1 % (9.0-44.0); LYMPHOCYTE # 0.6 TH/MM3 (1.0-4.8); MEAN CELL VOLUME 97.8 FL (80.0-100.0); MEAN CORPUSCULAR HEMOGLOBIN 31.5 PG (27.0-34.0); MEAN CORPUSCULAR HGB CONC 32.2 % (32.0-36.0); PLATELET COUNT 347 TH/MM3 (150-450); RED BLOOD COUNT 3.77 MIL/MM3 (4.50-5.90); RED CELL DISTRIBUTION WIDTH 14.2 % (11.6-17.2); WHITE BLOOD COUNT 18.5 TH/MM3 (4.0-11.0)
[2016-12-09 22:44] LABS: ALT (GPT) 17 U/L (12-78); ANION GAP 21 MEQ/L (5-15); AST (GOT) 19 U/L (15-37); BICARBONATE 11.6 MEQ/L (21.0-32.0); BLOOD UREA NITROGEN 17 MG/DL (7-18); CHLORIDE 104 MEQ/L (98-107); GLOMERULAR FILTRATION RATE 77 ML/MIN (>89); MAGNESIUM 1.8 MG/DL (1.5-2.5); POTASSIUM 3.6 MEQ/L (3.5-5.1); SODIUM (NA) 137 MEQ/L (136-145)
[2016-12-09 22:47] LABS: ALKALINE PHOSPHATASE 85 U/L (45-117); CREATINE KINASE 105 U/L (39-308); TOTAL BILIRUBIN ADULT 0.6 MG/DL (0.2-1.0)
[2016-12-09] MEDS ORDERED: POTASSIUM CHLORIDE 20 MEQ CONTROLLED RELEASE TAB PO ONE (23:45)
[2016-12-09] MEDS ORDERED: FUROSEMIDE 20 MG/2 ML VIAL IV PUSH ONE (23:45)
[2016-12-10] VITALS: BP 108/57; PULSE 101; RESP 20; TEMP 97.6; O2SAT 98
[2016-12-10] MEDS: PIPERACIL-TAZO 3.375 GM PREMIX 50 ML IV SCH ×4 (02:01→21:57)
[2016-12-10] MEDS: SODIUM BICARBONATE 8.4% INJ 50 MEQ in DEXTROSE 5% IN WATE 1000ML INJ 1,000 ML IV SCH ×2 (02:01)
[2016-12-10 04:00] VITALS: BP 101/56; PULSE 78; RESP 18; TEMP 97.5; O2SAT 98
[2016-12-10 04:08] LABS: AUTOMATED NEUTROPHIL # 16.2 TH/MM3 (1.8-7.7); BASOPHIL # 0.1 TH/MM3 (0-0.2); BASOPHIL % 0.5 % (0.0-2.0); EOSINOPHIL % 0.1 % (0.0-4.0); HEMATOCRIT 33.8 % (39.0-51.0); HEMO FLAGS DIFF FINAL; LYMPH % 5.4 % (9.0-44.0); MEAN CELL VOLUME 96.2 FL (80.0-100.0); MEAN CORPUSCULAR HEMOGLOBIN 32.4 PG (27.0-34.0); MEAN CORPUSCULAR HGB CONC 33.7 % (32.0-36.0); MONO % 7.7 % (0.0-8.0); NEUT % 86.3 % (16.0-70.0); PLATELET COUNT 333 TH/MM3 (150-450); RED BLOOD COUNT 3.51 MIL/MM3 (4.50-5.90); WHITE BLOOD COUNT 18.8 TH/MM3 (4.0-11.0)
[2016-12-10 04:19] LABS: BICARBONATE 16.7 MEQ/L (21.0-32.0); POTASSIUM 3.8 MEQ/L (3.5-5.1)
[2016-12-10] MEDS: INSULIN ASPART SUPPLEMENTAL SCALE SQ SCH ×4 (06:04→22:04)
[2016-12-10 08:00] VITALS: BP 102/51; PULSE 74; RESP 18; TEMP 97.3; O2SAT 100
[2016-12-10] MEDS: LISINOPRIL 20 MG TAB PO SCH ×2 (09:00→09:21)
[2016-12-10] MEDS: METOPROLOL SUCCINATE 50 MG EXTENDED RELEASE TAB PO SCH ×2 (09:00→09:21)
[2016-12-10] MEDS: SODIUM CHLORIDE 0.9% FLUSH 10 ML FLUSH IV FLUSH SCH ×2 (09:00→21:59)
[2016-12-10] MEDS: HYDROCHLOROTHIAZIDE 25 MG TAB PO SCH ×2 (09:00→09:21)
--- NOTE | 2016-12-10 11:26 | PD.ONC.PN ---
Subjective Subjective Remarks Afebrile overnight. Patient resting in bed in nad. No complaints. Wants to know when he will go home. Objective Data Date Time Temp Pulse Resp B/P Pulse Ox O2 Delivery O2 Flow Rate FiO2 12/10/16 08:00 97.3 74 18 102/51 100 12/10/16 04:00 Nasal Cannula 2.00 12/10/16 04:00 97.5 78 18 101/56 98 12/10/16 00:00 97.6 101 20 108/57 98 12/10/16 00:00 Nasal Cannula 2.00 12/09/16 22:00 130 22 121/89 97 12/09/16 20:45 126 22 148/69 94 12/09/16 20:30 139 22 178/79 93 12/09/16 20:24 139 22 167/71 95 12/09/16 20:15 140 22 169/90 95 12/09/16 20:10 93 Nasal Cannula 3.00 12/09/16 20:10 93 3.00 12/09/16 20:00 Nasal Cannula 2.00 12/09/16 20:00 98.0 121 20 121/89 98 12/09/16 20:00 157 12/09/16 20:00 153 24 187/85 91 12/09/16 18:15 93 16 142/68 98 Nasal Cannula 2 12/09/16 18:00 94 16 132/74 97 Nasal Cannula 2 12/09/16 17:45 97 16 145/69 97 Nasal Cannula 2 12/09/16 17:30 109 16 140/99 97 Nasal Cannula 2 12/09/16 17:15 160 16 115/83 100 Nasal Cannula 2 12/09/16 17:00 153 16 105/70 98 Nasal Cannula 2 12/09/16 16:45 150 16 161/92 98 Nasal Cannula 2 12/09/16 16:30 135 16 161/94 98 Nasal Cannula 2 12/09/16 16:15 92 16 164/84 98 Nasal Cannula 2 12/09/16 16:00 108 16 152/85 98 Nasal Cannula 2 12/09/16 15:45 98 16 153/74 96 Nasal Cannula 2 12/09/16 15:30 131 16 136/87 96 Nasal Cannula 2 12/09/16 15:15 133 16 121/98 95 Nasal Cannula 2 7/25/17 14:55 98.0 155 16 95/63 93 Nasal Cannula 2 12/10/16 12/10/16 12/10/16 07:00 15:00 23:00 Intake Total 720 ml Output Total 2100 ml Balance -1380 ml Result Diagram: 12/10/16 0319 12/10/16 0319 Laboratory Results Laboratory Tests Test 12/09/16 12/10/16 21:45 03:19 White Blood Count 18.5 TH/MM3 18.8 TH/MM3 Red Blood Count 3.77 MIL/MM3 3.51 MIL/MM3 Hemoglobin 11.9 GM/DL 11.4 GM/DL Hematocrit 36.9 % 33.8 % Mean Corpuscular Volume 97.8 FL 96.2 FL Mean Corpuscular Hemoglobin 31.5 PG 32.4 PG Mean Corpuscular Hemoglobin 32.2 % 33.7 % Concent Red Cell Distribution Width 14.2 % 14.0 % Platelet Count 347 TH/MM3 333 TH/MM3 Mean Platelet Volume 8.0 FL 8.1 FL Neutrophils (%) (Auto) 89.0 % 86.3 % Lymphocytes (%) (Auto) 3.1 % 5.4 % Monocytes (%) (Auto) 7.0 % 7.7 % Eosinophils (%) (Auto) 0.3 % 0.1 % Basophils (%) (Auto) 0.6 % 0.5 % Neutrophils # (Auto) 16.4 TH/MM3 16.2 TH/MM3 Lymphocytes # (Auto) 0.6 TH/MM3 1.0 TH/MM3 Monocytes # (Auto) 1.3 TH/MM3 1.4 TH/MM3 Eosinophils # (Auto) 0.1 TH/MM3 0.0 TH/MM3 Basophils # (Auto) 0.1 TH/MM3 0.1 TH/MM3 CBC Comment DIFF FINAL DIFF FINAL Differential Comment Sodium Level 137 MEQ/L 135 MEQ/L Potassium Level 3.6 MEQ/L 3.8 MEQ/L Chloride Level 104 MEQ/L 101 MEQ/L Carbon Dioxide Level 11.6 MEQ/L 16.7 MEQ/L Anion Gap 21 MEQ/L 17 MEQ/L Blood Urea Nitrogen 17 MG/DL 20 MG/DL Creatinine 0.97 MG/DL 1.07 MG/DL Estimat Glomerular Filtration 77 ML/MIN 69 ML/MIN Rate Random Glucose 168 MG/DL 179 MG/DL Calcium Level 7.8 MG/DL 7.6 MG/DL Magnesium Level 1.8 MG/DL Total Bilirubin 0.6 MG/DL Aspartate Amino Transf 19 U/L (AST/SGOT) Alanine Aminotransferase 17 U/L (ALT/SGPT) Alkaline Phosphatase 85 U/L Total Creatine Kinase 105 U/L 100 U/L Troponin I 0.03 NG/ML 0.04 NG/ML B-Type Natriuretic Peptide 678 PG/ML Total Protein 6.6 GM/DL Albumin 2.4 GM/DL Administered Medications Medications (Trade) Dose Ordered Sig/Brad Route PRN Reason Start Time Stop Time Status Last Admin Dose Admin Sodium Chloride 2 ml 2 ml BID IV FLUSH 12/04/16 21:00 12/09/16 22:04 Piperacillin Sod/ Tazobactam Sod (Zosyn 3.375 Gm Premix) 50 ml @ 100 mls/hr Q6H IV 12/04/16 20:00 12/10/16 09:20 Atorvastatin Calcium (Lipitor) 20 mg HS PO 12/04/16 21:00 12/09/16 22:03 Metoprolol Succinate (Toprol Xl) 100 mg DAILY PO 12/05/16 09:00 12/09/16 07:46 Insulin Detemir (Levemir Inj) 10 units HS SQ 12/05/16 21:00 12/05/16 20:20 Acetaminophen/ Hydrocodone Bitart ([place] 10-325 Mg) 1 tab Q4H PRN PO Pain 6-10 12/04/16 20:15 12/04/16 20:37 Hydrochlorothiazide (Hydrodiuril) 25 mg DAILY PO 12/08/16 09:00 12/09/16 07:46 Lisinopril 40 mg 40 mg DAILY PO 12/08/16 09:00 12/09/16 07:46 Vancomycin HCl 1500 mg/Sodium Chloride 515 ml @ 250 mls/hr Q18H IV 12/09/16 00:00 12/09/16 18:33 Diltiazem HCl 125 mg/Sodium Chloride 125 ml @ 0 mls/hr TITRATE IV 12/09/16 21:00 12/09/16 20:50 Sodium Bicarbonate/ Dextrose (Sodium Bicarbonate 8.4% Inj/D5W 1000 ml Inj) 1,050 ml @ 42 mls/hr Q24H IV 12/10/16 02:00 12/10/16 02:01 Objective Remarks GENERAL: Middle aged male sitting up in bed in nad. SKIN: Warm and dry. HEAD: Normocephalic. EYES:No injection or drainage. NECK: Supple, trachea midline. CARDIOVASCULAR: +S1/S2 RESPIRATORY: Breath sounds equal bilaterally. No accessory muscle use. GASTROINTESTINAL: Abdomen soft, non-tender, nondistended. EXTREMITIES: No cyanosis. NEUROLOGICAL: awake and alert. able to move extremities. Assessment/Plan Problem List: (1) Pancreatic mass Status: Acute Plan: 12/10: EUS showed no mass, no biopsy could be obtained. I called and d/w patient's brother Mihir. would recommend following up in clinic in 6-12 weeks MRI abdomen. fs faxed to new patient referrals for follow up. --CTA-- Incidentally showed a 2.5 x 1.9 cm hypodense lesion in the uncinate process of the pancreas with the resultant pancreatic ductal dilatation and questionable tail atrophy. Findings are concerning for pancreatic adenocarcinoma. --CEA and CA 19-9 WNL Assessment 66y/o male with pancreatic mass, initially admitted with diabetic foot ulcer, now s/p amputation left second toe. history of schizophrenia, hypertension, diabetes mellitus, atrial fibrillation and hypercholesterolemia. Attending Statement Patient denies any new complaints Anxious to go home Brother's at bedside Discus EUS Results recommend MRI Of pancreas in 12 weeks Okay to discharge today Follow up as out patient The exam, history, and the medical decision-making described in the above note were completed with the assistance of the mid-level provider. I reviewed and agree with the findings presented. I attest that I had a [id number] encounter with the patient on the same day, and personally performed and documented my assessment and findings in the medical record. Priyanka Rojas Dec 10, 2016 11:26 Angeline Blanchard MD Dec 11, 2016 00:16
[2016-12-10] MEDS ORDERED: PHARMACY ORDERED LAB ONE (11:45)
[2016-12-10 12:00] VITALS: BP 126/58; PULSE 76; RESP 20; TEMP 97.9; O2SAT 100
[2016-12-10] MEDS: VANCOMYCIN INJ 1,500 MG in SODIUM CHLORID 0.9% 500 ML INJ 500 ML IV SCH (13:31)
--- NOTE | 2016-12-10 13:42 | HHI.PR ---
Subjective Remarks Follow-up sepsis/diabetic foot infection/rule out pancreatic adenocarcinoma 12/08/16-patient seen and examined, oriented to self however not to date and place. Increasing confusion this a.m. Vitals stable. 12/09/16-patient seen and examined, with multiple loose stools and occasional increased heart rates otherwise stable. Brother by the bedside. Patient is status post angio with balloon angioplasty of left outflow lesion 12/08/16 12/10/16-patient seen and examined, overnight Halicat was ordered 2/2 sustained tachycardia for which he was started on Cardizem drip. Currently rate control and patient pleasantly confused.EUS done yesterday however no mass seen and no biopsy obtained Objective Vitals Vital Signs Date Time Temp Pulse Resp B/P Pulse Ox O2 Delivery O2 Flow Rate FiO2 12/10/16 12:00 97.9 76 20 126/58 100 12/10/16 08:00 97.3 74 18 102/51 100 12/10/16 04:00 Nasal Cannula 2.00 12/10/16 04:00 97.5 78 18 101/56 98 12/10/16 00:00 97.6 101 20 108/57 98 12/10/16 00:00 Nasal Cannula 2.00 12/09/16 22:00 130 22 121/89 97 12/09/16 20:45 126 22 148/69 94 12/09/16 20:30 139 22 178/79 93 12/09/16 20:24 139 22 167/71 95 12/09/16 20:15 140 22 169/90 95 12/09/16 20:10 93 Nasal Cannula 3.00 12/09/16 20:10 93 3.00 12/09/16 20:00 Nasal Cannula 2.00 12/09/16 20:00 98.0 121 20 121/89 98 12/09/16 20:00 157 12/09/16 20:00 153 24 187/85 91 12/09/16 18:15 93 16 142/68 98 Nasal Cannula 2 12/09/16 18:00 94 16 132/74 97 Nasal Cannula 2 12/09/16 17:45 97 16 145/69 97 Nasal Cannula 2 12/09/16 17:30 109 16 140/99 97 Nasal Cannula 2 12/09/16 17:15 160 16 115/83 100 Nasal Cannula 2 12/09/16 17:00 153 16 105/70 98 Nasal Cannula 2 12/09/16 16:45 150 16 161/92 98 Nasal Cannula 2 12/09/16 16:30 135 16 161/94 98 Nasal Cannula 2 12/09/16 16:15 92 16 164/84 98 Nasal Cannula 2 12/09/16 16:00 108 16 152/85 98 Nasal Cannula 2 12/09/16 15:45 98 16 153/74 96 Nasal Cannula 2 12/09/16 15:30 131 16 136/87 96 Nasal Cannula 2 12/09/16 15:15 133 16 121/98 95 Nasal Cannula 2 12/09/16 14:55 98.0 155 16 95/63 93 Nasal Cannula 2 I/O 12/09/16 12/09/16 12/09/16 12/10/16 12/10/16 12/10/16 07:00 15:00 23:00 07:00 15:00 23:00 Intake Total 700 ml 740 ml 720 ml Output Total 350 ml 1200 ml 2100 ml Balance 350 ml -460 ml -1380 ml Intake Oral 0 ml 240 ml 480 ml IV Total 500 ml 190 ml Other 700 ml 50 ml Output Urine Total 300 ml 1200 ml 2100 ml Estimated Blood Loss 50 ml # Bowel Movements 2 0 0 Result Diagram: 12/10/16 0319 12/10/16 0319 Imaging Last Impressions Chest X-Ray 12/09/16 0000 Signed Impressions: Service Date/Time: Friday, December 09, 2016 20:53 - CONCLUSION: Cardiomegaly with clear lungs. Harsh Queen MD Lower Extremity Ultrasound 12/05/16 0000 Signed Impressions: Service Date/Time: Monday, December 05, 2016 23:02 - CONCLUSION: No evidence of left leg DVT. 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 This could be confirmed with knee MRI if clinically indicated Fabio Mulligan MD Foot X-Ray 12/04/16 1129 Signed Impressions: Service Date/Time: November 11:31 - CONCLUSION: Unremarkable examination of the left foot except for soft tissue air and inflammation in the plantar aspect overlying the second toe and second MTP joint. Joseph Zapata MD Lower Extremity CT 12/04/16 0000 Signed Impressions: Service Date/Time: November 14:26 - CONCLUSION: Significant soft tissue air around the second toe and second MTP joint. I do not see a drainable fluid collection or obvious abscess. There is no underlying bone fracture or foreign body. There is a soft tissue ulcer with some debris. No foreign body is seen. Joseph Zapata MD Aorta w/Runoff CTA 12/04/16 0000 Signed Impressions: Service Date/Time: November 14:26 - CONCLUSION: 1. 2.5 x 1.9 cm hypodense lesion in the uncinate process of the pancreas with resultant pancreatic ductal dilatation and questionable tail atrophy. Findings are concerning for pancreatic adenocarcinoma. Consider further evaluation with endoscopic ultrasound and possible sampling. 2. Combination of inflow and outflow stenoses on the left, as above. If confirmed with angiography, patient may benefit from endovascular intervention. 3. SFA outflow and primarily runoff disease on the right, as above. Ross Sarkar MD Objective Remarks GENERAL: NAD SKIN: Warm and dry. HEAD: Normocephalic. EYES: No scleral icterus. No injection or drainage. NECK: Supple, trachea midline. No JVD or lymphadenopathy. CARDIOVASCULAR: Regular rate and rhythm without murmurs, gallops, or rubs. RESPIRATORY: Breath sounds equal bilaterally. No accessory muscle use. GASTROINTESTINAL: Abdomen soft, non-tender, nondistended. MUSCULOSKELETAL: No cyanosis, or edema. BACK: Nontender without obvious deformity. No CVA tenderness. Procedures Left foot incision and drainage, debridement, second digit amputation and second metatarsal resection 12/05/16 A/P Problem List: (1) Severe sepsis ICD Code: A41.9 Status: Acute (2) Leucocytosis ICD Code: D72.829 Status: Acute (3) Diabetic foot infection ICD Code: E11.69 Status: Acute (4) Diabetes ICD Code: E11.9 Status: Acute (5) Hypertension ICD Code: I10 Status: Acute (6) Hyperlipidemia ICD Code: E78.5 Status: Acute (7) Atrial fibrillation ICD Code: I48.91 Status: Acute Assessment and Plan 66-year-old man with Severe sepsis-resolved Repeat blood culture negative to date, continue vancomycin and Zosyn Left foot diabetic wound/infection Left foot DM infection gangrene 2nd digit. Podiatry following. S/P 2nd digit amputation and resection of 2nd metatarsal- , Vascular surgery also following. status post angio with balloon angioplasty of left outflow lesion 12/08/16 Leukocytosis Secondary to sepsis Continue to follow CBC Possible pancreatic adenocarcinoma per imaging . CT reviewed. Oncology and GI following. EUS done 12/07/16 without any mass and no biopsy obtained. Appreciate input from oncology Diabetes mellitus type 2, uncontrolled A1c 10.6 Accu-Cheks with sliding scale insulin hemoglobin A1c 10.6 this admission Hypertension Hold Lopressor and hydrochlorothiazide Restart patient on Cardizem 30 mg 4 times a day Hyperlipidemia On Statin Chronic atrial fibrillation Patient started on Cardizem drip overnight and now rate control therefore will discontinue drip Start Cardizem 30 mg 3 times a day and hold Diarrhea Resolved DVT prevention -Sequential compression devices Problem Qualifiers (1) Diabetes: Qualified Code: E11.621 - Type 2 diabetes mellitus with foot ulcer, with long- term current use of insulin (2) Hypertension: Qualified Code: I10 - Hypertension, unspecified type (3) Hyperlipidemia: Qualified Code: E78.5 - Hyperlipidemia, unspecified hyperlipidemia type (4) Atrial fibrillation: Qualified Code: I48.91 - Atrial fibrillation, unspecified type Harsh Lambert MD Dec 10, 2016 13:42
[2016-12-10 16:00] VITALS: BP 130/58; PULSE 86; RESP 20; TEMP 97.9; O2SAT 99
--- NOTE | 2016-12-10 16:19 | HHI.GIFU ---
Subjective Remarks Pt resting in bed, no complaints. (Glenna Marks) Objective Vitals I&O Vital Signs Date Time Temp Pulse Resp B/P Pulse Ox O2 Delivery O2 Flow Rate FiO2 12/10/16 12:00 97.9 76 20 126/58 100 12/10/16 11:00 100 Nasal Cannula 2.00 12/10/16 08:00 97.3 74 18 102/51 100 12/10/16 04:00 Nasal Cannula 2.00 12/10/16 04:00 97.5 78 18 101/56 98 12/10/16 00:00 97.6 101 20 108/57 98 12/10/16 00:00 Nasal Cannula 2.00 12/09/16 22:00 130 22 121/89 97 12/09/16 20:45 126 22 148/69 94 12/09/16 20:30 139 22 178/79 93 12/09/16 20:24 139 22 167/71 95 12/09/16 20:15 140 22 169/90 95 12/09/16 20:10 93 Nasal Cannula 3.00 12/09/16 20:10 93 3.00 12/09/16 20:00 Nasal Cannula 2.00 12/09/16 20:00 98.0 121 20 121/89 98 12/09/16 20:00 157 12/09/16 20:00 153 24 187/85 91 12/09/16 18:15 93 16 142/68 98 Nasal Cannula 2 12/09/16 18:00 94 16 132/74 97 Nasal Cannula 2 12/09/16 17:45 97 16 145/69 97 Nasal Cannula 2 12/09/16 17:30 109 16 140/99 97 Nasal Cannula 2 12/09/16 17:15 160 16 115/83 100 Nasal Cannula 2 12/09/16 17:00 153 16 105/70 98 Nasal Cannula 2 12/09/16 16:45 150 16 161/92 98 Nasal Cannula 2 12/09/16 16:30 135 16 161/94 98 Nasal Cannula 2 I/O 12/09/16 12/09/16 12/09/16 12/10/16 12/10/16 12/10/16 06:59 14:59 22:59 06:59 14:59 22:59 Intake Total 700 ml 740 ml 720 ml Output Total 350 ml 1200 ml 2100 ml Balance 350 ml -460 ml -1380 ml Intake Oral 0 ml 240 ml 480 ml IV Total 500 ml 190 ml Other 700 ml 50 ml Output Urine Total 300 ml 1200 ml 2100 ml Estimated Blood Loss 50 ml # Bowel Movements 2 0 0 Laboratory Laboratory Tests Test 12/09/16 12/10/16 12/10/16 12/10/16 21:45 03:19 12:30 13:17 White Blood Count 18.5 18.8 Red Blood Count 3.77 3.51 Hemoglobin 11.9 11.4 Hematocrit 36.9 33.8 Mean Corpuscular Volume 97.8 96.2 Mean Corpuscular Hemoglobin 31.5 32.4 Mean Corpuscular Hemoglobin 32.2 33.7 Concent Red Cell Distribution Width 14.2 14.0 Platelet Count 347 333 Mean Platelet Volume 8.0 8.1 Neutrophils (%) (Auto) 89.0 86.3 Lymphocytes (%) (Auto) 3.1 5.4 Monocytes (%) (Auto) 7.0 7.7 Eosinophils (%) (Auto) 0.3 0.1 Basophils (%) (Auto) 0.6 0.5 Neutrophils # (Auto) 16.4 16.2 Lymphocytes # (Auto) 0.6 1.0 Monocytes # (Auto) 1.3 1.4 Eosinophils # (Auto) 0.1 0.0 Basophils # (Auto) 0.1 0.1 CBC Comment DIFF FINAL DIFF FINAL Differential Comment Sodium Level 137 135 Potassium Level 3.6 3.8 Chloride Level 104 101 Carbon Dioxide Level 11.6 16.7 Anion Gap 21 17 Blood Urea Nitrogen 17 20 Creatinine 0.97 1.07 Estimat Glomerular Filtration 77 69 Rate Random Glucose 168 179 Calcium Level 7.8 7.6 Magnesium Level 1.8 Total Bilirubin 0.6 Aspartate Amino Transf 19 (AST/SGOT) Alanine Aminotransferase 17 (ALT/SGPT) Alkaline Phosphatase 85 Total Creatine Kinase 105 100 87 Troponin I 0.03 0.04 0.03 B-Type Natriuretic Peptide 678 Total Protein 6.6 Albumin 2.4 Vancomycin Level Trough 17.9 Date/Time Procedure Status Source Growth 12/05/16 17:02 Gram Stain - Final Complete Wound Foot 12/05/16 17:02 Wound Culture - Final Complete Wound Foot 12/05/16 17:02 Fungal Smear - Final Resulted Wound Foot NO FUNGAL ELEMENTS SEEN. 12/05/16 17:02 Fungal Culture Resulted Wound Foot Pending 12/05/16 17:02 Acid Fast Stain - Final Resulted Wound Foot NO ACID FAST BACILLI SEEN 12/05/16 17:02 Mycobacterial Culture Resulted Wound Foot Pending Imaging Last Impressions Chest X-Ray 12/09/16 0000 Signed Impressions: Service Date/Time: Friday, December 09, 2016 20:53 - CONCLUSION: Cardiomegaly with clear lungs. Harsh Queen MD Lower Extremity Ultrasound 12/05/16 0000 Signed Impressions: Service Date/Time: Monday, December 05, 2016 23:02 - CONCLUSION: No evidence of left leg DVT. 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 This could be confirmed with knee MRI if clinically indicated Fabio Mulligan MD Foot X-Ray 12/04/16 1129 Signed Impressions: Service Date/Time: November 11:31 - CONCLUSION: Unremarkable examination of the left foot except for soft tissue air and inflammation in the plantar aspect overlying the second toe and second MTP joint. Joseph Zapata MD Lower Extremity CT 12/04/16 0000 Signed Impressions: Service Date/Time: November 14:26 - CONCLUSION: Significant soft tissue air around the second toe and second MTP joint. I do not see a drainable fluid collection or obvious abscess. There is no underlying bone fracture or foreign body. There is a soft tissue ulcer with some debris. No foreign body is seen. Joseph Zapata MD Aorta w/Runoff CTA 12/04/16 0000 Signed Impressions: Service Date/Time: November 14:26 - CONCLUSION: 1. 2.5 x 1.9 cm hypodense lesion in the uncinate process of the pancreas with resultant pancreatic ductal dilatation and questionable tail atrophy. Findings are concerning for pancreatic adenocarcinoma. Consider further evaluation with endoscopic ultrasound and possible sampling. 2. Combination of inflow and outflow stenoses on the left, as above. If confirmed with angiography, patient may benefit from endovascular intervention. 3. SFA outflow and primarily runoff disease on the right, as above. Ross Sarkar MD Physical Exam HEENT: PERRL; normocephalic; atraumatic; no jaundice. CHEST: CTA CARDIAC: RRR ABDOMEN: Soft, nondistended, nontender; no hepatosplenomegaly; bowel sounds are present in all four quadrants. EXTREMITIES: No clubbing, cyanosis, or edema. SKIN: Normal; no rash; no jaundice. SPECTRAL SCIENTIST: No focal deficits; alert and oriented times three. (Glenna Marks BILLING ANALYST) Assessment and Plan Plan ASSESSMENT: - Pancreatic lesion. Aorta w/Runoff CTA (12/04/16)----> 1. 2.5 x 1.9 cm hypodense lesion in the uncinate process of the pancreas with resultant pancreatic ductal dilatation and questionable tail atrophy. Findings are concerning for pancreatic adenocarcinoma. Consider further evaluation with endoscopic ultrasound and possible sampling. 2. Combination of inflow and outflow stenoses on the left, as above. If confirmed with angiography, patient may benefit from endovascular intervention. 3. SFA outflow and primarily runoff disease on the right, as above. Oncology following, recommends EUS with biopsy. CEA 1.4, Ca19-9 20.8. Denies any known hx of pancreatitis. He reports that he did drink heavily in the past, but stopped about 20 years ago. States weight fluctuates, but denies significant weight loss. S/P EUS 12-09-16--> pancreatic mass not identified, gallbladder polyp AFP 0.9 - Left foot diabetic infection. S/P Left foot incision drainage, 2nd digit amputation, 2nd metatarsal resection (12/05/16) with Dr. Hooks. Vancomycin, Zosyn - Leukocytosis. WBC 12.1. Wound culture pending, Blood culture pending. Vancomycin, Zosyn - Anemia. No active blood loss. 10.5/32.2. - PAD. Aorta with runoff CTA (12/04/16)----> 2. Combination of inflow and outflow stenoses on the left, as above. If confirmed with angiography, patient may benefit from endovascular intervention. 3. SFA outflow and primarily runoff disease on the right, as above. Vascular surgery following, will review CTA and interim would recommend vein mapping and non-invasive arterial study. - DM, Schizophrenia, Atrial fibrillation, HTN, Hyperlipidemia per attending. PLAN: - consider referral to tertiary center for repeat EUS as outpatient - Monitor HH - Oncology following - Podiatry following - Vascular surgery following - Supportive care - Further recommendations to follow based on results of above - Pt seen and examined by Dr. Avitia and myself and this note is written on his behalf (Glenna Marks) Physician Comments Patient seen and examined Agree with above Continue with current supportive care Monitor labs Recommend repeat endoscopic ultrasound at a tertiary center Not much to add from a GI perspective we will sign off (Rick Avitia MD) Glenna Marks Dec 10, 2016 16:19 Rick Avitia MD Dec 10, 2016 22:07
[2016-12-10] MEDS: DILTIAZEM HCL 30 MG TAB PO SCH ×2 (17:38→23:50)
[2016-12-10 20:00] VITALS: BP 142/64; PULSE 104; PULSE 90; RESP 20; TEMP 98; O2SAT 96
--- NOTE | 2016-12-10 20:25 | EKG ---
Date Performed: 12/10/2016 Time Performed: 08:18:59 PTAGE: 66 years EKG: ELECTRONIC VENTRICULAR PACEMAKER PVCS ABNORMAL RHYTHM ECG PREVIOUS TRACING : 12/10/2016 03.22 Compared to prior tracing no significant change DOCTOR: Davidson Drew Interpretating Date/Time 12/10/2016 20:23:21
--- NOTE | 2016-12-10 20:44 | EKG ---
Date Performed: 12/10/2016 Time Performed: 03:22:42 PTAGE: 66 years EKG: Atrial fibrillation with uncontrolled ventricular response with PVC(s) or aberrant ventricu lar conduction Left axis deviation Left bundle branch block Abnormal ECG PREVIOUS TRACING : 12/09/2016 21.29 Compared to the previous tracing rate slower DOCTOR: Davidson Drew Interpretating Date/Time 12/10/2016 20:42:47
--- NOTE | 2016-12-10 20:58 | EKG ---
Date Performed: 12/09/2016 Time Performed: 21:29:38 PTAGE: 66 years EKG: ATRIAL FIBRILLATION WITH RAPID VENTRICULAR RESPONSE WITH ABERRANT CONDUCTION OR VENTRICULAR PREMATURE COMPLEXES INTRAVENTRICULAR CONDUCTION DELAY ABNORMAL ECG PREVIOUS TRACING : 12/04/2016 11.27 Compared to prior tracing no significant change DOCTOR: Davidson Drew Interpretating Date/Time 12/10/2016 20:57:09
[2016-12-10] MEDS: ATORVASTATIN 20 MG TAB PO SCH (22:00)
[2016-12-10] MEDS: INSULIN DETEMIR 100 UNITS/ML VIAL SQ SCH (22:03)
[2016-12-11] VITALS: BP 127/80; PULSE 98; RESP 20; TEMP 97.1; O2SAT 96
[2016-12-11] MEDS: PIPERACIL-TAZO 3.375 GM PREMIX 50 ML IV SCH ×3 (02:56→14:17)
[2016-12-11] MEDS: SODIUM BICARBONATE 8.4% INJ 50 MEQ in DEXTROSE 5% IN WATE 1000ML INJ 1,000 ML IV SCH ×2 (03:08)
[2016-12-11 04:00] VITALS: BP 137/63; PULSE 109; RESP 18; TEMP 98.9; O2SAT 96
[2016-12-11] MEDS: VANCOMYCIN INJ 1,500 MG in SODIUM CHLORID 0.9% 500 ML INJ 500 ML IV SCH (05:14)
[2016-12-11] MEDS: DILTIAZEM HCL 30 MG TAB PO SCH ×2 (05:14→12:05)
[2016-12-11] MEDS: INSULIN ASPART SUPPLEMENTAL SCALE SQ SCH ×2 (06:12→11:00)
[2016-12-11] MEDS: LISINOPRIL 20 MG TAB PO SCH (07:59)
[2016-12-11] MEDS: SODIUM CHLORIDE 0.9% FLUSH 10 ML FLUSH IV FLUSH SCH (07:59)
[2016-12-11 08:00] VITALS: BP 148/72; PULSE 89; RESP 20; TEMP 98.5; O2SAT 96
[2016-12-11 08:26] VITALS: PULSE 111
[2016-12-11 09:17] VITALS: O2SAT 96
--- NOTE | 2016-12-11 11:06 | PD.VS.PN ---
Subjective POD #: 3 Procedure(s): angiogram and balloon angioplasty of above knee popliteal artery. Subjective/Hospital Course Pt in bed w/o complaints, Brother at the Bilat LE warm with motor intact Pain controlled Right groin w/o hematoma Dressing to L 2nd toe amputation site C/D/I Objective Vitals/I&O Date Time Temp Pulse Resp B/P Pulse Ox O2 Delivery O2 Flow Rate FiO2 12/11/16 09:17 96 12/11/16 08:26 111 12/11/16 08:00 98.5 89 20 148/72 96 12/11/16 07:30 Room Air 12/11/16 04:00 98.9 109 18 137/63 96 12/11/16 00:00 97.1 98 20 127/80 96 12/10/16 20:00 104 12/10/16 20:00 98.0 90 20 142/64 96 12/10/16 20:00 Room Air 12/10/16 16:00 97.9 86 20 130/58 99 12/10/16 12:00 97.9 76 20 126/58 100 12/10/16 11:00 100 Nasal Cannula 2.00 12/11/16 12/11/16 12/11/16 06:59 14:59 22:59 Intake Total 616 ml Output Total 800 ml Balance -184 ml Exam: GENERAL: Pt alert in NAD SKIN: Warm and dry/Right groin w/o hematoma/ Dressing to L 2nd toe amputation site C/D/I GASTROINTESTINAL: S/NT MUSCULOSKELETAL: No cyanosis, or edema. R DP/PT with strong signals heard via Doppler L DP/PT with strong signals heard via Doppler Bilat LE warm w/ motor intact Laboratory Laboratory Tests Test 12/10/16 12/10/16 12/11/16 12:30 13:17 05:54 Vancomycin Level Trough 17.9 Total Creatine Kinase 87 Troponin I 0.03 Creatinine 0.83 Estimat Glomerular Filtration 93 Rate Assessment and Plan Assessment: (1) Diabetic foot infection Status: Acute Plan Pt doing well this am and is w/ sufficient blood flow to LE Plan Pt clear for D/C from a Vascular standpoint Arranged for out patient f/u Time and date was given to patient and [facility] [place] [phone] Lena Leon Dec 11, 2016 11:06
[2016-12-11 12:00] VITALS: BP 139/75; PULSE 140; RESP 20; TEMP 98.9; O2SAT 95
[2016-12-11] MEDS ORDERED: ONDANSETRON HCL 4 MG/2 ML VIAL IV PUSH ONE (12:00)
--- NOTE | 2016-12-11 12:12 | HHI.PR ---
Subjective Remarks Follow-up sepsis/diabetic foot infection/rule out pancreatic adenocarcinoma 12/08/16-patient seen and examined, oriented to self however not to date and place. Increasing confusion this a.m. Vitals stable. 12/09/16-patient seen and examined, with multiple loose stools and occasional increased heart rates otherwise stable. Brother by the bedside. Patient is status post angio with balloon angioplasty of left outflow lesion 12/08/16 12/10/16-patient seen and examined, overnight Halicat was ordered 2/2 sustained tachycardia for which he was started on Cardizem drip. Currently rate control and patient pleasantly confused.EUS done yesterday however no mass seen and no biopsy obtained 12/11/16-patient seen and examined, heart rate control and no acute event overnight. Brother by the bedside. Objective Vitals Vital Signs Date Time Temp Pulse Resp B/P Pulse Ox O2 Delivery O2 Flow Rate FiO2 12/11/16 09:17 96 12/11/16 08:26 111 12/11/16 08:00 98.5 89 20 148/72 96 12/11/16 07:30 Room Air 12/11/16 04:00 98.9 109 18 137/63 96 12/11/16 00:00 97.1 98 20 127/80 96 12/10/16 20:00 104 12/10/16 20:00 98.0 90 20 142/64 96 12/10/16 20:00 Room Air 12/10/16 16:00 97.9 86 20 130/58 99 I/O 12/10/16 12/10/16 12/10/16 12/11/16 12/11/16 12/11/16 07:00 15:00 23:00 07:00 15:00 23:00 Intake Total 720 ml 720 ml 1616 ml 616 ml Output Total 2100 ml 700 ml 850 ml 800 ml Balance -1380 ml 20 ml 766 ml -184 ml Intake Oral 480 ml 720 ml 480 ml 240 ml IV Total 190 ml 1136 ml 376 ml Other 50 ml Output Urine Total 2100 ml 700 ml 850 ml 800 ml # Bowel Movements 0 0 Result Diagram: 12/10/16 0319 12/11/16 0554 Imaging Last Impressions Chest X-Ray 12/09/16 0000 Signed Impressions: Service Date/Time: Friday, December 09, 2016 20:53 - CONCLUSION: Cardiomegaly with clear lungs. Harsh Queen MD Lower Extremity Ultrasound 12/05/16 0000 Signed Impressions: Service Date/Time: Monday, December 05, 2016 23:02 - CONCLUSION: No evidence of left leg DVT. 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 This could be confirmed with knee MRI if clinically indicated Fabio Mulligan MD Foot X-Ray 12/04/16 1129 Signed Impressions: Service Date/Time: November 11:31 - CONCLUSION: Unremarkable examination of the left foot except for soft tissue air and inflammation in the plantar aspect overlying the second toe and second MTP joint. Joseph Zapata MD Lower Extremity CT 12/04/16 0000 Signed Impressions: Service Date/Time: November 14:26 - CONCLUSION: Significant soft tissue air around the second toe and second MTP joint. I do not see a drainable fluid collection or obvious abscess. There is no underlying bone fracture or foreign body. There is a soft tissue ulcer with some debris. No foreign body is seen. Joseph Zapata MD Aorta w/Runoff CTA 12/04/16 0000 Signed Impressions: Service Date/Time: November 14:26 - CONCLUSION: 1. 2.5 x 1.9 cm hypodense lesion in the uncinate process of the pancreas with resultant pancreatic ductal dilatation and questionable tail atrophy. Findings are concerning for pancreatic adenocarcinoma. Consider further evaluation with endoscopic ultrasound and possible sampling. 2. Combination of inflow and outflow stenoses on the left, as above. If confirmed with angiography, patient may benefit from endovascular intervention. 3. SFA outflow and primarily runoff disease on the right, as above. Ross Sarkar MD Objective Remarks GENERAL: NAD SKIN: Warm and dry. HEAD: Normocephalic. EYES: No scleral icterus. No injection or drainage. NECK: Supple, trachea midline. No JVD or lymphadenopathy. CARDIOVASCULAR: Irregular Regular rate and rhythm without murmurs, gallops, or rubs. RESPIRATORY: Breath sounds equal bilaterally. No accessory muscle use. GASTROINTESTINAL: Abdomen soft, non-tender, nondistended. MUSCULOSKELETAL: No cyanosis, or edema. BACK: Nontender without obvious deformity. No CVA tenderness. Procedures Left foot incision and drainage, debridement, second digit amputation and second metatarsal resection 12/05/16 A/P Problem List: (1) Severe sepsis ICD Code: A41.9 Status: Acute (2) Leucocytosis ICD Code: D72.829 Status: Acute (3) Diabetic foot infection ICD Code: E11.69 Status: Acute (4) Diabetes ICD Code: E11.9 Status: Acute (5) Hypertension ICD Code: I10 Status: Acute (6) Hyperlipidemia ICD Code: E78.5 Status: Acute (7) Atrial fibrillation ICD Code: I48.91 Status: Acute Assessment and Plan 66-year-old man with Severe sepsis-resolved Repeat blood culture negative to date, continue vancomycin and d/c Zosyn Left foot diabetic wound/infection Left foot DM infection gangrene 2nd digit. Podiatry following. S/P 2nd digit amputation and resection of 2nd metatarsal- , Vascular surgery also following. status post angio with balloon angioplasty of left outflow lesion 12/08/16 Leukocytosis Secondary to sepsis Continue to follow CBC Possible pancreatic adenocarcinoma per imaging . CT reviewed. Oncology and GI following. EUS done 12/07/16 without any mass and no biopsy obtained. Appreciate input from oncology Diabetes mellitus type 2, uncontrolled A1c 10.6 Accu-Cheks with sliding scale insulin hemoglobin A1c 10.6 this admission Hypertension Hold Lopressor and hydrochlorothiazide Continue Cardizem 30 mg 4 times a day Hyperlipidemia On Statin Chronic atrial fibrillation s/p Cardizem drip Continue Cardizem 30 mg 4 times a day and hold Oral anticoagulation contraindicated due to patient history of fall and confusion Diarrhea Resolved DVT prevention -Sequential compression devices Problem Qualifiers (1) Diabetes: Qualified Code: E11.621 - Type 2 diabetes mellitus with foot ulcer, with long- term current use of insulin (2) Hypertension: Qualified Code: I10 - Hypertension, unspecified type (3) Hyperlipidemia: Qualified Code: E78.5 - Hyperlipidemia, unspecified hyperlipidemia type (4) Atrial fibrillation: Qualified Code: I48.91 - Atrial fibrillation, unspecified type Harsh Lambert MD Dec 11, 2016 12:12
[2016-12-11] MEDS ORDERED: DILT31TA PO (12:15)
--- NOTE | 2016-12-11 12:22 | HHI.DS ---
Discharge Summary Admission Date Dec 04, 2016 at 12:52 Discharge Date: Dec 11, 2016 Admitting Diagnosis sepsis/diabetic foot (1) Severe sepsis ICD Code: A41.9 Diagnosis: Principal (2) Leucocytosis ICD Code: D72.829 Diagnosis: Principal (3) Diabetic foot infection ICD Code: E11.69 Diagnosis: Principal (4) Diabetes ICD Code: E11.9 Diagnosis: Secondary (5) Hypertension ICD Code: I10 Diagnosis: Secondary (6) Hyperlipidemia ICD Code: E78.5 Diagnosis: Secondary (7) Atrial fibrillation ICD Code: I48.91 Diagnosis: Secondary Procedures Left foot incision and drainage, debridement, second digit amputation and second metatarsal resection 12/05/16 Brief History - From Admission Written by Rojas You, acting as scribe for Dr. Raygoza on 12/04/16 at 13: 24. 66 year-old male with known history of schizophrenia, hypertension, hyperlipidemia, diabetes, chronic atrial fibrillation, status post permanent pacemaker who presented to hospital with his brother because of left foot wound. The patient was with his brother and [id number], they did watch him on a regular basis due to his schizophrenia. Over the last 2 weeks patient's brother has been out of town working and the patient has been taking care of himself. His egbnsf-[id number]-mdr has been given his insulin shots at night. They noticed that the patient has had a foul stench coming from his foot that is progressing getting worse for the last 2 weeks. He noticed in the last week that he had had difficulty in ambulating with limping. When his brother returned back home from working he noticed a foot wound and foul stench and brought the patient to the hospital today for evaluation. Patient does have a long-standing history of diabetes in which he is on insulin as well as oral medications. There is indications that the patient has had an episode of nausea and vomiting. Is no indication the patient had any fever, chills. Patient had workup done and was found to have severe sepsis secondary to diabetic foot ulceration. The x-ray does indicate air in the soft tissue. ER physician is contacted podiatry for recommendations. Unable to palpate pulses in the foot, nursing staff indicates that pulses are only obtained by Doppler. Vascular surgery was contacted for recommendations. Patient's primary medical doctor Dr. Yanez and [place], family indicates that they are adjusting his diabetic medications to get under better control. 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 CBC/BMP: 12/10/16 0319 12/11/16 0554 Significant Findings Laboratory Tests Test 12/09/16 12/10/16 12/10/16 21:45 03:19 12:30 White Blood Count 18.5 TH/MM3 18.8 TH/MM3 (4.0-11.0) (4.0-11.0) Red Blood Count 3.77 MIL/MM3 3.51 MIL/MM3 (4.50-5.90) (4.50-5.90) Hemoglobin 11.9 GM/DL 11.4 GM/DL (13.0-17.0) (13.0-17.0) Hematocrit 36.9 % 33.8 % (39.0-51.0) (39.0-51.0) Neutrophils (%) (Auto) 89.0 % 86.3 % (16.0-70.0) (16.0-70.0) Lymphocytes (%) (Auto) 3.1 % 5.4 % (9.0-44.0) (9.0-44.0) Neutrophils # (Auto) 16.4 TH/MM3 16.2 TH/MM3 (1.8-7.7) (1.8-7.7) Lymphocytes # (Auto) 0.6 TH/MM3 (1.0-4.8) Monocytes # (Auto) 1.3 TH/MM3 1.4 TH/MM3 (0-0.9) (0-0.9) Carbon Dioxide Level 11.6 MEQ/L 16.7 MEQ/L (21.0-32.0) (21.0-32.0) Anion Gap 21 MEQ/L (5-15) 17 MEQ/L (5-15) Estimat Glomerular Filtration 77 ML/MIN (>89) 69 ML/MIN (>89) Rate Random Glucose 168 MG/DL 179 MG/DL (74-106) (74-106) Calcium Level 7.8 MG/DL 7.6 MG/DL (8.5-10.1) (8.5-10.1) B-Type Natriuretic Peptide 678 PG/ML (0-100) Albumin 2.4 GM/DL (3.4-5.0) Sodium Level 135 MEQ/L (136-145) Blood Urea Nitrogen 20 MG/DL (7-18) Vancomycin Level Trough 17.9 MCG/ML (5.0-10.0) PE at Discharge GENERAL: NAD SKIN: Warm and dry. HEAD: Normocephalic. EYES: No scleral icterus. No injection or drainage. NECK: Supple, trachea midline. No JVD or lymphadenopathy. CARDIOVASCULAR: Irregular Regular rate and rhythm without murmurs, gallops, or rubs. RESPIRATORY: Breath sounds equal bilaterally. No accessory muscle use. GASTROINTESTINAL: Abdomen soft, non-tender, nondistended. MUSCULOSKELETAL: No cyanosis, or edema. BACK: Nontender without obvious deformity. No CVA tenderness. Hospital Course Patient admitted secondary to severe sepsis due to diabetic left foot infection for which he was initially started on IV antibiotics with consultation as well to podiatry ; patient underwent second digit amputation and resection of the second metatarsal on 12/05/16. Vascular surgery was consulted and he underwent and you with bilateral angioplasty of the left outflow lesion on 12/08/16. Oncology was consulted due to finding of possible pancreatic adenocarcinoma per CAT scan imaging, however and EUS performed by gastroenterology on 12/06/16 was without any mass and no biopsy was obtained. Patient has a history of chronic paroxysmal atrial fibrillation however went into RVR for which he was started on Cardizem drip which was subsequently switched to by mouth. Due to episode of hypotension ,patient oral antihypertensive medications were held. He was continued on a sliding scale along with basal insulin. Physical therapy was consulted. Prior to discharge, patient vitals remained stable and his condition improved. The goal is to discharge patient to [facility] were issued continue IV vancomycin with possible consultation to infectious disease specialist Pt Condition on Discharge: Stable Discharge Disposition: Rehab Inpatient Discharge Time: > 30 minutes Discharge Instructions DIET: Follow Instructions for: Diabetic Diet Activities you can perform: Regular-No Restrictions Follow up Referrals: PCP Follow-up - 1 Week Vascular Surgery @ Vascular Surgery with Ti Hess V. DO New Medications: Diltiazem (Cardizem) 30 Mg Tab 30 MG PO Q6HR Regulate Heart Beat #120 TAB Continued Medications: Atorvastatin (Atorvastatin) 20 Mg Tab 20 MG PO HS Cholesterol Management #30 Ref 0 TAB Canagliflozin (Invokana) 300 Mg Tab 300 MG PO DAILY Take before 1st meal of day. Blood Sugar Management #30 Ref 0 TAB Insulin Glargine Inj (Lantus Inj) 1,000 Unit/10 Ml Vial 10 UNITS SQ HS Blood Sugar Management Ref 0 VIAL Linagliptin (Tradjenta) 5 Mg Tab 5 MG PO DAILY Blood Sugar Management #30 Ref 0 TAB Lisinopril (Lisinopril) 20 Mg Tab 40 MG PO DAILY #30 Ref 0 TAB [place]-3/Dha/Epa/Fish Oil (Fish Oil 1,000 mg Softgel) 1,000 Mg Capsule 2000 MG PO BID Discontinued Medications: Ketoconazole Topical (Ketoconazole Topical) 2% Cream 1 APPLIC TOPICAL DAILY Fungal Infection #15 Ref 0 GM Harsh Lambert MD Dec 11, 2016 12:22
[2016-12-11] MEDS ORDERED: BACT800T5 PO (13:28)
[2016-12-11] MEDS ORDERED: DILTIAZEM HCL 30 MG TAB PO ONE (15:00)
[2016-12-11] MEDS ORDERED: DILTIAZEM HCL 60 MG TAB PO SCH (18:00)
== END 2016-12-11 16:11 | DRG 854 ==
LOC: PHED 10:38 → PHEDA 12:52 → N04B 18:30
PROVIDERS: ADMIT Hospitalist; ATTEND Hospitalist
PROC: 0QBP0ZZ Excision of Left Metatarsal, Open Approach (ICD-10-PCS; 2016-12-05)
PROC: 0Y6S0Z0 Detachment at Left 2nd Toe, Complete, Open Approach (ICD-10-PCS; principal; 2016-12-05 16:28)
PROC: 047N3ZZ Dilation of Left Popliteal Artery, Percutaneous Approach (ICD-10-PCS; 2016-12-08)
PROC: B41D1ZZ Fluoroscopy of Aorta and Bilateral Lower Extremity Arteries using Low Osmolar Contrast (ICD-10-PCS; 2016-12-08)
PROC: 0DJ08ZZ Inspection of Upper Intestinal Tract, Via Natural or Artificial Opening Endoscopic (ICD-10-PCS; 2016-12-09)
DX: A41.9 Sepsis, unspecified organism (principal); E11.52 Type 2 diabetes mellitus with diabetic peripheral angiopathy with gangrene; I95.9 Hypotension, unspecified; E11.621 Type 2 diabetes mellitus with foot ulcer; K86.89 Other specified diseases of pancreas; E11.628 Type 2 diabetes mellitus with other skin complications; I48.0 Paroxysmal atrial fibrillation; L97.429 Non-pressure chronic ulcer of left heel and midfoot with unspecified severity; L02.612 Cutaneous abscess of left foot; L97.529 Non-pressure chronic ulcer of other part of left foot with unspecified severity; R65.20 Severe sepsis without septic shock; D64.9 Anemia, unspecified; E11.65 Type 2 diabetes mellitus with hyperglycemia; E78.5 Hyperlipidemia, unspecified; F17.210 Nicotine dependence, cigarettes, uncomplicated; F20.9 Schizophrenia, unspecified; H91.90 Unspecified hearing loss, unspecified ear; R00.0 Tachycardia, unspecified; R19.7 Diarrhea, unspecified; I10 Essential (primary) hypertension; Z79.4 Long term (current) use of insulin; Z95.0 Presence of cardiac pacemaker
CPT/HCPCS: 37224; 43259; 71010; 73630; 73701; 75635; 75710; 80048; 80053; 80061; 80202; 82105; 82378; 82550; 82565; 82947; 82948; 83036; 83605; 83735; 83880; 84155; 84484; 85007; 85025; 85027; 86301; 87015; 87040; 87070; 87102; 87116; 87205; 87206; 88305; 88311; 93005; 93923; 93971; 96361; 96365; C1725; C1769; G0269; J0131; J1170; J1644; J1815; J1940; J2250; J2405; J2543; J3010; J3370; J7030; J7040; J7050; J7070; L3260; Q9967